=== PATIENT | female | born 1960 | race Caucasian/White ===

== ENCOUNTER 2017-01-01 12:31 | Emergency (ER) | payer BC, MEDICARE | END 2017-01-01 15:13 | disposition left against medical advice (07) | LOC: UCEAST 12:31 | DX: J02.9 Acute pharyngitis, unspecified (principal); Z53.21 Procedure and treatment not carried out due to patient leaving prior to being seen by health care provider ==

== ENCOUNTER 2017-02-08 17:29 | Emergency (ER) | payer BC, MEDICARE ==
[2017-02-08 18:11] VITALS: BP 147/74
--- NOTE | 2017-02-08 19:52 | UC ---
Lacy Villanueva Edward, scribed for Avery Modi MD on 02/08/17 at 1859 . Respiratory Complaint HPI - HPI Summary HPI Summary: 56 y/o female presents to [facility] c/o cold-like symptoms. Patient has had these sx for around 3 weeks. Sx include rhinorrhea (green discharge), sore throat ( burning pain rated 5/10 at triage), fatigue, wheezing, FRANCISCO, and a productive cough with green discharge. Denies fever. PMHx no asthma, COPD. Smoker. NKDA. - History of Current Complaint Chief Complaint: UCRespiratory Stated Complaint: COUGH WITH CONGESTION Time Seen by Provider: 02/08/17 18:34 Hx Obtained From: Patient Onset/Duration: Lasting Weeks - Around 3 weeks Pain Intensity: 5 Pain Scale Used: 0-10 Numeric Character: Cough: Productive - Green Associated Signs And Symptoms: Positive: Wheezing, Nasal Congestion - Nasal discharge. Negative: Fever - Allergies/Home Medications Allergies/Adverse Reactions: Allergies Allergy/AdvReac Type Severity Reaction Status Date / Time No Known Allergies Allergy Verified 02/08/17 18:11 PMH/Surg Hx/FS Hx/Imm Hx Previously Healthy: No - Surgical History Surgical History: Yes Surgery Procedure, Year, and Place: colon radiation. full hysterectomy. D&C. Brain surgery - Family History Known Family History: Positive: Hypertension - Mother and sister, Other - Father - lymphoma - Social History Occupation: Student Lives: With Family - Alcohol Use: None Substance Use Type: None Smoking Status (MU): Former Smoker Type: Cigarettes Length of Time of Smoking/Using Tobacco: 8 years Have You Smoked in the Last Year: No When Did the Patient Quit Smoking/Using Tobacco: 1998 Review of Systems Constitutional: Fatigue Skin: Negative Eyes: Negative ENT: Sore Throat, Nasal Discharge - Green Respiratory: Cough - Green discharge, Other - Wheezing Cardiovascular: Negative Gastrointestinal: Negative Genitourinary: Negative Motor: Negative Neurovascular: Negative Musculoskeletal: Negative Neurological: Headache Psychological: Negative All Other Systems Reviewed And Are Negative: Yes Physical Exam Triage Information Reviewed: Yes Appearance: Well-Appearing, No Pain Distress Vital Signs: Initial Vital Signs Temp 98.9 F 02/08/17 18:04 Pulse 94 02/08/17 18:04 Resp 18 02/08/17 18:04 BP 147/74 02/08/17 18:04 Pulse Ox 100 02/08/17 18:04 Vital Signs Reviewed: Yes Eye Exam: Normal ENT: Positive: TMs normal, Other: - Rhinorrhea. Posterior pharynx benign. Neck: Positive: Supple, Nontender Respiratory: Positive: Wheezing - Mild, scattered bilateral wheezing Cardiovascular: Positive: RRR Abdomen Description: Positive: Nontender, Soft Bowel Sounds: Positive: Present Musculoskeletal: Positive: Strength Intact, ROM Intact Neurological: Positive: Alert Psychological Exam: Normal Skin Exam: Normal UC Diagnostic Evaluation - Laboratory O2 Sat by Pulse Oximetry: 100 Respiratory Course/Dx - Course Course Of Treatment: MEDICATIONS REVIEWED. - Differential Dx/Diagnosis Provider Diagnoses: BRONCHITIS Discharge - Discharge Plan Condition: Stable Disposition: HOME Prescriptions: Azithromyxin LASHA (NF) [Z-Lasha (Zithromax) 250 mg tabs #6] 2 tab PO .TODAY, THEN 1 DAILY #6 tab Patient Education Materials: Acute Bronchitis (ED) Referrals: Sangita Pierson NP [Primary Care Provider] - Additional Instructions: FOLLOW UP WITH YOUR DOCTOR. GET SEEN AGAIN OR GO TO THE EMERGENCY DEPARTMENT FOR ANY WORSENING OF YOUR CONDITION OR QUESTIONS OR CONCERNS. The documentation as recorded by the Lacy meng Edward accurately reflects the service I personally performed and the decisions made by me, Avery Modi MD.
== END 2017-02-08 19:16 | disposition home or self-care (01) ==
LOC: UCEAST 17:29
DX: J40 Bronchitis, not specified as acute or chronic (principal); Z87.891 Personal history of nicotine dependence
CPT/HCPCS: 99212; G0463

== ENCOUNTER 2017-02-10 07:05 | Emergency (ER) | payer BC, MEDICARE ==
[2017-02-10 07:14] VITALS: BP 147/78
--- NOTE | 2017-02-10 11:30 | UC ---
Lacy Villanueva Edward, scribed for Carmen Roberson DO on 02/10/17 at 0718 . Complaint Female HPI - HPI Summary HPI Summary: 56 y/o female presents to [facility] c/o burning with urination and hematuria. The patient's symptoms started yesterday. Associated sx: frequency, urgency, and a cough. Denies abd pain, back pain, sore throat, ear ache, CP, SOB, N/V. PMHx seizures, interstitial cystitis, UTI and bronchitis. Patient states that these symptoms are in line with her previous UTIs. She is also currently on Z Pack for bronchitis. - History Of Current Complaint Chief Complaint: UCGU Stated Complaint: URINARY ISSUE Time Seen by Provider: 02/10/17 07:08 Hx Obtained From: Patient Character: Burning - with urination Associated Signs And Symptoms: Negative: Back Pain, Nausea, Vomiting(# Of Episodes =) - Allergies/Home Medications Allergies/Adverse Reactions: Allergies Allergy/AdvReac Type Severity Reaction Status Date / Time No Known Allergies Allergy Verified 02/10/17 07:14 Home Medications: Home Medications Solifenacin(NF) [Vesicare(NF)] 10 mg PO DAILY 02/10/17 [History Confirmed ] PMH/Surg Hx/FS Hx/Imm Hx Previously Healthy: No Endocrine History: Hypothyroidism Other GI/ History: Interstitial cystitis, UTI Neurological History: Seizures Cancer History: Other - Colon CA 2007 Other Cancer History: Colon CA 2007 - Surgical History Surgical History: Yes Surgery Procedure, Year, and Place: colon radiation. full hysterectomy. D&C. Brain surgery - Family History Known Family History: Positive: Hypertension - Mother and sister, Other - Father - lymphoma - Social History Alcohol Use: None Substance Use Type: None Smoking Status (MU): Former Smoker Type: Cigarettes Length of Time of Smoking/Using Tobacco: 8 years Have You Smoked in the Last Year: No When Did the Patient Quit Smoking/Using Tobacco: 1998 Review of Systems Constitutional: Negative Skin: Negative Eyes: Negative ENT: Negative - No sore throat, ear ache, nasal discharge Respiratory: Cough Cardiovascular: Negative - No CP Gastrointestinal: Negative Genitourinary: Dysuria, Hematuria, Frequency, Urgency Motor: Negative Neurovascular: Negative Musculoskeletal: Negative - No body aches Neurological: Negative Psychological: Negative All Other Systems Reviewed And Are Negative: Yes Physical Exam Triage Information Reviewed: Yes Appearance: Well-Appearing, No Pain Distress, Well-Nourished Vital Signs: Initial Vital Signs Temp 96.8 F 02/10/17 07:10 Pulse 93 02/10/17 07:10 Resp 16 02/10/17 07:10 BP 147/78 02/10/17 07:10 Pulse Ox 98 02/10/17 07:10 Vital Signs Reviewed: Yes Eyes: Positive: Conjunctiva Clear. Negative: Discharge ENT: Positive: Hearing grossly normal. Negative: Muffled/hoarse voice Neck exam: Normal Neck: Positive: Supple Respiratory: Positive: Lungs clear, Normal breath sounds, No respiratory distress, No accessory muscle use Cardiovascular: Positive: RRR, No Murmur Abdomen Description: Positive: Nontender, Soft. Negative: CVA Tenderness (R), CVA Tenderness (L), Distended, Guarding Bowel Sounds: Positive: Present Musculoskeletal Exam: Normal Neurological: Positive: Alert, Muscle Tone Normal Psychological Exam: Normal Psychological: Positive: Age Appropriate Behavior Skin Exam: Normal, Other - Warm, dry, normal color Complaint Female Dx - Differential Dx/Diagnosis Provider Diagnoses: UTI, HEMATURIA Discharge - Discharge Plan Condition: Stable Disposition: HOME Prescriptions: Phenazopyridine TAB* [Pyridium TAB*] 200 mdi PO TID PRN #6 tab PRN Reason: Pain Sulfamethox/Trimethoprim DS* [Bactrim DS 800/160 TAB*] 1 tab PO BID #6 tab Patient Education Materials: Urinary Tract Infection in Women (ED), Hematuria ( ED), Interstitial Cystitis (ED) Referrals: Sangita Pierson NP [Primary Care Provider] - (FOLLOW UP IN 2 DAYS IF NOT IMPROVING. OTHERWISE FOLLOW UP IN 2 WEEKS.) Additional Instructions: ANTIBIOTIC THERAPY: You have been given an antibiotic prescription. It's important that you take all the medication, unless instructed otherwise by your physician. Failure to complete the entire course can result in relapse of your condition. Common side effects of antibiotics include nausea, intestinal cramping, or diarrhea. Women may develop vaginal yeast infections, and babies can get yeast (thrush) in the mouth following the use of antibiotics. Contact your physician if you develop significant side effects from this medication. Allergy to this antibiotic can result in hives, wheezing, faintness, or itching. If symptoms of allergy occur, stop the medication and call the doctor. ANYTIME YOU TAKE AN ANTIBIOTIC, IT IS IMPORTANT TO REPLENISH THE BODY'D SUPPLY OF "GOOD BACTERIA." YOU CAN GET GOOD BACTERIA FROM HIGH QUALITY CULTURED FOODS SUCH LOCAL YOGURT, SOUR KRAUT, SHARAN BURAK, NATURALLY FERMENTED PICKLES AND PROBIOTIC DRINKS. YOU CAN ALSO GET GOOD BACTERIA FROM A PROBIOTIC SUPPLEMENT. The documentation as recorded by the scribeLacy Edward accurately reflects the service I personally performed and the decisions made by me, Carmen Roberson DO.
--- NOTE | 2017-02-12 11:06 | UC ---
Progress - Progress Note Progress Note: notify pt UTI resistent to bactrim stop bactrim keflex 500mg bid eRxed
== END 2017-02-10 08:38 | disposition home or self-care (01) ==
LOC: UCEAST 07:05
DX: N39.0 Urinary tract infection, site not specified (principal); R31.9 Hematuria, unspecified; B96.20 Unspecified Escherichia coli [E. coli] as the cause of diseases classified elsewhere; Z16.29 Resistance to other single specified antibiotic; Z16.11 Resistance to penicillins; J40 Bronchitis, not specified as acute or chronic; Z79.2 Long term (current) use of antibiotics; Z87.891 Personal history of nicotine dependence
CPT/HCPCS: 81003; 87077; 87086; 87186; 99212; G0463

== ENCOUNTER → 2017-06-02 07:47 | Emergency (ER) | payer BC, OTHER, MEDICARE ==
[~2017-06-02 07:47] MED LIST: Ketorolac INJ* 60 MG/2 ML VIAL IM ONE
--- NOTE | 2017-06-02 08:51 | RAD ---
HISTORY: Right ankle pain, status post fall COMPARISONS: None VIEWS: 3, Frontal, lateral, and oblique views of the right breast FINDINGS: BONE DENSITY: Normal. BONES: There is no displaced fracture. JOINTS: There is no arthropathy. ALIGNMENT: There is no dislocation. SOFT TISSUES: Unremarkable. OTHER FINDINGS: None. IMPRESSION: NO ACUTE OSSEOUS INJURY. IF SYMPTOMS PERSIST, RECOMMEND REPEAT IMAGING.
--- NOTE | 2017-06-02 08:52 | RAD ---
HISTORY: Right knee pain, status post fall COMPARISONS: None VIEWS: 4, Frontal, lateral, axial, and oblique views of the right knee FINDINGS: BONE DENSITY: Normal. BONES: There is no displaced fracture. JOINTS: There is no arthropathy. ALIGNMENT: There is no dislocation. SOFT TISSUES: There is dystrophic calcification along the lateral distal femur suggestive of a calcific tendinopathy. OTHER FINDINGS: None. IMPRESSION: NO ACUTE OSSEOUS INJURY. IF SYMPTOMS PERSIST, RECOMMEND REPEAT IMAGING.
--- NOTE | 2017-06-02 08:53 | RAD ---
HISTORY: Fall, right-sided chest pain COMPARISONS: None VIEWS: 7, Frontal view of the chest with frontal and oblique views of the right hemithorax. FINDINGS: There is no displaced rib fracture or pneumothorax. The visualized lungs are clear. IMPRESSION: NO DISPLACED RIB FRACTURE OR PNEUMOTHORAX.
[2017-06-02 09:37] VITALS: BP 133/95
--- NOTE | 2017-06-02 18:50 | ED ---
Lacy Villanueva Edward, scribed for Reynaldo Pearl MD on 06/02/17 at 0750 . Adult Trauma - HPI Summary HPI Summary: 56 y/o female presents to the ED c/o immediate onset R ankle pain s/p fall last night. The pt tripped over a curb and fell onto her R side. The ankle pain is rated 9/10 currently, aggravated with walking and weight bearing. Associated sx : R ankle swelling, R knee swelling and pain, R wrist and R breast pain. The pt states her R breast is black and blue s/p fall. PMHx epilepsy. - History of Current Complaint Stated Complaint: FALL, RIGHT FOOT PAIN Hx Obtained From: Patient Mechanism of Injury: Fall Loss of Consciousness: no loss of consciousness Onset/Duration: Still Present Onset of Pain: Immediate Location: Chest - R side brease, Extremities - R ankle, R ankle, R knee Aggravating Factor(s): Weight Bearing, Ambulation Alleviating Factor(s): Nothing Associated Signs & Symptoms: Positive: Ecchymosis - Allergy/Home Medications Allergies/Adverse Reactions: Allergies Allergy/AdvReac Type Severity Reaction Status Date / Time No Known Allergies Allergy Verified 02/10/17 07:14 PMH/Surg Hx/FS Hx/Imm Hx Previously Healthy: No Endocrine/Hematology History: Reports: Hx Thyroid Disease Denies: Hx Diabetes Cardiovascular History: Denies: Hx Hypertension Respiratory History: Denies: Hx Asthma, Hx Chronic Obstructive Pulmonary Disease (COPD) GI History: Denies: Hx Ulcer Musculoskeletal History: Denies: Hx Osteoporosis - Cancer History Cancer Type, Location and Year: Colon CA 2007 Hx Chemotherapy: Yes - ANAL CANCER 2007 Hx Radiation Therapy: Yes - ANAL CANCER 2007 - Surgical History Surgery Procedure, Year, and Place: colon radiation. full hysterectomy. D&C. Brain surgery Infectious Disease History: Denies: Hx Clostridium Difficile, Hx Hepatitis, Hx Human Immunodeficiency Virus (HIV), Hx of Known/Suspected MRSA, Hx Shingles, Hx Tuberculosis, Hx Known/ Suspected VRE, Hx Known/Suspected VRSA, History Other Infectious Disease - Family History Known Family History: Positive: Hypertension - Mother and sister, Other - Father - lymphoma - Social History Alcohol Use: None Substance Use Type: Reports: None Smoking Status (MU): Former Smoker Type: Cigarettes Length of Time of Smoking/Using Tobacco: 8 years Have You Smoked in the Last Year: No Review of Systems Constitutional: Negative Eyes: Negative ENT: Negative Cardiovascular: Negative Respiratory: Negative Gastrointestinal: Negative Genitourinary: Negative Positive: Arthralgia - R knee, R ankle, R wrist, R side breast, Edema - R ankle , R knee Positive: Bruising - R breast Neurological: Negative Psychological: Normal All Other Systems Reviewed And Are Negative: Yes Physical Exam - Summary Physical Exam Summary: VITAL SIGNS: Reviewed. GENERAL: ~Patient is a well-developed and nourished female who is lying comfortable in the stretcher. ~Patient is not in any acute respiratory distress. HEAD AND FACE: No signs of trauma. ~No ecchymosis, hematomas or skull depressions. No sinus tenderness. EYES: PERRLA, EOMI x 2, No injected conjunctiva, no nystagmus. EARS: Hearing grossly intact. Ear canals and tympanic membranes are within normal limits. MOUTH: Oropharynx within normal limits. NECK: Supple, trachea is midline, no adenopathy, no JVD, no carotid bruit, no c- spine tenderness, neck with full ROM. CHEST: Symmetric. Ecchymosis @ R breast. Tenderness to the R ribcage. LUNGS: Clear to auscultation bilaterally. No wheezing or crackles. CVS: Regular rate and rhythm, S1 and S2 present, no murmurs or gallops appreciated. ABDOMEN: Soft, non-tender. No signs of distention. No rebound no guarding, and no masses palpated. Bowel sounds are normal. EXTREMITIES: FROM in all major joints, no cyanosis or clubbing. R ankle pain. Bilateral LE swelling. NEURO: Alert and oriented x 3. No acute neurological deficits. Speech is normal and follows commands. SKIN: Dry and warm Triage Information Reviewed: Yes Vital Signs On Initial Exam: Initial Vitals Temp Pulse Resp BP Pulse Ox 97.9 F 87 20 140/55 99 06/02/17 07:49 06/02/17 07:49 06/02/17 07:49 06/02/17 07:49 06/02/17 07:49 Vital Signs Reviewed: Yes Diagnostics - Vital Signs Vital Signs Temp Pulse Resp BP Pulse Ox 06/02/17 07:49 97.9 F 87 20 140/55 99 - Laboratory Lab Statement: Any lab studies that have been ordered have been reviewed, and results considered in the medical decision making process. - Radiology RIBS W/ CHEST XR Xray Interpretation: No Acute Changes - NO DISPLACED RIB FRACTURE OR PNEUMOTHORAX. Radiology Interpretation Completed By: Radiologist R KNEE XR Xray Interpretation: No Acute Changes - NO ACUTE OSSEOUS INJURY. IF SYMPTOMS PERSIST, RECOMMEND REPEAT IMAGING. Radiology Interpretation Completed By: Radiologist R ANKLE XR Xray Interpretation: No Acute Changes - NO ACUTE OSSEOUS INJURY. IF SYMPTOMS PERSIST, RECOMMEND REPEAT IMAGING. Radiology Interpretation Completed By: Radiologist Adult Trauma Course/Dx - Course Assessment/Plan: 56 y/o female presents to the ED c/o immediate onset R ankle pain s/p fall last night. The pt tripped over a curb and fell onto her R side. The ankle pain is aggravated with walking and weight bearing. Associated sx: R ankle swelling, R knee swelling and pain, R wrist and R breast pain. The pt states her R breast is black and blue s/p fall. PMHx epilepsy. RIBS W/ CHEST XR SHOWS NO DISPLACED RIB FRACTURE OR PNEUMOTHORAX. R KNEE XR and R ANKLE XR SHOW NO ACUTE OSSEOUS INJURY. IF SYMPTOMS PERSIST, RECOMMEND REPEAT IMAGING. Even thought pt doesnt have an ankle fracture maybe the pt has some injury therefore the pt will be placed in karel bandage with gel cast with crutches. The pt was given toradol for pain and her symptoms improved. The pt was recommended to return if her symptoms do not prove or are worsened. Pt is hemodynamically stable, A&Ox3. - Diagnoses Differential Diagnosis/HQI/PQRI: Positive: Contusion(s), Fracture, Dislocation, Sprain, Strain Provider Diagnoses: Knee contusion, Traumatic ecchymosis of right female breast, Ankle sprain Discharge - Discharge Plan Condition: Stable Disposition: HOME Patient Education Materials: Knee Pain (ED), Ankle Sprain (ED), Ecchymosis (ED) Referrals: Sangita Pierson NP [Primary Care Provider] - 4 Days (PLEASE F/U IN 3-5 DAYS) The documentation as recorded by the Lacy meng Edward accurately reflects the service I personally performed and the decisions made by Dae peacock Walter, MD.
== END | disposition home or self-care (01) ==
LOC: ED 07:47
DX: S80.01XA Contusion of right knee, initial encounter (principal); S93.401A Sprain of unspecified ligament of right ankle, initial encounter; S20.01XA Contusion of right breast, initial encounter; W19.XXXA Unspecified fall, initial encounter; Y93.9 Activity, unspecified; Y92.9 Unspecified place or not applicable; Z87.891 Personal history of nicotine dependence
CPT/HCPCS: 96372; 99282

== ENCOUNTER 2018-01-05 13:43 | Emergency (ER) | payer BC, MEDICARE, OTHER ==
--- OUTSIDE RECORDS SUMMARY | 2018-01-05 13:54 | XMS REPORT ---
:1960 External Reference #:[id number] Author Organization [facility] Address [address] [address] Phone [phone] Care Team Providers Name Role Phone Latesha Alex MD Primary Care Physician Unavailable Payers Type Date Identification Numbers Payment Provider Subscriber Commercial Effective: Policy Number: MIN Gloria Johnson 2012 [id number] Group Name: Active Employee [address] PayID: [id number] [place] [address] Medigap Part B Effective: 1996 Policy Number: Medicare Autumn Johnson [id number] Group Name: Sec To Yadiramin Tonny [address] PayID: [id number] [place] [id number] Medigap Part B Effective: 2012 Policy Number: BS Gloria Johnson [id number] PayID: [id number] [address] [address] [place] [id number] Advance Directives Type Date Description Status Comment Other Directive 01/30/2014 Health Care Proxy Current and Verified Problems Date Description Provider Status Onset: 04/05/2011 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 Active digestive and respiratory systems Onset: 05/24/2011 Epilepsy Sangita Pierson, N.P. Active Onset: 05/24/2011 Hyperlipidemia Sangita Pierson, N.P. Active Onset: 11/02/2011 Lymphedema Sangita Pierson, N.P. Active Onset: 06/05/2012 Hypothyroidism Sangita Pierson, N.P. Active Onset: 06/05/2012 Osteochondropathy Sangita Pierson, N.P. Active Family History Date Family Member(s) Problem(s) Comments : (age 69 Father due to Lymphoma Years) Mother Hypertension age 77 Children 2 1 Son - age 25 Healthy 1 Son - age 23 Healthy Siblings 3 Sisters - All Healthy Social History Type Date Description Comments Marital Status Occupation Homemaker Smoking Patient is a former smoker Smoked 3 years, less than a pack a day. Quit at age 20 Exercise Type/Frequency Exercises sporadically Allergies, Adverse Reactions, Alerts Date Description Reaction Status Severity Comments 05/20/2010 No Known Drug Allergy active Medications Medication Date Status Form Strength Qnty SIG Indications Ordering Provider Premarin 10/31 Active Tablets 0.3mg 90tab 1 tablet s po daily Varn, N.P. Compression 04/16 Active Misc 2unit Knee High s 30 - 40 Varn, N.P. mm Synthroid 09/17 Active Tablets 100mcg 90tab take one s tablet by Varn, N.P. mouth every day Caltrate 600+D 04/05 Active Chewtabs 600-400mg 1 po bid -Unit Mickie Rod, [facility] Centrum Silver 04/05 Active Tablets 1 po qd Mickie Rod, [facility] Depakote Active Tablets DR 250mg 360ta 3 tablets Unknown /0000 bs twice a day Lamictal Active Tablets 100mg 1 tablet Unknown /0000 twice a day Dexilant Active Capsules DR 60mg 1 by Unknown /0000 mouth every day Betmiga Active 50mg 1 po qday Fluconazole 08/07 Hx Tablets 150mg 2tabs one by B37.3 mouth december LEODAN Horton - repeat in 09/12 3 days as needed Cephalexin 07/26 Hx Capsules 500mg 28cap take one K11.20 s capsule LEODAN Horton - every 6 12/28 hours 7 days Lotrisone 05/09 Hx Cream 1-0.05% 15uni apply ts externall Varn, N.P. - y bid-tid 09/12 Fluconazole 02/23 Hx Tablets 150mg 2tabs one by Sangita /2017 mouth may Varn, N.P. - repeat in 03/01 3 days needed Lotrisone 02/23 Hx Cream 1-0.05% 15gm apply externall Varn, N.P. - y bid-tid 03/09 Compression 02/20 Hx 1unit use every I89.0 s evening Varn, N.P. - dx: 09/12 lymphed a cpt [id number] Nystatin 07/24 Hx Powder 1unit apply L30.4 s twice a Varn, N.P. - day until 09/12 clears Azithromycin 07/24 Hx Tablets 250mg 6tabs two tabs J20. day one, Varn, N.P. - one daily 08/03 till Benzonatate 07/24 Hx Capsules 100mg 30cap one by J20. s mouth Varn, N.P. - three 08/07 daily as needed for cough Guaifenesin 07/21 Hx Tablets 400mg 60tab One po s bid prn Varn, N.P. - cough 08/04 Cheratussin ac 01/23 Hx Syrup 100-10mg/ 120ml 1 - 2 J20.9 Salbador 5ML teaspoons Sol [facility] - by mouth 02/01 every hours as needed Azithromycin 01/23 Hx Tablets 250mg 6tabs 2 tabs by J20.9 Salbador mouth Sol [facility] - every day 01/28 x1 day, tab by mouth every day x 4 days Levaquin 12/16 Hx Tablets 500mg 10tab 1 by J20.9 s mouth Varn, N.P. - daily for 12/26 10 Prednisone 12/16 Hx Tablets 10mg 40tab 4 tablets J20. s by mouth Varn, N.P. - for 4 01/01 days tablets by mouth for 4 days 2 tablets by mouth for 4 days 1 tablet by mouth for 4 days Cheratussin ac 12/16 Hx Syrup 100-10mg/ 120ml 1 - 2 J20.9 Sangita /2016 5ML teaspoons Varn, N.P. - by mouth 12/23 every hours as needed Flovent HFA 12/16 Hx Aerosol 110mcg/Ac 12gm 2 puffs J20.9 t twice Varn, N.P. - daily 12/30 Azithromycin 12/12 Hx Tablets 250mg 6tabs two tabs H66.92 day one, Varn, N.P. - one daily 12/22 till Benzonatate 12/12 Hx Capsules 200mg 30cap one by J20.9 s mouth Varn, N.P. - three 12/22 daily as needed for cough Ventolin HFA 12/12 Hx Aerosol 108(90Bas 1inha 1 to 2 J20.9 e) ler inhalatio Varn, N.P. - mcg/Act ns every 12/22 4 as needed Fluconazole 10/10 Hx Tablets 150mg 2tabs one by B37.3 mouth may Varn, N.P. - repeat in 12/12 3 days needed Lotrisone 10/10 Hx Cream 1-0.05% 15gm apply B37.3 externall Varn, N.P. - y bid-tid 10/24 Augmentin 09/29 Hx Tablets 875-125mg 20tab one by J01.00 s mouth Varn, N.P. - every 12 10/08 hours ten days Fluticasone 09/29 Hx Suspension 50mcg/Act 16uni 2 sprays J01.00 ts each Varn, N.P. - nostril 10/12 daily needed Benzonatate 09/20 Hx Capsules 200mg 30cap one by J06.9 s mouth Varn, N.P. - three daily as needed for cough Nystatin 08/20 Hx Powder 1unit apply L30.4 s twice a Varn, N.P. - day until 12/12 clears Synthroid 06/25 Hx Tablets 100mcg 30tab 1 by s mouth Varn, N.P. - every day 08/06 Ciprofloxacin HCL 02/12 Hx Tablets 250mg 14tab one by 599.0 s mouth Varn, N.P. - twice a 02/19 day for days Tamiflu 12/24 Hx Capsules 75mg 10cap take one 465.9 Salbador s capsule Sol [facility] - twice 12/31 daily for 5 days. Fluconazole 12/01 Hx Tablets 150mg 2tabs one by 112.1 mouth may Varn, N.P. - repeat in 12/07 3 days as needed Clobetasol 12/01 Hx Cream 0.05% 60gm apply 112.1 thin film Varn, N.P. - twice 02/12 daily not more than 2 weeks then two weeks off and may start again if needed Azithromycin 06/26 Hx Tablets 250mg 6tabs two tabs day one, Varn, N.P. - one daily 07/06 till Benzonatate 06/22 Hx Capsules 100mg 30cap one by 465.9 s mouth Varn, N.P. - three 07/02 daily as needed for cough Triamcinolone 12/08 Hx Cream 0.1% 30gm apply Britton Acetonide twice a Varn, N.P. - day until 01/30 Azithromycin 01/09 Hx Tablets 250mg 6tabs two tabs 466.0 day one, Viola, - one daily M.D., FACP 09/08 till Flovent HFA 01/09 Hx Aerosol 44mcg/Act 1unit 2 puffs 466.0 s twice Viola, - daily for M.D., FACP 01/20 10 Guaifenesin ac 01/09 Hx Syrup 100-10mg/ 100cc 1 tsp by 466.0 5ML mouth Viola, - every day M.D., FACP 09/08 night as needed Levothyroxine 07/01 Hx Tablets 125mcg 30tab 1 po qd 244.9 Sangita Sodium s Varn, N.P. - 08/28 Fluconazole 04/22 Hx Tablets 150mg 2tabs one by 112.1 mouth may Varn, N.P. - repeat in 04/28 3 days as needed Lotrisone 04/22 Hx Cream 1-0.05% 15gm apply 112.1 externall Varn, N.P. - y bid-tid 04/29 Triamcinolone 04/19 Hx Cream 0.1% 30gm apply bid 782.1 Latesha Acetonide until Cotton, - clear M.D. 07/01 Diflucan 04/15 Hx Tablets 150mg 2tabs sig 1 po repeat in Varn, N.P. - 3 days if 05/14 Medrol Dosepak 04/09 Hx Tablets 4mg 1pak as 782.1 directed Varn, N.P. - 04/15 Triamcinolone 04/09 Hx Cream 0.1% 30gm apply bid 782.1 Acetonide until Varn, N.P. - clear 04/16 Cephalexin 04/09 Hx Capsules 500mg 21cap 1 po tid 686.9 s for 7 Varn, N.P. - days 04/16 Nasonex 03/28 Hx Suspension 50mcg/Act 1unit 2 sprays 461.9 s to each Viola, - nostril M.D., FACP 07/01 twice daily Guaiatussin ac 03/28 Hx Syrup 100-10mg/ 4oz 1-2 tsp 461.9 Jayne 5ML by mouth Viola, - qhs prn M.D., FACP 04/09 Amoxicillin 12/18 Hx Capsules 500mg 30cap one po 709.9 Latesha /2012 s tid for Cotton, - 10 days M.D. 12/28 Sulfamethoxazole/ 12/18 Hx Tablets 800-160mg 20tab one po 709.9 Latesha Trimethoprim DS s bid for Cotton, - 10 days M.D. 12/28 Levothyroxine 08/07 Hx Tablets 75mcg 90tab 1 po qd 244.9 Latesha Sodium Obed Cochran M.D. 09/17 Levothyroxine 06/06 Hx Tablets 50mcg 90tab 1 po qd 244.9 Jayne s Obed Rod M.D., [facility] 08/07 Premarin 05/24 Hx Tablets 0.3mg 90tab 1 by Sangita s mouth Varn, N.P. - every day 10/31 Vesicare 04/05 Hx Tablets 10mg 1 po qd Jayne Obed Rod M.D., [facility] 09/08 Hydrochlorothiazi 04/05 Hx Tablets 25mg 90tab 1 po qd 782.3 Latesha de Obed Cochran M.D. 05/[address] 40mg 90tab 1 tablet Latesha /0000 s daily Obed Alex M.D. 04/27 Premarin Hx Tablets 0.625mg 30tab 1 tablet Jayne /0000 s daily Obed Rod M.D., [facility] 05/24 Hydrochlorothiazi Hx Tablets 25mg 90tab 1 tablet Unknown de / s daily - 04/05 Furosemide Hx Tablets 20mg 10tab 1 po Unknown /0000 s qa-va [facility] - um daily 07/01 dose Cephalexin Hx Capsules 500mg 21cap take 1 Unknown /0000 s tablet by - mouth 03/28 times a day Gelnique Hx Gel 3(28)% Unknown /0000 (mg/Act) - 01/30 Vesicare Hx Tablets 10mg 30tab 1 by Unknown /0000 s mouth - every day 04/27 Toviaz Hx Tablets ER 8mg once a Unknown /[address] Obed torres 12/[address] 60mg 30cap 1 by Unknown /0000 s mouth - every day 12/01 Vesicare Hx Tablets 10mg 1 by Unknown /0000 mouth - every day 06/22 Myrbetriq Hx Tablets ER 50mg 1 by Unknown /0000 24HR mouth - every day 09/12 Levofloxacin Hx Solution 25mg/ml 20 Unknown /0000 millilite - rs by 09/11 each day Immunizations CPT Code Status Date Vaccine Lot # [id number] Given 06/10/2015 Flu Vaccine NOS Q2037 Given 06/05/2012 Fluvirin Im 3Yrs And Older [id number] Given 05/24/2011 Afluria Vaccine [id number] Given 05/24/2011 Tdap - Tetanus/Diptheria/Acellular Pertussis [id number] Vital Signs Date Vital Result Comment 12/21/2017 Height 66 inches 5'6" Weight 234.00 lb Heart Rate 60 /min BP Systolic Sitting 140 mmHg BP Diastolic Sitting 76 mmHg Respiratory Rate 16 /min Pain Level 0 BMI (Body Mass Index) 37.8 kg/m2 09/14/2017 Height 66 inches 5'6" Weight 230.00 lb Heart Rate 74 /min BP Systolic Sitting 118 mmHg BP Diastolic Sitting 68 mmHg Respiratory Rate 16 /min Pain Level 0 BMI (Body Mass Index) 37.1 kg/m2 07/26/2017 Height 66 inches 5'6" Weight 238.00 lb Heart Rate 84 /min BP Systolic Sitting 126 mmHg BP Diastolic Sitting 72 mmHg Body Temperature 97.4 F O2 % BldC Oximetry 97 % BMI (Body Mass Index) 38.4 kg/m2 07/19/2017 Weight 238.00 lb Heart Rate 85 /min BP Systolic 132 mmHg BP Diastolic 76 mmHg O2 % BldC Oximetry 96 % 06/08/2017 Weight 238.50 lb Heart Rate 92 /min BP Systolic 120 mmHg BP Diastolic 70 mmHg Body Temperature 97.5 F O2 % BldC Oximetry 98 % 05/25/2017 Weight 241.25 lb Heart Rate 87 /min BP Systolic 120 mmHg BP Diastolic 66 mmHg Body Temperature 96.9 F O2 % BldC Oximetry 98 % 02/20/2017 Height 66 inches 5'6" Weight 232.25 lb Heart Rate 84 /min BP Systolic 110 mmHg BP Diastolic 68 mmHg Body Temperature 97.3 F O2 % BldC Oximetry 97 % BMI (Body Mass Index) 37.5 kg/m2 07/24/2016 Height 66.5 inches 5'6.50" Weight 232.00 lb Heart Rate 86 /min BP Systolic 112 mmHg BP Diastolic 78 mmHg Body Temperature 97.9 F O2 % BldC Oximetry 97 % BMI (Body Mass Index) 36.9 kg/m2 01/24/2016 Weight 229.25 lb Heart Rate 105 /min BP Systolic Sitting 107 mmHg BP Diastolic Sitting 67 mmHg Body Temperature 98.8 F O2 % BldC Oximetry 98 % 12/17/2015 Weight 234.00 lb Heart Rate 96 /min BP Systolic Sitting 118 mmHg BP Diastolic Sitting 70 mmHg Respiratory Rate 15 /min Body Temperature 97.6 F O2 % BldC Oximetry 98 % 12/13/2015 Weight 233.00 lb Heart Rate 99 /min BP Systolic Sitting 126 mmHg BP Diastolic Sitting 74 mmHg Respiratory Rate 16 /min Body Temperature 98.9 F O2 % BldC Oximetry 97 % 10/11/2015 Weight 241.00 lb Heart Rate 98 /min BP Systolic Sitting 119 mmHg BP Diastolic Sitting 69 mmHg Body Temperature 97.3 F O2 % BldC Oximetry 98 % 09/29/2015 Weight 236.00 lb Heart Rate 118 /min BP Systolic Sitting 134 mmHg BP Diastolic Sitting 86 mmHg Body Temperature 97.3 F O2 % BldC Oximetry 98 % 09/20/2015 Weight 235.00 lb Heart Rate 80 /min BP Systolic Sitting 128 mmHg BP Diastolic Sitting 84 mmHg Respiratory Rate 15 /min Body Temperature 98.2 F O2 % BldC Oximetry 99 % 08/20/2015 Weight 229.25 lb Heart Rate 96 /min BP Systolic Sitting 116 mmHg BP Diastolic Sitting 76 mmHg Body Temperature 98.1 F O2 % BldC Oximetry 97 % 2015 Height 66.5 inches 5'6.50" Weight 230.00 lb Heart Rate 64 /min BP Systolic Sitting 124 mmHg BP Diastolic Sitting 80 mmHg Respiratory Rate 14 /min Body Temperature 98.0 F O2 % BldC Oximetry 98 % BMI (Body Mass Index) 36.6 kg/m2 02/17/2015 Height 66.5 inches 5'6.50" Weight 228.25 lb Heart Rate 90 /min BP Systolic 112 mmHg BP Diastolic 63 mmHg Body Temperature 98.5 F BMI (Body Mass Index) 36.3 kg/m2 02/12/2015 Height 66.5 inches 5'6.50" Weight 231.50 lb Heart Rate 84 /min BP Systolic 125 mmHg BP Diastolic 67 mmHg Body Temperature 98.1 F BMI (Body Mass Index) 36.8 kg/m2 12/24/2014 Weight 226.00 lb Heart Rate 112 /min BP Systolic Sitting 104 mmHg BP Diastolic Sitting 70 mmHg Body Temperature 102.8 F O2 % BldC Oximetry 98 % 12/01/2014 Height 66.5 inches 5'6.50" Weight 231.00 lb Heart Rate 85 /min BP Systolic 111 mmHg BP Diastolic 64 mmHg Body Temperature 97.4 F BMI (Body Mass Index) 36.7 kg/m2 2014 Height 67 inches 5'7" Weight 222.00 lb Heart Rate 90 /min BP Systolic Sitting 128 mmHg BP Diastolic Sitting 72 mmHg Body Temperature 98.1 F BMI (Body Mass Index) 34.8 kg/m2 04/28/2014 Height 67 inches 5'7" Weight 222.75 lb Heart Rate 102 /min BP Systolic Sitting 118 mmHg BP Diastolic Sitting 68 mmHg Body Temperature 97.0 F O2 % BldC Oximetry 98 % BMI (Body Mass Index) 34.9 kg/m2 01/30/2014 Height 67 inches 5'7" Weight 231.00 lb Heart Rate 104 /min BP Systolic Sitting 122 mmHg BP Diastolic Sitting 70 mmHg BMI (Body Mass Index) 36.2 kg/m2 09/08/2013 Height 67 inches 5'7" Weight 227.00 lb Heart Rate 70 /min BP Systolic Sitting 120 mmHg BP Diastolic Sitting 78 mmHg BMI (Body Mass Index) 35.5 kg/m2 01/09/2013 Weight 230.00 lb Heart Rate 78 /min BP Systolic Sitting 102 mmHg BP Diastolic Sitting 60 mmHg Body Temperature 98.2 F 08/29/2012 Height 67.5 inches 5'7.50" Weight 231.00 lb Heart Rate 78 /min BP Systolic Sitting 130 mmHg BP Diastolic Sitting 82 mmHg BMI (Body Mass Index) 35.6 kg/m2 07/01/2012 Height 67.5 inches 5'7.50" Weight 231.00 lb Heart Rate 72 /min BP Systolic Sitting 110 mmHg BP Diastolic Sitting 70 mmHg BMI (Body Mass Index) 35.6 kg/m2 06/05/2012 Height 67.5 inches 5'7.50" Weight 227.00 lb Heart Rate 80 /min BP Systolic Sitting 126 mmHg BP Diastolic Sitting 66 mmHg BMI (Body Mass Index) 35.0 kg/m2 05/14/2012 Height 67.5 inches 5'7.50" Weight 224.00 lb Heart Rate 80 /min BP Systolic Sitting 120 mmHg BP Diastolic Sitting 78 mmHg BMI (Body Mass Index) 34.6 kg/m2 04/22/2012 Height 67.5 inches 5'7.50" Weight 222.75 lb Heart Rate 80 /min BP Systolic Sitting 146 mmHg BP Diastolic Sitting 82 mmHg Body Temperature 98.2 F BMI (Body Mass Index) 34.4 kg/m2 04/09/2012 Height 67.5 inches 5'7.50" Weight 225.00 lb Heart Rate 80 /min BP Systolic Sitting 128 mmHg BP Diastolic Sitting 82 mmHg BMI (Body Mass Index) 34.7 kg/m2 03/28/2012 Height 67.5 inches 5'7.50" Weight 221.00 lb Heart Rate 84 /min BP Systolic Sitting 122 mmHg BP Diastolic Sitting 66 mmHg Body Temperature 98.3 F BMI (Body Mass Index) 34.1 kg/m2 12/26/2011 Height 65 inches 5'5" Weight 231.00 lb Heart Rate 86 /min BP Systolic Sitting 122 mmHg BP Diastolic Sitting 74 mmHg BMI (Body Mass Index) 38.4 kg/m2 12/22/2011 Height 65 inches 5'5" Weight 226.00 lb Heart Rate 88 /min BP Systolic Sitting 120 mmHg BP Diastolic Sitting 84 mmHg BMI (Body Mass Index) 37.6 kg/m2 12/19/2011 Height 65 inches 5'5" Weight 231.00 lb Heart Rate 84 /min BP Systolic Sitting 126 mmHg BP Diastolic Sitting 64 mmHg BMI (Body Mass Index) 38.4 kg/m2 07/12/2011 Height 65 inches 5'5" Weight 226.25 lb Heart Rate 72 /min BP Systolic Sitting 122 mmHg l BP Diastolic Sitting 80 mmHg l BMI (Body Mass Index) 37.6 kg/m2 06/06/2011 Height 65 inches 5'5" Weight 218.00 lb BP Systolic Sitting 108 mmHg L BP Diastolic Sitting 62 mmHg L BMI (Body Mass Index) 36.3 kg/m2 05/24/2011 Height 65 inches 5'5" Weight 216.00 lb Heart Rate 80 /min BP Systolic Sitting 110 mmHg l BP Diastolic Sitting 62 mmHg l BMI (Body Mass Index) 35.9 kg/m2 04/27/2011 Height 66 inches 5'6" Weight 220.00 lb Heart Rate 66 /min BP Systolic 132 mmHg BP Diastolic 78 mmHg Body Temperature 97.5 F BMI (Body Mass Index) 35.5 kg/m2 04/05/2011 Height 66 inches 5'6" Weight 220.00 lb Heart Rate 68 /min BP Systolic Sitting 122 mmHg BP Diastolic Sitting 78 mmHg BMI (Body Mass Index) 35.5 kg/m2 06/03/2010 Weight 216.00 lb Heart Rate 78 /min BP Systolic 118 mmHg BP Diastolic 80 mmHg 05/23/2010 Height 66 inches 5'6" Weight 216.50 lb Heart Rate 72 /min BP Systolic 128 mmHg BP Diastolic 84 mmHg BMI (Body Mass Index) 34.9 kg/m2 Results Test Date Test Result H/L Range Note Laboratory test 04/06/2017 Surgical Pathology SEE RESULT BELOW 1, 2 finding Comp Metabolic Panel 03/16/2017 Sodium 135 mmol/L 133-145 Potassium 4.5 mmol/L 3.5-5.0 Chloride 100 mmol/L Low 101-111 Co2 Carbon Dioxide 29 mmol/L 22-32 Anion Gap 6 mmol/L 2-11 Glucose 88 mg/dL 70-100 Blood Urea Nitrogen 12 mg/dL 6-24 Creatinine 0.75 mg/dL 0.51-0.95 BUN/Creatinine Ratio 16.0 8-20 Calcium 9.0 mg/dL 8.6-10.3 Total Protein 6.2 g/dL Low 6.4-8.9 Albumin 3.7 g/dL 3.2-5.2 Globulin 2.5 g/dL 2-4 Albumin/Globulin Ratio 1.5 1-3 Total Bilirubin 0.40 mg/dL 0.2-1.0 Alkaline Phosphatase 45 U/L 34-104 Alt 10 U/L 7-52 Ast 15 U/L 13-39 Egfr Non- 79.9 >60 Egfr 102.8 >60 3 Lipid Profile (Trig/Chol/HDL) 03/16/2017 Triglycerides 151 mg/dL 4 Cholesterol 175 mg/dL 5 HDL Cholesterol 62.3 mg/dL 6 LDL Cholesterol 83 mg/dL 7 Laboratory test finding 03/16/2017 TSH (Thyroid Stim Horm) 4.39 mcIU/mL 0.34-5.60 CBC Auto Diff 03/02/2017 White Blood Count 5.5 10^3/uL 3.5-10.8 Red Blood Count 3.80 10^6/uL Low 4.0-5.4 Hemoglobin 12.8 g/dL 12.0-16.0 Hematocrit 39 % 35-47 Mean Corpuscular Volume 103 fL High 80-97 Mean Corpuscular Hemoglobin 34 pg High 27-31 Mean Corpuscular HGB Conc 33 g/dL 31-36 Red Cell Distribution Width 13 % 10.5-15 Platelet Count 241 10^3/uL 150-450 Mean Platelet Volume 8 um3 7.4-10.4 Abs Neutrophils 3.3 10^3/uL 1.5-7.7 Abs Lymphocytes 1.4 10^3/uL 1.0-4.8 Abs Monocytes 0.7 10^3/uL 0-0.8 Abs Eosinophils 0.1 10^3/uL 0-0.6 Abs Basophils 0 10^3/uL 0-0.2 Abs Nucleated RBC 0 10^3/uL Granulocyte % 60.2 % 38-83 Lymphocyte % 24.8 % Low 25-47 Monocyte % 12.2 % High 1-9 Eosinophil % 1.9 % 0-6 Basophil % 0.9 % 0-2 Nucleated Red Blood Cells % 0 Comp Metabolic Panel 03/02/2017 Sodium 136 mmol/L 133-145 Potassium 4.7 mmol/L 3.5-5.0 Chloride 101 mmol/L 101-111 Co2 Carbon Dioxide 30 mmol/L 22-32 Anion Gap 5 mmol/L 2-11 Glucose 98 mg/dL 70-100 Blood Urea Nitrogen 13 mg/dL 6-24 Creatinine 0.76 mg/dL 0.51-0.95 BUN/Creatinine Ratio 17.1 8-20 Calcium 9.5 mg/dL 8.6-10.3 Total Protein 6.9 g/dL 6.4-8.9 Albumin 4.0 g/dL 3.2-5.2 Globulin 2.9 g/dL 2-4 Albumin/Globulin Ratio 1.4 1-3 Total Bilirubin 0.40 mg/dL 0.2-1.0 Alkaline Phosphatase 47 U/L 34-104 Alt 9 U/L 7-52 Ast 14 U/L 13-39 Egfr Non- 78.7 >60 Egfr 101.2 >60 8 Urine Culture And 02/10/2017 Urine Culture SEE RESULT 9, 10 Sensitivities BELOW Laboratory test 11/10/2016 TSH (Thyroid Stim 4.84 mcIU/mL 0.34-5.6 finding Horm) 0 Laboratory test 2016 Glucose 94 mg/dL 70-100 11 finding Lipid Profile 2016 Triglycerides 133 mg/dL 12 (Trig/Chol/HDL) Cholesterol 198 mg/dL 13 HDL Cholesterol 68.1 mg/dL 14 LDL Cholesterol 103 mg/dL 15 Laboratory test 2016 TSH (Thyroid Stim 4.78 mcIU/mL 0.34-5.60 16 finding Horm) Laboratory test 04/20/2016 Surgical Pathology SEE RESULT BELOW 17, 18 finding CBC Auto Diff 02/18/2016 White Blood Count 5.1 10^3/uL 3.5-10.8 Red Blood Count 3.86 10^6/uL Low 4.0-5.4 Hemoglobin 12.8 g/dL 12.0-16.0 Hematocrit 38 % 35-47 Mean Corpuscular Volume 100 fL High 80-97 Mean Corpuscular Hemoglobin 33 pg High 27-31 Mean Corpuscular HGB Conc 33 g/dL 31-36 Red Cell Distribution Width 14 % 10.5-15 Platelet Count 262 10^3/uL 150-450 Mean Platelet Volume 8 um3 7.4-10.4 Abs Neutrophils 2.9 10^3/uL 1.5-7.7 Abs Lymphocytes 1.4 10^3/uL 1.0-4.8 Abs Monocytes 0.5 10^3/uL 0-0.8 Abs Eosinophils 0.2 10^3/uL 0-0.6 Abs Basophils 0.1 10^3/uL 0-0.2 Abs Nucleated RBC 0 10^3/uL Granulocyte % 56.6 % 38-83 Lymphocyte % 28.2 % 25-47 Monocyte % 10.2 % High 1-9 Eosinophil % 3.6 % 0-6 Basophil % 1.4 % 0-2 Nucleated Red Blood Cells % 0 Comp Metabolic Panel 02/18/2016 Sodium 135 mmol/L 133-145 Potassium 3.7 mmol/L 3.5-5.0 Chloride 100 mmol/L Low 101-111 Co2 Carbon Dioxide 28 mmol/L 22-32 Anion Gap 7 mmol/L 2-11 Glucose 101 mg/dL High 70-100 Blood Urea Nitrogen 10 mg/dL 6-24 Creatinine 0.78 mg/dL 0.51-0.95 BUN/Creatinine Ratio 12.8 8-20 Calcium 9.6 mg/dL 8.6-10.3 Total Protein 6.9 g/dL 6.4-8.9 Albumin 4.1 g/dL 3.2-5.2 Globulin 2.8 g/dL 2-4 Albumin/Globulin Ratio 1.5 1-3 Total Bilirubin 0.30 mg/dL 0.2-1.0 Alkaline Phosphatase 42 U/L 34-104 Alt 15 U/L 7-52 Ast 21 U/L 13-39 Egfr Non- 76.7 >60 Egfr 98.6 >60 19 Laboratory test finding 10/11/2015 Urine Culture And SEE RESULT BELOW 20 Sensitivities Ua Routine 10/11/2015 Ua Specific Higginson 1.015 Ua PH 5 Ua Color yellow Ua Appera clear Ua WBC trace Ua Protein negative Ua Glucose negative Ua Ketones negative Ua Bilirubin negative Ua Urobilinogen negative Ua Nitrite negative Ua Occult Blood positive Laboratory test finding 2015 Urine Culture And SEE RESULT BELOW 21 Sensitivities Ua Routine 2015 Ua Specific Higginson 1.010 Ua PH 5 Ua Color yellow Ua Appera clear Ua WBC neg Ua Protein neg Ua Glucose neg Ua Ketones small Ua Bilirubin neg Ua Urobilinogen neg Ua Nitrite neg Ua Occult Blood small CBC No Diff 04/23/2015 White Blood Count 6.1 10^3/uL 4.8-10.8 Red Blood Count 3.71 10^6/uL Low 4.0-5.4 Hemoglobin 12.8 g/dL 12.0-16.0 Hematocrit 38 % 35-47 Mean Corpuscular Volume 103 fL High 80-97 Mean Corpuscular Hemoglobin 34 pg High 27-31 Mean Corpuscular HGB Conc 33 g/dL 31-36 Red Cell Distribution Width 13 % 10.5-15 Platelet Count 247 10^3/uL 150-450 Mean Platelet Volume 8 um3 7.4-10.4 Comp Metabolic Panel 04/23/2015 Sodium 136 mmol/L 133-145 Potassium 4.1 mmol/L 3.5-5.0 Chloride 100 mmol/L Low 101-111 Co2 Carbon Dioxide 28 mmol/L 22-32 Anion Gap 8 mmol/L 2-11 Glucose 83 mg/dL 70-100 Blood Urea Nitrogen 12 mg/dL 6-24 Creatinine 0.78 mg/dL 0.51-0.95 BUN/Creatinine Ratio 15.4 8-20 Calcium 9.6 mg/dL 8.6-10.3 Total Protein 6.4 g/dL 6.4-8.9 Albumin 4.0 g/dL 3.2-5.2 Globulin 2.4 g/dL 2-4 Albumin/Globulin Ratio 1.7 1-3 Total Bilirubin 0.30 mg/dL 0.2-1.0 Alkaline Phosphatase 46 U/L 34-104 Alt 9 U/L 7-52 Ast 14 U/L 13-39 Egfr Non- 77.0 >60 Egfr 99.0 >60 22 Laboratory test finding 04/23/2015 Valproic Acid (Depakene) 98.0 g/mL 50-100 Hemoglobin A1c (Glyco HGB) 5.6 % Less than 6.0 23 Lamotrigine (Lamictal) 12.4 g/mL 2.5 - 15.0 24 CBC Auto Diff 02/17/2015 White Blood Count 5.4 10^3/uL 4.8-10.8 Red Blood Count 3.79 10^6/uL Low 4.0-5.4 Hemoglobin 13.1 g/dL 12.0-16.0 Hematocrit 39 % 35-47 Mean Corpuscular Volume 104 fL High 80-97 Mean Corpuscular Hemoglobin 35 pg High 27-31 Mean Corpuscular HGB Conc 33 g/dL 31-36 Red Cell Distribution Width 13 % 10.5-15 Platelet Count 266 10^3/uL 150-450 Mean Platelet Volume 8 um3 7.4-10.4 Abs Neutrophils 2.5 10^3/uL 1.5-7.7 Abs Lymphocytes 1.7 10^3/uL 1.0-4.8 Abs Monocytes 0.8 10^3/uL 0-0.8 Abs Eosinophils 0.3 10^3/uL 0-0.6 Abs Basophils 0.1 10^3/uL 0-0.2 Abs Nucleated RBC 0 10^3/uL Granulocyte % 47.3 % 38-83 Lymphocyte % 31.1 % 25-47 Monocyte % 14.4 % High 1-9 Eosinophil % 6.1 % High 0-6 Basophil % 1.1 % 0-2 Nucleated Red Blood Cells % 0.1 Ua Routine 02/17/2015 Ua Specific [place] 1.010 Ua PH 5 Ua Color yellow Ua Appera clear Ua WBC negative Ua Protein negative Ua Glucose negative Ua Ketones small Ua Bilirubin small Ua Urobilinogen normal Ua Nitrite negative Ua Occult Blood NHT Laboratory test finding 02/17/2015 Cytology Non-[employer] SEE RESULT BELOW 25 Ua And Culture 02/12/2015 Urine Culture And SEE RESULT BELOW 26 Sensitivity Sensitivities Urinalysis Profile 02/12/2015 Urine Color Yellow Urine Appearance Clear Urine Specific [place] 1.008 Low 1.010-1.030 Urine pH 5.0 5-9 Urine Urobilinogen Negative Negative Urine Ketones Negative Negative Urine Protein Negative Negative Urine Leukocytes Negative Negative Urine Blood Negative Negative Urine Nitrite Negative Negative Urine Bilirubin Negative Negative Urine Glucose Negative Negative Ua Routine 02/12/2015 Ua Specific Higg[place] 1.005 Ua PH 5 Ua Color yellow Ua Appera clear Ua WBC negative Ua Protein negative Ua Glucose negative Ua Ketones trace Ua Bilirubin small Ua Urobilinogen normal Ua Nitrite negative Ua Occult Blood negative CBC Auto Diff 01/29/2015 White Blood Count 6.5 10^3/uL 4.8-10.8 Red Blood Count 3.69 10^6/uL Low 4.0-5.4 Hemoglobin 12.7 g/dL 12.0-16.0 Hematocrit 38 % 35-47 Mean Corpuscular Volume 104 fL High 80-97 Mean Corpuscular Hemoglobin 35 pg High 27-31 Mean Corpuscular HGB Conc 33 g/dL 31-36 Red Cell Distribution Width 13 % 10.5-15 Platelet Count 306 10^3/uL 150-450 Mean Platelet Volume 7 um3 Low 7.4-10.4 Abs Neutrophils 4.1 10^3/uL 1.5-7.7 Abs Lymphocytes 1.3 10^3/uL 1.0-4.8 Abs Monocytes 0.6 10^3/uL 0-0.8 Abs Eosinophils 0.4 10^3/uL 0-0.6 Abs Basophils 0.1 10^3/uL 0-0.2 Abs Nucleated RBC 0 10^3/uL Granulocyte % 63.4 % 38-83 Lymphocyte % 20.5 % Low 25-47 Monocyte % 9.4 % High 1-9 Eosinophil % 5.5 % 0-6 Basophil % 1.2 % 0-2 Nucleated Red Blood Cells % 0 Comp Metabolic Panel 01/29/2015 Sodium 135 mmol/L 133-145 Potassium 4.0 mmol/L 3.5-5.0 Chloride 100 mmol/L Low 101-111 Co2 Carbon Dioxide 29 mmol/L 22-32 Anion Gap 6 mmol/L 2-11 Glucose 102 mg/dL High 70-100 Blood Urea Nitrogen 9 mg/dL 6-24 Creatinine 0.78 mg/dL 0.51-0.95 BUN/Creatinine Ratio 11.5 8-20 Calcium 9.4 mg/dL 8.6-10.3 Total Protein 6.9 g/dL 6.4-8.9 Albumin 4.1 g/dL 3.2-5.2 Globulin 2.8 g/dL 2-4 Albumin/Globulin Ratio 1.5 1-3 Total Bilirubin 0.30 mg/dL 0.2-1.0 Alkaline Phosphatase 40 U/L 34-104 Alt 9 U/L 7-52 Ast 16 U/L 13-39 Egfr Non- 77.0 >60 Egfr 99.0 >60 27 Laboratory test 01/29/2015 TSH (Thyroid Stim 1.30 ?IU/mL 0.34-5.60 finding Horm) Laboratory test 12/24/2014 Rapid Influenza A B SEE RESULT BELOW 28 finding Antigen Ua Routine 12/01/2014 Ua Specific Higginson 1.020 Ua PH 5 Ua Color yellow Ua Appera cloudy Ua WBC moderate Ua Protein negative Ua Glucose negative\\ Ua Ketones trace Ua Bilirubin trace Ua Urobilinogen normal Ua Nitrite negative Ua Occult Blood trace Urine Culture And Sensitivities 12/01/2014 Urine Culture (SEE NOTE) 29 Lipid Profile (Trig/Chol/HDL) 01/29/2014 Triglycerides 187 mg/dL 30 Cholesterol 206 mg/dL 31 HDL Cholesterol 60.6 mg/dL 32 LDL Cholesterol 108 mg/dL 33 Laboratory test finding 01/29/2014 TSH (Thyroid Stimulating 3.60 IU/mL 0.34-5.60 Horm) CBC With Manual Diff 01/29/2014 White Blood Count 4.9 10^3/uL 4.8-10.8 Red Blood Count 3.68 10^6/uL Low 4.0-5.4 Hemoglobin 12.8 g/dL 12.0-16.0 Hematocrit 36 % 35-47 Mean Corpuscular Volume 99 fL High 80-97 Mean Corpuscular Hemoglobin 35 pg High 27-31 Mean Corpuscular HGB Conc 35 g/dL 31-36 Red Cell Distribution Width 13 % 10.5-15 Platelet Count 267 10^3/uL 150-450 Mean Platelet Volume 7 um3 Low 7.4-10.4 Abs Neutrophils 2.9 10^3/uL 1.5-7.7 Abs Lymphocytes 1.2 10^3/uL 1.0-4.8 Abs Monocytes 0.6 10^3/uL 0-0.8 Abs Eosinophils 0.2 10^3/uL 0-0.6 Abs Basophils 0.1 10^3/uL 0-0.2 Abs Nucleated RBC 0 10^3/uL Neutrophil % 68 % 38-83 Lymphocytes % 22 % Low 25-47 Monocytes % 10 % 0-13 RBC Morphology Normal Normal Comp Metabolic Panel 01/29/2014 Sodium 124 mmol/L Low 133-145 Potassium 3.9 mmol/L 3.7-5.6 Chloride 90 mmol/L Low 101-111 Co2 Carbon Dioxide 26 mmol/L 22-32 Anion Gap 8 mmol/L 2-11 Glucose 82 mg/dL 70-100 Blood Urea Nitrogen 6 mg/dL 6-24 Creatinine 0.78 mg/dL 0.51-0.95 BUN/Creatinine Ratio 7.7 Low 8-20 Calcium 9.2 mg/dL 8.6-10.3 Total Protein 6.4 g/dL 6.4-8.9 Albumin 3.9 g/dL 3.2-5.2 Globulin 2.5 g/dL 2-4 Albumin/Globulin Ratio 1.6 1-3 Total Bilirubin 0.50 mg/dL 0.2-1.0 Alkaline Phosphatase 42 U/L 34-104 Alt 16 U/L 7-52 Ast 27 U/L 13-39 Egfr Non- 77.3 >60 Egfr 99.4 >60 34 CBC Auto Diff 06/12/2013 White Blood Count 5.8 10^3/uL 4.8-10.8 Red Blood Count 3.76 10^6/uL Low 4.0-5.4 Hemoglobin 12.7 g/dL 12.0-16.0 Hematocrit 38 % 35-47 Mean Corpuscular Volume 102 fL High 80-97 Mean Corpuscular Hemoglobin 34 pg High 27-31 Mean Corpuscular HGB Conc 33 g/dL 31-36 Red Cell Distribution Width 13 % 10.5-15 Platelet Count 278 10^3/uL 150-450 Mean Platelet Volume 9 um3 7.4-10.4 Abs Neutrophils 3.2 10^3/uL 1.5-7.7 Abs Lymphocytes 1.7 10^3/uL 1.0-4.8 Abs Monocytes 0.6 10^3/uL 0-0.8 Abs Eosinophils 0.2 10^3/uL 0-0.6 Abs Basophils 0.1 10^3/uL 0-0.2 Abs Nucleated RBC 0.01 10^3/uL Granulocyte % 55.2 % 38-83 Lymphocyte % 29.4 % 25-47 Monocyte % 10.8 % High 1-9 Eosinophil % 3.4 % 0-6 Basophil % 1.2 % 0-2 Nucleated Red Blood Cells % 0.1 Comp Metabolic Panel 06/12/2013 Sodium 133 mmol/L 133-145 Potassium 4.3 mmol/L 3.5-5.0 Chloride 97 mmol/L Low 101-111 Co2 Carbon Dioxide 26.0 mmol/L 22-32 Anion Gap 10.0 mmol/L 2-11 Glucose 89 mg/dL 70-100 Blood Urea Nitrogen 9 mg/dL 6-24 Creatinine 0.80 mg/dL 0.50-1.40 BUN/Creatinine Ratio 11.3 8-20 Calcium 9.3 mg/dL 8.1-9.9 Total Protein 6.4 g/dL 6.2-8.1 Albumin 3.7 g/dL 3.6-5.4 Globulin 2.7 g/dL 2-4 Albumin/Globulin Ratio 1.4 1-3 Total Bilirubin 0.4 mg/dL 0.4-1.5 Alkaline Phosphatase 58 U/L 30-110 Alt 22 U/L 14-54 Ast 23 U/L 12-42 Egfr Non- 75.3 >60 Egfr 96.9 >60 35 Laboratory test finding 08/19/2012 TSH (Thyroid Stimulating 2.14 miu/mL 0.34-5.60 Horm) Free T4 0.96 ng/mL 0.61-1.24 Throat-Beta Strept 07/12/2012 Throat Beta Strep (SEE NOTE) 36 Culture Lipid Profile 06/12/2012 Triglycerides 231 mg/dL High 40-200 (Trig/Chol/HDL) Cholesterol 202 mg/dL High Less than 200 37 HDL Cholesterol 75 mg/dL High 40-60 38 Cholesterol/HDL Ratio 2.7 AVERAGE 1-4.44 LDL Cholesterol 80.8 mg/dL Less Than 100 39 Comp Metabolic Panel 06/12/2012 Sodium 137 mmol/L 133-145 Potassium 4.4 mmol/L 3.5-5.0 Chloride 101 mmol/L 101-111 Co2 Carbon Dioxide 29.0 mmol/L 22-32 Anion Gap 7.0 mmol/L 2-11 Glucose 91 mg/dL 70-100 Blood Urea Nitrogen 10 mg/dL 6-24 Creatinine 0.80 mg/dL 0.50-1.40 BUN/Creatinine Ratio 12.5 8-20 Calcium 9.5 mg/dL 8.1-9.9 Total Protein 6.5 GM/DL 6.2-8.1 Albumin 3.6 GM/DL 3.6-5.4 Globulin 2.9 GM/DL 2-4 Albumin/Globulin Ratio 1.2 1-3 Total Bilirubin 0.4 mg/dL 0.1-1.0 40 Alkaline Phosphatase 54 U/L 30-110 Alt 15 U/L 14-54 Ast 19 U/L 12-42 Egfr Non- 75.6 >60 Egfr 97.3 >60 41 Laboratory test 06/12/2012 TSH (Thyroid 8.28 MIU/ML High 0.34-5.60 finding Stimulating Horm) Free T4 0.68 NG/ML 0.61-1.24 Vitamin D 1,25 And 06/12/2012 Vitamin D 1,25-Dihydroxy 22 pg/mL 18-78 42 Vitamin D,2 Vitamin D, 25 Hydroxy 06/12/2012 25-Hydroxy Vitamin D2 <4.0 ng/mL 25-Hydroxy Vitamin D3 49 ng/mL 25-Hydroxy Vitamin D Total 49 ng/mL 43 Ua Routine 06/05/2012 Ua Specific Higginson 1.010 Ua PH 6 Ua Color yellow Ua Appera clear Ua WBC neg Ua Protein neg Ua Glucose neg Ua Ketones neg Ua Bilirubin neg Ua Urobilinogen neg Ua Nitrite neg Ua Occult Blood non hemo trace Surgical Pathology 03/21/2012 Surgical <SEE 44 Pathology NOTE> Laboratory test 12/22/2011 Surgical <SEE 45 finding Pathology NOTE> Comp Metabolic 12/22/2011 Sodium 130 mmol/L Low 135-145 Panel Potassium 4.6 mmol/L 3.5-5.0 Chloride 94 mmol/L Low 101-111 Co2 (Carbon Dioxide) 27.0 mmol/L 22-32 Anion Gap 9.0 mmol/L 2-11 46 Glucose 107 mg/dL High 70-100 BUN 4 mg/dL Low 6-24 Creatinine 0.9 mg/dL 0.50-1.40 One Over Creatinine 1.11 BUN/Creatinine Ratio 4.4 Low 8-20 Calcium 9.7 mg/dL 8.1-9.9 Total Protein 6.6 GM/DL 6.2-8.1 Albumin 3.9 GM/DL 3.6-5.4 Globulin 2.7 GM/DL 2-4 Albumin/Globulin Ratio 1.4 1-3 Bilirubin Total 0.4 mg/dL 0.4-1.5 47 Alkaline Phosphatase 52 U/L 30-110 Alt (SGPT) 25 U/L 14-54 Ast (Sgot) 28 U/L 12-42 eGFR Non- 66.0 > 60 eGFR 84.9 > 60 48 Laboratory test finding 12/22/2011 C Reactive Protein 0.7 mg/dL High Less Than 0.5 Protime 12/17/2011 Inr 0.81 Low 0.88-1.13 49 Protime 9.6 SEC Low 10.3-13.5 50 Laboratory test finding 12/17/2011 PTT (Aptt) 28.0 SEC 25.1-38.5 BNP Evaluatr 50.0 pg/mL 0-100 Blood Culture 12/17/2011 M <SEE 51 NOTE> CBC Auto Diff 12/17/2011 White Blood Count 5.9 CUMM 4.8-10.8 Red Cell Count 3.58 CUMM Low 4.2-5.4 Hemoglobin 12.6 g/dL 12.0-16.0 Hematocrit 36 % 35-47 Mean Corpuscular Volume 102 um3 High 79-97 Mean Corpuscular Hemoglob 35 pg High 27-31 Mean Corpuscular HGB Cone 35 g/dL 32-36 Redcell Distribution WDTH 13 % 10.5-15 Platelet Count 271 CUMM 150-450 Mean Platelet Volume 7.5 um3 7.4-10.4 Gran % 54.6 % 38-83 Lymph % 23.9 % Low 25-47 Mononuclear % 13.4 % High 1-9 Eosinophil % 6.9 % High 0-6 Basophil % 1.2 % 0-2 Abs Lymphs 1.4 1.0-4.8 Abs Mononuclear 0.8 0-0.8 Absolute Neutrophil Count 3.2 1.5-7.7 Abs Eosinophils 0.4 0-0.6 Abs Basophils 0.1 0-0.2 Comp Metabolic Panel 12/17/2011 Sodium 131 mmol/L Low 135-145 Potassium 3.8 mmol/L 3.5-5.0 Chloride 96 mmol/L Low 101-111 Co2 (Carbon Dioxide) 26.0 mmol/L 22-32 Anion Gap 9.0 mmol/L 2-11 52 Glucose 96 mg/dL 70-100 BUN 7 mg/dL 6-24 Creatinine 0.7 mg/dL 0.50-1.40 One Over Creatinine 1.42 BUN/Creatinine Ratio 10.0 8-20 Calcium 9.5 mg/dL 8.1-9.9 Total Protein 7.0 GM/DL 6.2-8.1 Albumin 3.7 GM/DL 3.6-5.4 Globulin 3.3 GM/DL 2-4 Albumin/Globulin Ratio 1.1 1-3 Bilirubin Total 0.7 mg/dL 0.4-1.5 53 Alkaline Phosphatase 44 U/L 30-110 Alt (SGPT) 16 U/L 14-54 Ast (Sgot) 22 U/L 12-42 eGFR Non- 88.2 > 60 eGFR 113.5 > 60 54 Laboratory test finding 10/30/2011 TSH 3.95 MIU/ML 0.34-5.60 Thyroxine Free 0.80 ng/dL 0.61-1.24 Laboratory test finding 09/15/2011 TSH 6.53 MIU/ML High 0.34-5.60 Thyroxine Free 0.71 ng/dL 0.61-1.24 Laboratory test finding 08/01/2011 Thyroxine Free 0.74 ng/dL 0.61-1.24 TSH 6.88 MIU/ML High 0.34-5.60 Laboratory test finding 06/02/2011 TSH 12.98 MIU/ML High 0.34-5.60 Comp Metabolic Panel 06/02/2011 Sodium 134 mmol/L Low 135-145 Potassium 4.5 mmol/L 3.5-5.0 Chloride 101 mmol/L 101-111 Co2 (Carbon Dioxide) 27.0 mmol/L 22-32 Anion Gap 6.0 mmol/L 2-11 55 Glucose 85 mg/dL 70-100 BUN 9 mg/dL 6-24 Creatinine 0.8 mg/dL 0.50-1.40 One Over Creatinine 1.25 BUN/Creatinine Ratio 11.3 8-20 Calcium 9.6 mg/dL 8.1-9.9 Total Protein 6.2 GM/DL 6.2-8.1 Albumin 3.6 GM/DL 3.6-5.4 Globulin 2.6 GM/DL 2-4 Albumin/Globulin Ratio 1.4 1-3 Bilirubin Total 0.4 mg/dL 0.4-1.5 56 Alkaline Phosphatase 43 U/L 30-110 Alt (SGPT) 13 U/L Low 14-54 Ast (Sgot) 20 U/L 12-42 eGFR Non- 75.9 > 60 eGFR 97.6 > 60 57 Lipid Profile (Trig/Chol/HDL) 06/02/2011 Triglyceride 125 mg/dL 40-200 Cholesterol 186 mg/dL Less Than 200 58 High Density Lipoprotein 87 mg/dL High 40-60 59 Low Density Lipoprotein 74 mg/dL Less Than 100 60 Cholesterol/HDL Ratio 2.14 AVERAGE 1-4.44 Laboratory test finding 05/24/2011 Cytology <SEE 61 NOTE> Comp Metabolic Panel 05/19/2011 Sodium 135 mmol/L 135-145 Potassium 4.9 mmol/L 3.5-5.0 Chloride 101 mmol/L 101-111 Co2 (Carbon Dioxide) 28.0 mmol/L 22-32 Anion Gap 6.0 mmol/L 2-11 62 Glucose 96 mg/dL 70-100 BUN 8 mg/dL 6-24 Creatinine 0.8 mg/dL 0.50-1.40 One Over Creatinine 1.25 BUN/Creatinine Ratio 10.0 8-20 Calcium 9.3 mg/dL 8.1-9.9 Total Protein 6.3 GM/DL 6.2-8.1 Albumin 3.4 GM/DL Low 3.6-5.4 Globulin 2.9 GM/DL 2-4 Albumin/Globulin Ratio 1.2 1-3 Bilirubin Total 0.3 mg/dL Low 0.4-1.5 63 Alkaline Phosphatase 43 U/L 30-110 Alt (SGPT) 11 U/L Low 14-54 Ast (Sgot) 19 U/L 12-42 eGFR Non- 75.9 > 60 eGFR 97.6 > 60 64 Laboratory test finding 05/05/2011 Osmolality 284 MOSMO 281-297 Basic Metabolic Panel 05/05/2011 Sodium 128 mmol/L Low 135-145 Potassium 4.1 mmol/L 3.5-5.0 Chloride 89 mmol/L Low 101-111 Co2 (Carbon Dioxide) 31.0 mmol/L 22-32 Anion Gap 8.0 mmol/L 2-11 65 Glucose 94 mg/dL 70-100 BUN 9 mg/dL 6-24 Creatinine 0.8 mg/dL 0.50-1.40 One Over Creatinine 1.25 BUN/Creatinine Ratio 11.3 8-20 Calcium 10.0 mg/dL High 8.1-9.9 eGFR Non- 75.9 > 60 eGFR 97.6 > 60 66 Basic Metabolic Panel 04/20/2011 Sodium 131 mmol/L Low 135-145 Potassium 3.9 mmol/L 3.5-5.0 Chloride 93 mmol/L Low 101-111 Co2 (Carbon Dioxide) 32.0 mmol/L 22-32 Anion Gap 6.0 mmol/L 2-11 67 Glucose 109 mg/dL High 70-100 BUN 12 mg/dL 6-24 Creatinine 1.0 mg/dL 0.50-1.40 One Over Creatinine 1.00 BUN/Creatinine Ratio 12.0 8-20 Calcium 8.9 mg/dL 8.1-9.9 eGFR Non- 58.7 > 60 eGFR 75.5 > 60 68 Comp Metabolic Panel 04/06/2011 Sodium 131 mmol/L Low 135-145 Potassium 4.7 mmol/L 3.5-5.0 Chloride 95 mmol/L Low 101-111 Co2 (Carbon Dioxide) 29.0 mmol/L 22-32 Anion Gap 7.0 mmol/L 2-11 69 Glucose 111 mg/dL High 70-100 BUN 5 mg/dL Low 6-24 Creatinine 0.9 mg/dL 0.50-1.40 One Over Creatinine 1.11 BUN/Creatinine Ratio 5.6 Low 8-20 Calcium 9.6 mg/dL 8.1-9.9 Total Protein 6.4 GM/DL 6.2-8.1 Albumin 3.7 GM/DL 3.6-5.4 Globulin 2.7 GM/DL 2-4 Albumin/Globulin Ratio 1.4 1-3 Bilirubin Total 0.5 mg/dL 0.4-1.5 70 Alkaline Phosphatase 43 U/L 30-110 Alt (SGPT) 14 U/L 14-54 Ast (Sgot) 24 U/L 12-42 eGFR Non- 66.3 > 60 eGFR 85.2 > 60 71 1 [id number] 2 SEE RESULT BELOW Name: ELIZABETHAUTUMN J : [address]: Marilee Bauer MD Acct: [id number] Unit: [id number] AGE: 56 Location: [facility] Re04/06/17 SEX: F Status: DEP REF SPEC: [id number] CAROL: 04/06/17- SUBM DR: Marilee Bauer MD REQ: [id number] RECD: 04/06/171148 STATUS: ANJEL MOODY DR: Sangita Pierson [facility] _ ORDERED: LEVEL 4 COMMENTS: [id number] FINAL DIAGNOSIS Colon, cecum, biopsy: -- Tubular adenoma. -- No high grade dysplasia or malignancy. CLINICAL HISTORY Screening/surveillance for malignancy in asymptomatic patient with personal or family history of anal cancer. POST-OPERATIVE DIAGNOSIS Colonoscopy; cecal polyps removed with cold snare, otherwise normal. Conclusions/Plan: Await pathology. GROSS DESCRIPTION The specimen is received in formalin labeled, Cecal Polyp, and consists of a 0.7 by up to 0.3 x 0.2 cm mar irregular to polypoid soft tissue fragment which is submitted entirely in one cassette. Signed (signature on file) Prachi Kevin MD 12/20 1236 END OF REPORT * ML=Testing performed at Main Lab DEPARTMENT OF PATHOLOGY, [address] [place] [address] Lenard Woodard M.D. Director [facility] # [id number] 3 Because ethnic data is not always readily available, this report includes an eGFR for both -Americans and non- Americans. The National Kidney Disease Education Program (NKDEP) does not endorse the use of the MDRD equation for patients that are not between the ages of 18 and 70, are , have extremes of body size, muscle mass, or nutritional status, or are non- or non-. According to the National Kidney Foundation, irrespective of diagnosis, the stage of the disease is based on the level of kidney function: Stage Description GFR(mL/min/1.73 m(2)) 1 Kidney damage with normal or decreased GFR 90 2 Kidney damage with mild decrease in GFR 60-89 3 Moderate decrease in GFR 30-59 4 Severe decrease in GFR 15-29 5 Kidney failure <15 (or dialysis) 4 Desirable <150 Borderline high 150-199 High 200-499 Very High >500 5 Desirable <200 Borderline high 200-239 High >239 6 Low <40 Desirable: 40-60 High: >60 7 Desirable: <100 mg/dL Near Optimal: 100-129 mg/dL Borderline High: 130-159 mg/dL High: 160-189 mg/dL Very High: >189 mg/dL 8 Because ethnic data is not always readily available, this report includes an eGFR for both -Americans and non- Americans. The National Kidney Disease Education Program (NKDEP) does not endorse the use of the MDRD equation for patients that are not between the ages of 18 and 70, are , have extremes of body size, muscle mass, or nutritional status, or are non- or non-. According to the National Kidney Foundation, irrespective of diagnosis, the stage of the disease is based on the level of kidney function: Stage Description GFR(mL/min/1.73 m(2)) 1 Kidney damage with normal or decreased GFR 90 2 Kidney damage with mild decrease in GFR 60-89 3 Moderate decrease in GFR 30-59 4 Severe decrease in GFR 15-29 5 Kidney failure <15 (or dialysis) 9 [id number] 10 SEE RESULT BELOW Name: AUTUMN JOHNSON Hayder : [address]: Carmen Carrillo Acct: [id number] Unit: [id number] AGE: 56 Location: [facility] Re02/10/17 SEX: F Status: DEP ER SPEC: [id number] CAROL: 02/10/[address]: Carmen Roberson DO REQ: [id number] RECD: 02/10/17-9102 STATUS: SCHUYLER MOODY DR: Sangita Pierson [facility] _ [facility]: ORDERED: Urine Culture COMMENTS: [id number] Procedure Result Reported Site Urine Culture Final 02/12/17- 0759 ML Organism 1 ESCHERICHIA COLI Sullivan Count 75-100,000 (Many) CFU/ML 1. ESCHERICHIA COLI [facility].I.C. RX --------- ------ Ampicillin >=32 R Cefazolin <=4 S Cefepime <=1 S Ceftriaxone <=1 S Ciprofloxacin <=0.25 S Gentamicin >=16 R Levofloxacin <=0.12 S Meropenem <=0.25 S Nitrofurantoin 32 S Tetracycline <=1 S Pipercillin/Tazobactam <=4 S Trimethoprim/Sulfamethoxazole >=320 R Amoxicillin/Clavulanic Acid 16 I Aztreonam <=1 S Contact the Microbiology Department for any additional antibiotic reporting. * ML - MAIN LAB ([facility]) . END OF REPORT * ML=Testing performed at Main Lab DEPARTMENT OF PATHOLOGY, [address] [place] [address] Lenard Woodard M.D. Director [facility] # [id number] 11 FASTING 10 HOUR 12 Desirable <150 Borderline high 150-199 High 200-499 Very High >500 13 Desirable <200 Borderline high 200-239 High >239 14 Low <40 Desirable: 40-60 High: >60 15 Desirable: <100 mg/dL Near Optimal: 100-129 mg/dL Borderline High: 130-159 mg/dL High: 160-189 mg/dL Very High: >189 mg/dL 16 FASTING 10 HOUR 17 [id number] 18 SEE RESULT BELOW Name: AUTUMN JOHNSON Hayder : [address]: Wes Neff MD Acct: [id number] Unit: [id number] AGE: 55 Location: [facility] Re04/20/16 SEX: F Status: REG REF SPEC: [id number] CAROL: 04/20/16-[address] [facility] DR: Wes Neff MD REQ: [id number] RECD: 04/20/16-1599 STATUS: ANJEL MOODY DR: Sangita Pierson [facility] _ ORDERED: LEVEL IV COMMENTS: [id number] FINAL DIAGNOSIS Stomach, polyps, biopsies: -- Hyperplastic fundic gland polyps. CLINICAL HISTORY Dysphagia, history of Schatzki's ring POST-OPERATIVE DIAGNOSIS Esophagus - Schatzki's ring, dilated with 18 mm balloon. No erosions/May' s; stomach - multiple small polyps removed; duodenum - normal bulb to third portion. Conclusions/Plan: Schatzki's ring dilated, gastric polyps biopsied GROSS DESCRIPTION The specimen is received in formalin labeled, Biopsy Gastric Polyps, and consists of two mar-brown irregular to polypoid soft tissue fragments averaging 0.4 x 0.4 x 0.2 cm, which are entirely submitted in one cassette. Signed (signature on file) Lenard Woodard MD 1219 END OF REPORT * ML=Testing performed at Main Lab DEPARTMENT OF PATHOLOGY, [address] [place] [address] Lenard Woodard M.D. Director [facility] # [id number] 19 Because ethnic data is not always readily available, this report includes an eGFR for both -Americans and non- Americans. The National Kidney Disease Education Program (NKDEP) does not endorse the use of the MDRD equation for patients that are not between the ages of 18 and 70, are , have extremes of body size, muscle mass, or nutritional status, or are non- or non-. According to the National Kidney Foundation, irrespective of diagnosis, the stage of the disease is based on the level of kidney function: Stage Description GFR(mL/min/1.73 m(2)) 1 Kidney damage with normal or decreased GFR 90 2 Kidney damage with mild decrease in GFR 60-89 3 Moderate decrease in GFR 30-59 4 Severe decrease in GFR 15-29 5 Kidney failure <15 (or dialysis) 20 SEE RESULT BELOW Name: AUTUMN JOHNSON Hayder : [address]: Sangita Pierson NP Acct: [id number] Unit: [id number] AGE: 55 Location: [facility] Re10/11/15 SEX: F Status: REG REF SPEC: [id number] CAROL: 10/11/15-[address]: Sangita Pierson NP REQ: [id number] RECD: 10/11/15 STATUS: COMP _ SOURCE: URINE SPDESC: ORDERED: Urine Culture Procedure Result Reported Site Urine Culture Final 10/13/15- 0858 ML Organism 1 NORMAL VENU Sullivan Count 1-10,000 (Few) CFU/ML * ML - MAIN LAB ([facility]) . END OF REPORT * ML=Testing performed at Main Lab DEPARTMENT OF PATHOLOGY, [address] [place] [address] Lenard Woodard M.D. Director [facility] # [id number] 21 SEE RESULT BELOW Name: AUTUMN JOHNSON : [address]: Sangita Pierson NP Acct: [id number] Unit: [id number] AGE: 55 Location: [facility] Re06/22/15 SEX: F Status: REG REF SPEC: [id number] CAROL: 06/22/15-[address]: Sangita Pierson NP REQ: [id number] RECD: 06/22/15 STATUS: COMP _ SOURCE: URINE SPDESC: ORDERED: Urine Culture Procedure Result Verified Site Urine Culture Final 06/24/15- 1031 ML No Growth Day 2 (<1,000 CFU/mL) * ML - MAIN LAB ([facility]) . END OF REPORT * ML=Testing performed at Main Lab DEPARTMENT OF PATHOLOGY, [address] [place] [address] Lenard Woodard M.D. Director [facility] # [id number] 22 Because ethnic data is not always readily available, this report includes an eGFR for both -Americans and non- Americans. The National Kidney Disease Education Program (NKDEP) does not endorse the use of the MDRD equation for patients that are not between the ages of 18 and 70, are , have extremes of body size, muscle mass, or nutritional status, or are non- or non-. According to the National Kidney Foundation, irrespective of diagnosis, the stage of the disease is based on the level of kidney function: Stage Description GFR(mL/min/1.73 m(2)) 1 Kidney damage with normal or decreased GFR 90 2 Kidney damage with mild decrease in GFR 60-89 3 Moderate decrease in GFR 30-59 4 Severe decrease in GFR 15-29 5 Kidney failure <15 (or dialysis) 23 Therapeutic target for the treatment of diabetes Mellitus patients is <7% HBA1C, and in selective patients <6.0%.Please refer to [place] [employer] Diabetic care guidelines for further information. 24 Test Performed by: [address] [address] [employer]rapper: Avery Kasper II, M.D., Ph.D. 25 SEE RESULT BELOW Name: AUTUMN JOHNSON Hayder : [address]: Sangita Pierson NP Acct: [id number] Unit: [id number] AGE: 54 Location: [facility] Re02/17/15 SEX: F Status: REG REF SPEC: [id number] CAROL: 02/17/15-[address] [facility] [address]: Sangita Pierson NP REQ: [id number] RECD: 02/17/15 STATUS: SOUT _ ORDERED: THIN PREP NON G FINAL DIAGNOSIS Urine, voided: Negative for malignant cells. URINE VOID CLINICAL HISTORY Hematuria GROSS DESCRIPTION 7.5 mls of clear yellow voided urine. Signed (signature on file) Prachi Kevin MD 0949 END OF REPORT * ML=Testing performed at Main Lab DEPARTMENT OF PATHOLOGY, [address] [place] [address] Lenard Woodard M.D. Director [facility] # [id number] 26 SEE RESULT BELOW Name: AUTUMN JOHNSON : [address]: Sangita Pierson NP Acct: [id number] Unit: [id number] AGE: 54 Location: [facility] Re02/12/15 SEX: F Status: REG REF SPEC: [id number] CAROL: 02/12/151120 [facility] DR: Sangita Pierson NP REQ: [id number] RECD: 02/12/15 STATUS: COMP _ SOURCE: URINE SPDESC: ORDERED: Urine Culture Procedure Result Verified Site Urine Culture Final 02/14/15- 08 ML No Growth Day 2 (<1,000 CFU/mL) * ML - MAIN LAB ([facility]) . END OF REPORT * ML=Testing performed at Main Lab DEPARTMENT OF PATHOLOGY, [address] [place] [address] Lenard Woodard M.D. Director [facility] # [id number] 27 Because ethnic data is not always readily available, this report includes an eGFR for both -Americans and non- Americans. The National Kidney Disease Education Program (NKDEP) does not endorse the use of the MDRD equation for patients that are not between the ages of 18 and 70, are , have extremes of body size, muscle mass, or nutritional status, or are non- or non-. According to the National Kidney Foundation, irrespective of diagnosis, the stage of the disease is based on the level of kidney function: Stage Description GFR(mL/min/1.73 m(2)) 1 Kidney damage with normal or decreased GFR 90 2 Kidney damage with mild decrease in GFR 60-89 3 Moderate decrease in GFR 30-59 4 Severe decrease in GFR 15-29 5 Kidney failure <15 (or dialysis) 28 SEE RESULT BELOW Name: AUTUMN JOHNSON : [address]: Salbador Horton NP Acct: [id number] Unit: [id number] AGE: 54 Location: [facility] Re12/24/14 SEX: F Status: REG REF SPEC: [id number] CAROL: 12/24/14-[address]: Salbador Horton NP REQ: [id number] RECD: 12/24/14-1800 STATUS: COMP _ SOURCE: [facility]: ORDERED: Rapid Flu A B Procedure Result Verified Site Rapid Influenza A B Antigen Final 12/24/14- 2100 ML Organism 1 Negative Influenza A B Antigen testing by enzyme immunoassay. Cell culture testing can be performed to confirm negative test results and to assist in detecting other viruses that can produce similar clinical symptoms. Please notify Microbiology Lab if further testing is desired. * ML - MAIN LAB ([facility]) . END OF REPORT * ML=Testing performed at Main Lab DEPARTMENT OF PATHOLOGY, [facility] [address] [place], [place] [address] Lenard Woodard M.D. Director [facility] # [id number] 29 RUN DATE: 12/03/14 [facility] LIVE PAGE 1 RUN TIME: 3190 [facility] Fetch MD [place], [place] [address] Specimen Inquiry Name: AUTUMN JOHNSON : [address]: Sangita Pierson NP Acct: [id number] Unit: [id number] AGE: 54 Location: [facility] Re12/01/14 SEX: F Status: REG REF SPEC: [id number] CAROL: 12/01/14-[address]: Sangita Pierson NP REQ: [id number] RECD: 12/01/14 STATUS: COMP _ SOURCE: URINE SPDESC: ORDERED: Urine Culture QUERIES: Provider Requisition # [id number] Procedure Result Verified Site Urine Culture Final 12/03/14- 1156 ML No Growth Day 2 (<1,000 CFU/mL) * ML - MAIN LAB ([facility]) . END OF REPORT * ML=Testing performed at Main Lab DEPARTMENT OF PATHOLOGY, [address] [place] [address] Lenard Woodard M.D. Director [facility] # [id number] 30 Desirable <150 Borderline high 150-199 High 200-499 Very High >500 31 Desirable <200 Borderline high 200-239 High >239 32 Low <40 Desirable: 40-60 High: >60 33 Desirable <100 Near Optimal 100-129 Borderline high 130-159 High 160-189 Very High >189 34 Because ethnic data is not always readily available, this report includes an eGFR for both -Americans and non- Americans. The National Kidney Disease Education Program (NKDEP) does not endorse the use of the MDRD equation for patients that are not between the ages of 18 and 70, are , have extremes of body size, muscle mass, or nutritional status, or are non- or non-. According to the National Kidney Foundation, irrespective of diagnosis, the stage of the disease is based on the level of kidney function: Stage Description GFR(mL/min/1.73 m(2)) 1 Kidney damage with normal or decreased GFR 90 2 Kidney damage with mild decrease in GFR 60-89 3 Moderate decrease in GFR 30-59 4 Severe decrease in GFR 15-29 5 Kidney failure <15 (or dialysis) 35 Because ethnic data is not always readily available, this report includes an eGFR for both -Americans and non- Americans. The National Kidney Disease Education Program (NKDEP) does not endorse the use of the MDRD equation for patients that are not between the ages of 18 and 70, are , have extremes of body size, muscle mass, or nutritional status, or are non- or non-. According to the National Kidney Foundation, irrespective of diagnosis, the stage of the disease is based on the level of kidney function: Stage Description GFR(mL/min/1.73 m(2)) 1 Kidney damage with normal or decreased GFR 90 2 Kidney damage with mild decrease in GFR 60-89 3 Moderate decrease in GFR 30-59 4 Severe decrease in GFR 15-29 5 Kidney failure <15 (or dialysis) 36 RUN DATE: 07/14/12 [facility] LIVE PAGE 1 RUN TIME: 1006 [address] [place], [place] [address] Specimen Inquiry Name: AUTUMN JOHNSON : [address]: Juventino Slade DO Acct: [id number] Unit: [id number] AGE: 52 Location: [facility] Re07/12/12 SEX: F Status: DEP ER SPEC: [id number] CAROL: 07/12/12-7[address] [facility] [address]: Cayla Breen PA REQ: [id number] RECD: 07/12/125623 STATUS: [facility]U[place] [place] DR: Sangita Pierson DO, Martin K. _ SOURCE: THROAT SPDESC: ORDERED: Throat Beta Str Procedure Result Verified Site Throat Beta Strep Culture Final 07/14/12- 1001 ML Negative For Group A Beta Streptococcus END OF REPORT * ML=Testing performed at Main Lab DEPARTMENT OF PATHOLOGY, [address] [place] [address] Lenard Woodard M.D. Director [facility] Permit #[id number] Desirable: Less than 200 MG/DL Borderline-High Risk: 200-239 MG/DL High-Risk: 240 MG/DL and over 38 HDL Interpretation: Undesirable: High Risk: Less than 40 MG/DL Desirable: Low Risk: Greater than 60 MG/DL 39 LDL Interpretation: Low Risk Optimal Level: LDL Less than 100 MG/DL Near or Above Optimal: LDL 100-129 MG/DL Borderline High Risk: LDL 130-159 MG/DL High Risk: LDL 160-189 MG/DL Very High Risk: LDL Greater than 189 MG/DL 40 A metabolite of Naproxen, O-desmethylnaproxen, has been shown to interfere with the [place] method for measuring total bilirubin. Samples from patients who have taken Naproxen have shown spurious elevation in total bilirubin levels. 41 Because ethnic data is not always readily available, this report includes an eGFR for both -Americans and non- Americans. The National Kidney Disease Education Program (NKDEP) does not endorse the use of the MDRD equation for patients that are not between the ages of 18 and 70, are , have extremes of body size, muscle mass, or nutritional status, or are non- or non-. According to the National Kidney Foundation, irrespective of diagnosis, the stage of the disease is based on the level of kidney function: Stage Description GFR(mL/min/1.73 m(2)) 1 Kidney damage with normal or decreased GFR 90 2 Kidney damage with mild decrease in GFR 60-89 3 Moderate decrease in GFR 30-59 4 Severe decrease in GFR 15-29 5 Kidney failure <15 (or dialysis) 42 Test Performed by: [place] [address] Candle Wrapper: Renan Swan III, M.D. R 43 -- REFERENCE VALUE -- 25-HYDROXY D TOTAL (D2+D3) Optimum levels in the normal population are 25-80 Test Performed by: [place] [address] Candle Wrapper: Renan Swan III, M.D. R 44 ---- RUN DATE: 03/22/12 [facility] NMI LIVE PAGE 1 RUN TIME: 1330 Specimen Inquiry RUN USER: INTERFACE -- Name: AUTUMN JOHNSON [facility]#: [id number] Status: REG REF Re03/21/12 Age/Sex: 51/F Unit#: [id number] Location: [address] [place] [address]. : 60 -- Specimen: [id number] SOUT Spec Date:03/21/12 Dr: Wes herbert MD Spec Type: SURGICAL P Received:03/21/12-1242 Copies to: Sangita Pierson [facility] SPECIMEN 1) HEPATIC FLEXURE BIOPSY 2) DESCENDING COLON BIOPSY HISTORY POST-OP DIAGNOSIS: Colonoscopy into cecum. Two small polyps removed. CLINICAL INFORMATION: Rectal bleeding. History of anal carcinoma. GROSS DESCRIPTION 1) The specimen is received in formalin labelled Autumn Johnson, Hepatic Flexure Biopsy, and consists of one fragment of pink tissue measuring 0.2 x 0.2 x 0.2 cm. Submitted entirely, one cassette labelled 1. 2) The specimen is received in formalin labelled Autumn Johnson, Descending Colon Biopsy, and consists of two fragments of yellow two fragments of yellow tissue each measuring 0.3 x 0.2 x 0.2 cm. Submitted entirely, one cassette labelled 2. DIAGNOSIS 1) Hepatic flexure, biopsy: A. Tubular adenoma. B. No high grade dysplasia or malignancy. 2) Descending colon, biopsy: A. Tubular adenoma. B. No high grade dysplasia or malignancy. Signed Electronically by: PJ INIGUEZ 03/22/12 6733 -- -- DEPARTMENT OF PATHOLOGY, [address] [place] [address] [facility] Permit #[id number] Mickie Topete M.D. Assistant Dir mohit -- 45 ---- RUN DATE: 12/26/11 [facility] NMI LIVE PAGE 1 RUN TIME: 1401 Specimen Inquiry RUN USER: INTERFACE -- Name: AUTUMN JOHNSON#: [id number] Status: REG REF Re12/22/11 Age/Sex: 51/F Unit#: [id number] Location: [facility] : 60 -- Specimen: [id number] SOUT Spec Date:12/22/[address]: Sangita Pierson [facility] Spec Type: SURGICAL P Received:12/25/11 Copies to: SPECIMEN RIGHT DE ANDA PUNCH BIOPSY HISTORY PRE-OP DIAGNOSIS: Rash on lower legs GROSS DESCRIPTION The specimen is received in formalin labelled Autumn Johnson, Right [place], Punch Biopsy, and consists of a skin punch biopsy specimen measuring 0.4 x 0.4 x 0.5 cm. The specimen is inked and bisected. Submitted entirely, one cassette. DIAGNOSIS Skin, right chin, punch biopsy: Superficial mixed perivascular dermatitis without vascular damage (see comment). COMMENT The biopsy demonstrates focal hyperparakeratosis with mild spongiosis of epidermis and predominantly superficial perivascular dermatitis with a mixed perivascular infiltrate composed of lymphocytes and rare polymorphonuclear cells. The differential diagnosis includes primarily urticaria/angioedema, photo allergic reaction, drug reaction or less likely early stasis dermatitis. Features of arthropod assault reaction are not seen. No evidence of leukocytoclastic vasculitis noted. Signed Electronically by: LENARD WOODARD MD 12/26/11 1403 -- -- DEPARTMENT OF PATHOLOGY, [address] [place] [address] [facility] Permit #[id number] Lenard Wodoard M.D. Director Pj Iniguez M.D. Transitions Rn Care Coordinator Dir mohit -- 46 Anion gap measurement may be of limited value in the presence of any alkalosis, especially in a combined acid base disorder. . 47 A metabolite of Naproxen, O-desmethylnaproxen, has been shown to interfere with the [place] method for measuring total bilirubin. Samples from patients who have taken Naproxen have shown spurious elevation in total bilirubin levels. 48 Because ethnic data is not always readily available, this report includes an eGFR for both -Americans and non- Americans. The National Kidney Disease Education Program (NKDEP) does not endorse the use of the MDRD equation for patients that are not between the ages of 18 and 70, are , have extremes of body size, muscle mass, or nutritional status, or are non- or non-. According to the National Kidney Foundation, irrespective of diagnosis, the stage of the disease is based on the level of kidney function: Stage Description GFR(mL/min/1.73 m(2)) 1 Kidney damage with normal or decreased GFR 90 2 Kidney damage with mild decrease in GFR 60-89 3 Moderate decrease in GFR 30-59 4 Severe decrease in GFR 15-29 5 Kidney failure <15 (or dialysis) 49 Recommended INR for Patients on Oral Anticoagulants Prophylaxis 2.0 - 3.0 Treatment of thrombosis 2.0 - 3.0 Prevention of embolism 2.0 - 3.0 Prevention of embolism from prosthetic heart valves 2.5 - 3.5 50 DIAGNOSIS,TREATMENT,AND THERAPY MUST BE BASED ON THE INR VALUE ALONE. 51 RUN DATE: 12/22/11 [facility] NMI LIVE PAGE 1 RUN TIME: 820 Specimen Inquiry RUN USER: INTERFACE Name: DIPESHNIDHIAUTUMN Accpj#: [id number] Status: IZA STERLING Re12/17/11 Age/Sex: 51/F Unit#: [id number] Location: : 60 SPEC #: [id number] CAROL: 12/17/11 STATUS: [place] #: [id number] RECD: 12/17/[address]: [facility] SOURCE: BLOOD ENTR: 12/17/11 [facility] DR: Sangita LuaESC: BLOOD,VENO ORDERED: BLOOD CULTURE ACT WKST: 12/18/11 #1 Procedure Result Verified Site > AEROBIC CULTURE BOTTLE Final -820 ML NO GROWTH AFTER 5 DAYS > ANAEROBIC CULTURE BOTTLE Final -820 ML NO GROWTH AFTER 5 DAYS ML - [facility] Permit #[id number] [facility] Fetch MD [facility] [address] DEPARTMENT OF PATHOLOGY, [facility] [address] [place], [place] [address] [facility] Permit #[id number] Lenard Woodard M.D. Director Pj Iniguez M.D. Sock Lining Examiner 52 Anion gap measurement may be of limited value in the presence of any alkalosis, especially in a combined acid base disorder. . 53 A metabolite of Naproxen, O-desmethylnaproxen, has been shown to interfere with the [place]-Whit method for measuring total bilirubin. Samples from patients who have taken Naproxen have shown spurious elevation in total bilirubin levels. 54 Because ethnic data is not always readily available, this report includes an eGFR for both -Americans and non- Americans. The National Kidney Disease Education Program (NKDEP) does not endorse the use of the MDRD equation for patients that are not between the ages of 18 and 70, are , have extremes of body size, muscle mass, or nutritional status, or are non- or non-. According to the National Kidney Foundation, irrespective of diagnosis, the stage of the disease is based on the level of kidney function: Stage Description GFR(mL/min/1.73 m(2)) 1 Kidney damage with normal or decreased GFR 90 2 Kidney damage with mild decrease in GFR 60-89 3 Moderate decrease in GFR 30-59 4 Severe decrease in GFR 15-29 5 Kidney failure <15 (or dialysis) 55 Anion gap measurement may be of limited value in the presence of any alkalosis, especially in a combined acid base disorder. . 56 A metabolite of Naproxen, O-desmethylnaproxen, has been shown to interfere with the [place] method for measuring total bilirubin. Samples from patients who have taken Naproxen have shown spurious elevation in total bilirubin levels. 57 Because ethnic data is not always readily available, this report includes an eGFR for both -Americans and non- Americans. The National Kidney Disease Education Program (NKDEP) does not endorse the use of the MDRD equation for patients that are not between the ages of 18 and 70, are , have extremes of body size, muscle mass, or nutritional status, or are non- or non-. According to the National Kidney Foundation, irrespective of diagnosis, the stage of the disease is based on the level of kidney function: Stage Description GFR(mL/min/1.73 m(2)) 1 Kidney damage with normal or decreased GFR 90 2 Kidney damage with mild decrease in GFR 60-89 3 Moderate decrease in GFR 30-59 4 Severe decrease in GFR 15-29 5 Kidney failure <15 (or dialysis) 58 CHOLESTEROL INTERPRETATION: Desirable: Less than 200 MG/DL Borderline-High Risk: 200-239 MG/DL High-Risk: 240 MG/DL and over 59 HDL INTERPRETATION: Undesirable: High Risk: Less than 40 MG/DL Desirable: Low Risk: Greater than 60 MG/DL 60 LDL INTERPRETATION: Low Risk Optimal Level: LDL Less than 100 MG/DL Near or Above Optimal: LDL 100-129 MG/DL Borderline High Risk: LDL 130-159 MG/DL High Risk: LDL 160-189 MG/DL Very High Risk: LDL Greater than 189 MG/DL 61 ---- RUN DATE: 05/25/11 [facility] NMI LIVE PAGE 1 RUN TIME: 1606 Specimen Inquiry RUN USER: INTERFACE -- Name: AUTUMN JOHNSON [facility]#: [id number] Status: REG REF Re05/24/11 Age/Sex: 50/F Unit#: [id number] Location: [facility]. : 60 -- Specimen: [id number] SOUT Spec Date: 05/24/[address]: Sangita del toro [facility] Spec Type: CYTOLOGY Received: 05/25/11-4860 Copies to: SOURCE ECTOCERVICAL/ENDOCERVICAL Thin Prep with Reflex HPV Test PATIENT INFORMATION ACTUAL COLLECTION DATE: 05/24/11 ? No POST MENOPAUSAL? Yes HYSTERECTOMY? No DATE OF PRIOR SPECIMEN: 03/18/10 ADEQUACY OF SPECIMEN Satisfactory for evaluation * Transformation zone component identified * DIAGNOSIS NEGATIVE FOR INTRAEPITHELIAL LESION OR MALIGNANCY * This Pap test was evaluated with the assistance of the ThinPrep Pap Test Imaging System. The Pap Smear is a screening test designed to aid in the detection of premalign ant and malignant conditions of the uterine cervix. It is not a diagnostic procedure a nd should not be used as the sole means of detecting cervical cancer. Both false- positiv e and false-negative reports do occur. Depending on your risk status, a Pap smear lizz uld be obtained and evaluated every one to three years. Initial evaluation performed by Reymundo DEL VALLE CT(ASCP) 05/25/11 Final Interpretation electronically signed by: Reymundo DEL VALLE CT(ASCP) 05/25/11 1606 -- -- DEPARTMENT OF PATHOLOGY, [address] [place] [address] [facility] Permit #[id number] Lenard Woodard M.D. Director Pj Iniguez M.D. Transitions Rn Care Coordinator Dir mohit -- 62 Anion gap measurement may be of limited value in the presence of any alkalosis, especially in a combined acid base disorder. . 63 A metabolite of Naproxen, O-desmethylnaproxen, has been shown to interfere with the [place] method for measuring total bilirubin. Samples from patients who have taken Naproxen have shown spurious elevation in total bilirubin levels. 64 Because ethnic data is not always readily available, this report includes an eGFR for both -Americans and non- Americans. The National Kidney Disease Education Program (NKDEP) does not endorse the use of the MDRD equation for patients that are not between the ages of 18 and 70, are , have extremes of body size, muscle mass, or nutritional status, or are non- or non-. According to the National Kidney Foundation, irrespective of diagnosis, the stage of the disease is based on the level of kidney function: Stage Description GFR(mL/min/1.73 m(2)) 1 Kidney damage with normal or decreased GFR 90 2 Kidney damage with mild decrease in GFR 60-89 3 Moderate decrease in GFR 30-59 4 Severe decrease in GFR 15-29 5 Kidney failure <15 (or dialysis) 65 Anion gap measurement may be of limited value in the presence of any alkalosis, especially in a combined acid base disorder. . 66 Because ethnic data is not always readily available, this report includes an eGFR for both -Americans and non- Americans. The National Kidney Disease Education Program (NKDEP) does not endorse the use of the MDRD equation for patients that are not between the ages of 18 and 70, are , have extremes of body size, muscle mass, or nutritional status, or are non- or non-. According to the National Kidney Foundation, irrespective of diagnosis, the stage of the disease is based on the level of kidney function: Stage Description GFR(mL/min/1.73 m(2)) 1 Kidney damage with normal or decreased GFR 90 2 Kidney damage with mild decrease in GFR 60-89 3 Moderate decrease in GFR 30-59 4 Severe decrease in GFR 15-29 5 Kidney failure <15 (or dialysis) 67 Anion gap measurement may be of limited value in the presence of any alkalosis, especially in a combined acid base disorder. . 68 Because ethnic data is not always readily available, this report includes an eGFR for both -Americans and non- Americans. The National Kidney Disease Education Program (NKDEP) does not endorse the use of the MDRD equation for patients that are not between the ages of 18 and 70, are , have extremes of body size, muscle mass, or nutritional status, or are non- or non-. According to the National Kidney Foundation, irrespective of diagnosis, the stage of the disease is based on the level of kidney function: Stage Description GFR(mL/min/1.73 m(2)) 1 Kidney damage with normal or decreased GFR 90 2 Kidney damage with mild decrease in GFR 60-89 3 Moderate decrease in GFR 30-59 4 Severe decrease in GFR 15-29 5 Kidney failure <15 (or dialysis) 69 Anion gap measurement may be of limited value in the presence of any alkalosis, especially in a combined acid base disorder. . 70 A metabolite of Naproxen, O-desmethylnaproxen, has been shown to interfere with the [place] method for measuring total bilirubin. Samples from patients who have taken Naproxen have shown spurious elevation in total bilirubin levels. 71 Because ethnic data is not always readily available, this report includes an eGFR for both -Americans and non- Americans. The National Kidney Disease Education Program (NKDEP) does not endorse the use of the MDRD equation for patients that are not between the ages of 18 and 70, are , have extremes of body size, muscle mass, or nutritional status, or are non- or non-. According to the National Kidney Foundation, irrespective of diagnosis, the stage of the disease is based on the level of kidney function: Stage Description GFR(mL/min/1.73 m(2)) 1 Kidney damage with normal or decreased GFR 90 2 Kidney damage with mild decrease in GFR 60-89 3 Moderate decrease in GFR 30-59 4 Severe decrease in GFR 15-29 5 Kidney failure <15 (or dialysis) Procedures Date CPT Code Description Status 08/30/2017 Mammogram Completed 04/13/2017 Mammogram Completed 04/06/2017 Colonoscopy Completed 04/06/2017 02830 Colonoscopy Flexible Remove Tumor/Polyp/Lesion Snare Completed Technique 04/06/2017 19927 Moderate Sedation Services; Same Phys Intl 15 Mins; PT Completed >=5 Years 04/06/2017 38473 Moderate Sedation Services; Same Phys Each Additional Completed 15 Mins 07/29/2015 Bone Mineral Density Test Completed 07/29/2015 Mammogram Completed 02/12/2015 59683 ECHO Transthorasic Realtime 2D W Doppler & Color Completed [facility] 02/13/2014 Mammogram Completed 12/26/2013 00270 ECHO Transthorasic Realtime 2D W Doppler & Color Completed [facility] 06/24/2012 Mammogram Completed 03/22/2012 21469 ECHO Transthoracic, Real-Time 2D With Doppler And Color Completed Flow 03/21/2012 Colonoscopy Completed 12/22/2011 47242 Biopsy Skin Lesion Single Completed 06/30/2011 Bone Mineral Density Test Completed 2011 Mammogram Completed 2010 Mammogram Completed Encounters Type Date Location Provider CPT E/M Dx Office Visit 09/14/2017 [facility] Petty, [address] N63.10 9:00a Of [facility] M.D. Office Visit 07/26/2017 [facility] [place] [address] K11.20 3:20p - [place] Office Visit 07/19/2017 [facility] Latesha Alex, 80461 N63.14 3:30p - [place] M.DDidi Office Visit 06/08/2017 [facility] Sangita Pierson, N.P. 55011 S20.01xD 4:00p - [place] M79.671 Office Visit 05/25/2017 9:40a [facility] Sangita Pierson, N.P. 01178 M72.2 - [place] Office Visit 02/20/2017 1:40p [facility] Sangita Pierson, N.P. 37088 Z00.01 - [place] Z12.31 E03.9 E78.00 G40.909 Z85.038 M85.9 I89.0 Office Visit 07/24/2016 3:00p [facility] Sangita Pierson, N.P. 74323 L30.4 - [place] J20.9 Office Visit 01/24/2016 1:20p [facility] [place] [address] J20.9 - [place] Office Visit 12/17/2015 3:00p [facility] Sangita Pierson, N.P. 70213 J20.9 - [place] Office Visit 12/13/2015 4:00p [facility] Sangita Pierson, N.P. 62478 H66.92 - [place] J20.9 Office Visit 10/11/2015 11:40a [facility] Sangita Pierson, N.P. 36695 B37.3 - [place] Office Visit 09/29/2015 3:00p [facility] Sangita Pierson, N.P. 11089 J01.00 - [place] Office Visit 09/20/2015 2:40p [facility] Sangita Pierson, N.P. 40274 J06.9 - [place] Office Visit 08/20/2015 11:40a [facility] Sangita Pierson, N.P. 04791 L30.4 - [place] Office Visit 2015 3:20p [facility] Sangita Pierson, N.P. 31540 Z00.00 - [place] Z12.39 E03.9 E78.0 I89.0 G40.909 Z85.038 M85.89 R31.9 Office Visit 02/17/2015 8:40a [facility] Sangita Pierson, N.P. 91425 599.70 - [place] 578.1 V10.05 Office Visit 02/12/2015 11:40a [facility] Sangita Pierson, N.P. 47401 599.0 - [place] 599.71 788.41 Office Visit 12/24/2014 3:20p [facility] [place] [address] 465.9 [place] 780.60 Office Visit 12/01/2014 10:20a [facility] Sangita Pierson, N.P. 22977 599.70 - [place] 112.1 Office Visit 2014 2:40p [facility] Sangita Pierson, N.P. 68829 465.9 - [place] Office Visit 04/28/2014 3:20p [facility] Sangita Pierson, N.P. 95467 719.47 - [place] Office Visit 09/08/2013 4:00p [facility] Sangita Pierson, N.P. 19501 627.1 - [place] Office Visit 01/09/2013 3:40p [facility] Jayne Rod M.D., 57034 466.0 - [place] FACP Office Visit 08/29/2012 9:40a [facility] Sangita Pierson, N.P. 14139 611.71 - [place] Office Visit 07/01/2012 11:00a [facility] Sangita Pierson, N.P. 69410 244.9 - [place] 272.4 Office Visit 06/05/2012 10:20a [facility] Sangita Pierson, N.P. 94850 V70.0 - [place] V72.31 V76.10 733.90 244.9 457.1 272.4 345.90 235.5 V04.81 389.9 Office Visit 05/14/2012 11:40a [facility] Sangita Pierson, N.P. 79014 719.47 - [place] 627.1 Office Visit 04/22/2012 11:00a [facility] Sangita Pierson, N.P. 01969 782.1 - [place] 112.1 Office Visit 04/09/2012 2:20p [facility] Sangita Pierson, N.P. 89737 782.1 - [place] 686.9 Office Visit 03/28/2012 2:40p [facility] Jayne Rod M.D., 51241 461.9 - [place] FACP Office Visit 12/26/2011 4:20p [facility] Sangita Pierson, N.P. 16889 782.3 - [place] Office Visit 12/22/2011 11:20a [facility] Sangita Pierson, N.P. 45961 709.9 - [place] 782.3 Office Visit 12/19/2011 10:00a [facility] Sangita Pierson, N.P. 74620 709.9 - [place] 782.3 Office Visit 07/12/2011 1:00p DO Not Use [facility] Sangita Pierson, 05177 782.3 N.P. Office Visit 06/06/2011 2:20p DO Not Use [facility] Sangita Pierson, 34115 244.9 N.P. Office Visit 05/24/2011 3:00p DO Not Use [facility] Sangita Pierson, 96918 V70.0 N.P. V72.31 V76.10 V04.81 272.4 345.90 235.5 V06.1 733.90 Office Visit 04/27/2011 12:40p DO Not Use Latesha Alex 62489 782.1 [facility] Anna.D. Office Visit 04/05/2011 4:00p DO Not Use Sangita Varn, 48501 782.3 [facility] N.P. Office Visit 06/03/2010 2:30p DO Not Use Sangita Varn, 54980 795.01 [facility] N.P. Office Visit 05/23/2010 10:00a DO Not Use Sangita Varn, 13481 V72.31 [facility] N.P. Office Visit 03/11/2010 2:00p DO Not Use Jayne Rod M.D., 37868 780.39 [facility] FACP 235.5 Plan of Care Future Appointment(s):06/21/2018 11:30 am - Seth Petty M.D. at [facility] AT Jkedaqvt96/24/2018 1:00 pm - Sangita Pierson, N.P. at [facility] - [id number]/18/2018 - Seth Petty M.D.N63.10 Unspecified lump in the right breast, unspecified quadrantFollow up:in 6 months.S30.861A Insect bite (nonvenomous) of abdominal wall, init encntr
[2018-01-05 14:11] VITALS: BP 129/62
[2018-01-05] MEDS ORDERED: Ketorolac INJ* 60 MG/2 ML VIAL IM ONE (14:25)
[2018-01-05] MEDS ORDERED: Cyclobenzaprine TAB* 10 MG PO ONE (14:25)
--- NOTE | 2018-01-05 14:35 | UC ---
Main Villanueva Angela, scribed for Reynaldo Pearl MD on 01/05/18 at 1423 . Neck Pain HPI - HPI Summary HPI Summary: This pt is a 57 y/o female presenting to [facility] c/o left sided neck pain since yesterday morning. Pt reports she woke up yesterday with left sided neck pain. She states she never sleeps on the left side but yesterday when she woke up she was laying on the left side. Denies any neck trauma. At onset of neck pain pt rates her pain 10/10 in severity. Denies fever, chills, difficulty swallowing, headache, shoulder pain, sore throat, ear pain. This morning she used a couple of ice packs and took pain medications (unable to recall the name of meds) with some relief. She currently states her symptoms have improved and is able to move her neck now with some pain. She rates her pain 4 to 5 out of 10 in severity. - History of Current Complaint Chief Complaint: UCUpperExtremity Stated Complaint: NECK PAIN Time Seen by Provider: 01/05/18 14:09 Hx Obtained From: Patient Onset/Duration Of Injury/Symptoms: Hours Mechanism Of Injury: No Known Trauma Timing: Constant Onset/Duration: Lasting Days - 1, Still Present Severity: Moderate Pain Intensity: 5 Pain Scale Used: 0-10 Numeric Location: Discrete At: - left side of neck Aggravating Factors: Nothing Alleviating Factors: Ice - ice packs, OTC Meds - pain medication Associated Signs & Symptoms: Positive: Negative. Negative: Swelling, Redness, Bruising, Fever, Nuchal Rigity, Weakness, Headache - Allergies/Home Medications Allergies/Adverse Reactions: Allergies Allergy/AdvReac Type Severity Reaction Status Date / Time No Known Allergies Allergy Verified 01/05/18 14:11 Home Medications: Home Medications Acetaminophen 650 mg PO 01/05/18 [History] PMH/Surg Hx/FS Hx/Imm Hx Endocrine History: Thyroid Disease - Hypothyroid Other Cancer History: Colon CA (2007) - Surgical History Surgical History: Yes Surgery Procedure, Year, and Place: colon radiation. full hysterectomy. D&C. Brain surgery - Family History Known Family History: Positive: Hypertension - Mother and sister, Other - Father - lymphoma - Social History Alcohol Use: None Substance Use Type: None Smoking Status (MU): Former Smoker Type: Cigarettes Length of Time of Smoking/Using Tobacco: 8 years Have You Smoked in the Last Year: No When Did the Patient Quit Smoking/Using Tobacco: 1998 Review Of Systems Constitutional: Positive: Negative Skin: Positive: Negative Eyes: Positive: Negative ENT: Positive: Negative Respiratory: Positive: Negative Cardiovascular: Positive: Negative Gastrointestinal: Positive: Negative Genitourinary: Positive: Negative Musculoskeletal: Positive: Other: - left sided neck pain Neurological: Positive: Negative Psychological: Positive: Negative All Other Systems Reviewed And Are Negative: Yes Physical Exam - Summary Physical Exam Summary: VITAL SIGNS: Reviewed. GENERAL: Patient is a well-developed and nourished female who is lying comfortable in the stretcher. Patient is not in any acute respiratory distress. HEAD AND FACE: Normocephalic EYES: PERRLA, EOMI x 2. EARS: Hearing grossly intact. MOUTH: Oropharynx within normal limits. Airway is patent. NECK: Supple, trachea is midline, no adenopathy, no JVD, no carotid bruit. No c- spine tenderness. No nuchal rigidity. Tenderness on the sternocleidomastoid muscle on the left. CHEST: Symmetric, no tenderness at palpation LUNGS: Clear to auscultation bilaterally. No wheezing or crackles. CVS: Regular rate and rhythm, S1 and S2 present, no murmurs or gallops appreciated. ABDOMEN: Soft, non-tender. Bowel sounds are normal. No abdominal abnormal pulsations. EXTREMITIES: Full ROM in all major joints, no edema, no cyanosis or clubbing. Tenderness on the trapezius muscle on the left. NEURO: Alert and oriented x 3. No acute neurological deficits. Speech is normal and follows commands. SKIN: Dry and warm Triage Information Reviewed: Yes Vital Signs: Initial Vital Signs Temp 97.7 F 01/05/18 14:06 Pulse 78 01/05/18 14:06 Resp 18 01/05/18 14:06 BP 129/62 01/05/18 14:06 Pulse Ox 98 01/05/18 14:06 Vital Signs Reviewed: Yes Neck Pain Course/Dx - Course Course Of Treatment: Julio Cesar the patient has torticollis. The patient was given Toradol and Flexeril. Patient will be discharged home with follow-up with PCP. She was instructed to return to the urgent care or the emergency department if the symptoms worsen, if she develops any C-spine tenderness, she develops any fever or chills, or any other symptom. She understands and agrees. The patient was found to have slight increased blood pressure in UC. The patient will follow up with PCP for better control of BP. - Differential Dx/Diagnosis Provider Diagnoses: Torticollis Discharge - Sign-Out/Discharge Documenting (check all that apply): Discharge/Admit/Transfer - Discharge - Discharge Plan Condition: Stable Disposition: HOME Prescriptions: Cyclobenzaprine TAB* [Flexeril 10 MG TAB*] 10 mg PO TID PRN #12 tab PRN Reason: Pain Naproxen [Naproxen 500 mg tab] 500 mg PO BID #20 tablet Patient Education Materials: Spasmodic Torticollis (ED) Referrals: Latesha Alex MD [Primary Care Provider] - Additional Instructions: FOLLOW UP WITH YOUR PRIMARY CARE PROVIDER WITHIN ONE WEEK FOR HIGH BLOOD PRESSURE NOTED TODAY. RETURN TO URGENT CARE OR THE ED FOR ANY WORSENING OR NEW SYMPTOMS. - Billing Disposition and Condition Condition: STABLE Disposition: HOME The documentation as recorded by the Main meng Angela accurately reflects the service I personally performed and the decisions made by , Reynaldo Pearl MD.
== END 2018-01-05 15:03 | disposition home or self-care (01) ==
LOC: UCEAST 13:43
DX: M43.6 Torticollis (principal); E03.9 Hypothyroidism, unspecified; Z85.038 Personal history of other malignant neoplasm of large intestine; Z82.49 Family history of ischemic heart disease and other diseases of the circulatory system; Z87.891 Personal history of nicotine dependence
CPT/HCPCS: 96372; 99212; A9270-GY; G0463; J1885

== ENCOUNTER 2018-04-07 07:57 | Emergency (ER) | payer BC, MEDICARE ==
[2018-04-07 08:15] VITALS: BP 119/42
--- NOTE | 2018-04-07 08:15 | UC ---
Complaint Female HPI - HPI Summary HPI Summary: This patient is a 57 year old female presenting to [facility] with a chief complaint of hematuria since 3 days ago. Around 2330 in the evening, she was preparing food for a republican when she went to the bathroom and found a tinge of blood in urine with minor burning. Patient states she does not feel any other pain, except for the burning with urination. Patient additionally reports increased frequency and urgency of urination. Patient denies back pain, fever, vaginal discharge, chest pain, SOB, abd pain, vomiting, diarrhea She had cranberry juice yesterday with some improvement but no other treatment done so far. - History Of Current Complaint Stated Complaint: URINARY ISSUE Time Seen by Provider: 04/07/18 08:06 Hx Obtained From: Patient ?: No - post menoause Onset/Duration: Sudden Onset, Lasting Days, Still Present Timing: Constant Severity Currently: Mild Pain Intensity: 0 Pain Scale Used: 0-10 Numeric Aggravating Factor(s): Urination Alleviating Factor(s): Nothing Associated Signs And Symptoms: Positive: Negative - back pain, fever, vaginal discharge, chest pain, SOB, abd pain, vomiting, diarrhea - Allergies/Home Medications Allergies/Adverse Reactions: Allergies Allergy/AdvReac Type Severity Reaction Status Date / Time No Known Allergies Allergy Verified 04/07/18 08:15 Home Medications: Home Medications Leno/D3/Mag11/Zinc/Motor Vehicle Lecturer/Daniel/Bor [Caltrate 600+D Plus] 1 tab PO DAILY 04/07/18 [ History Confirmed 04/07/18] Levothyroxine TAB* [Synthroid TAB*] 100 mcg PO DAILY 04/07/18 [History Confirmed 04/07/18] Multivitamin [Multivitamins] 1 cap PO DAILY 04/07/18 [History Confirmed 04/07/18 ] PMH/Surg Hx/FS Hx/Imm Hx Previously Healthy: Yes Endocrine History: Hypothyroidism - On levothyroxin Other Endocrine History: negative Other Cardiovascular History: negative Other Respiratory History: Negative: COPD Other GI/ History: negative Neurological History: Seizures - Status post surgery in 1995 Other Neurological History: negative Other Psychological History: negative Cancer History: Colorectal Cancer - Anal cancer ,2008 status post radiation and surgery - Surgical History Surgical History: Yes Surgery Procedure, Year, and Place: colon radiation. full hysterectomy. D&C. Brain surgery - Family History Known Family History: Positive: Hypertension - Mother and sister, Other - Father - lymphoma - Social History Alcohol Use: None Substance Use Type: None Smoking Status (MU): Former Smoker Type: Cigarettes Length of Time of Smoking/Using Tobacco: 8 years Have You Smoked in the Last Year: No When Did the Patient Quit Smoking/Using Tobacco: 1998 Review of Systems Constitutional: Negative - fever, chills Skin: Negative Eyes: Negative ENT: Negative Respiratory: Negative - SOB Cardiovascular: Negative - Chest pain Gastrointestinal: Negative - Abd pain, vomiting, diarrhea Genitourinary: Negative - fVaginal discharge, Dysuria, Hematuria, Frequency, Urgency Motor: Negative Neurovascular: Negative Musculoskeletal: Negative Neurological: Negative Psychological: Negative Is Patient Immunocompromised?: No All Other Systems Reviewed And Are Negative: Yes Physical Exam - Summary Physical Exam Summary: Appearance: Well-Appearing, No Pain Distress, Well-Nourished Eyes: conjunctiva clear, no discharge ENT: Hearing grossly normal, no muffled/hoarse voice. Neck: Normal, Supple Respiratory/Lung Sounds: Lungs clear, Normal breath sounds Cardiovascular: RRR, No murmur Abdomen: Nontender, Soft, no guarding, not distended, no CVA tenderness. There is no tenderness of suprapubic area. Bowel Sounds: Present Musculoskeletal: Normal Neurological: Alert, muscle tone normal Psychiatric:Normal, age appropriate behavior Skin: Normal, Warm, Dry, Normal color Triage Information Reviewed: Yes Vital Signs: Initial Vital Signs Temp 97.3 F 04/07/18 08:09 Pulse 81 04/07/18 08:09 Resp 16 04/07/18 08:09 BP 119/42 04/07/18 08:09 Pulse Ox 100 04/07/18 08:09 Complaint Female Dx - Course Course Of Treatment: This patient is a 57 year old female presenting to [facility] with a chief complaint of dysuria and increased frequency along with mild hematuria since 2 days ago. Urinalysis Obtained- positive for trace blood and leukocytes. Urine Culture ordered. Patient will be discharged with prescription for Macrobid and a diagnosis for UTI. Patient is advised to follow up with PCP in 1week. The patient is agreeable with this plan. - Differential Dx/Diagnosis Provider Diagnoses: Urinary tract infection Discharge - Sign-Out/Discharge Documenting (check all that apply): Patient Departure All imaging exams completed and their final reports reviewed: Yes - urinalysis - Discharge Plan Condition: Stable Disposition: HOME Prescriptions: Nitrofurantoin Monohyd/M-Cryst [Macrobid 100 mg Capsule] 100 mg PO BID 5 Days # 10 cap Patient Education Materials: Urinary Tract Infection in Women (ED) Print Language: SWEDISH Referrals: Latesha Alex MD [Medical Doctor] - 1 Week Additional Instructions: Please start taking the medication as prescribed to the pharmacy . Follow up with your primary care doctor in 1 week Return to Urgent care / ER if symptoms get worse. - Billing Disposition and Condition Condition: STABLE Disposition: Home - Attestation Statements Document Initiated by Scribe: Yes Documenting Scribe: Namrata Hardy Provider For Whom Remigioibe is Documenting (Include Credential): Lakisha Pope MD Scribe Attestation: Namrata Villanueva scribed for Lakisha Pope MD on 04/07/18 at 0842. Scribe Documentation Reviewed: Yes Provider Attestation: The documentation as recorded by the Namrata meng accurately reflects the service I personally performed and the decisions made by Lakisha peacock MD
--- NOTE | 2018-04-09 19:32 | UC ---
- Progress Note Progress Note: urine culture + Streptococcus on macrobid await sensitivity no change [email or web address] 04/09/2018 Discharge - Sign-Out/Discharge Documenting (check all that apply): Post-Discharge Follow Up All imaging exams completed and their final reports reviewed: Yes - urinalysis - Discharge Plan Condition: Stable Disposition: HOME Prescriptions: Nitrofurantoin Monohyd/M-Cryst [Macrobid 100 mg Capsule] 100 mg PO BID 5 Days # 10 cap Patient Education Materials: Urinary Tract Infection in Women (ED) Print Language: UPPER SORBIAN Referrals: Latesha Alex MD [Medical Doctor] - 1 Week Additional Instructions: Please start taking the medication as prescribed to the pharmacy . Follow up with your primary care doctor in 1 week Return to Urgent care / ER if symptoms get worse. - Billing Disposition and Condition Condition: STABLE Disposition: Home
--- NOTE | 2018-04-10 15:24 | PN ---
Progress Note - Progress Note Date of Service: 04/10/18 Note: Patient's urine culture is not sensitive to Macrobid. sent script to place on Keflex 500mg bid x7 days. Should stop the Macrobid. Please call patient to inform of change.
== END 2018-04-07 08:43 | disposition home or self-care (01) ==
LOC: UCEAST 07:57
DX: N39.0 Urinary tract infection, site not specified (principal); B95.5 Unspecified streptococcus as the cause of diseases classified elsewhere; R31.9 Hematuria, unspecified; E03.9 Hypothyroidism, unspecified; Z87.891 Personal history of nicotine dependence
CPT/HCPCS: 81003; 87077; 87086; 87186; 99212; G0463

== ENCOUNTER 2018-07-18 14:34 | Emergency (ER) | payer BC, MEDICARE ==
--- OUTSIDE RECORDS SUMMARY | 2018-07-18 14:43 | XMS REPORT | Continuity of Care Document ---
:1960 External Reference #:[id number] Author Name Nora Beaver Care Team Providers Name Role Phone Latesha Alex MD Primary Care Physician Unavailable Payers Type Date Identification Numbers Payment Provider Subscriber Effective: Policy Number: [id number] Facets Mark Johnson 2012 Group Name: Active Employee [address] [address] PayID: [id number] WINIFRED Brown [id number] Effective: 1996 Policy Number: [id number] Medicare Autumn Johnson Group Name: [employer] [address] PayID: [id number] [place] [address] Advance Directives Type Date Description Status Comment Other Directive 01/30/2014 Health Care Proxy Current and Verified Problems Date Description Provider Status Onset: 04/05/2011 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 Active digestive and respiratory systems Onset: 05/24/2011 Epilepsy Sangita Varn, N.P. Active Onset: 05/24/2011 Hyperlipidemia Sangita Varn, N.P. Active Onset: 11/02/2011 Lymphedema Sangita Varn, N.P. Active Onset: 06/05/2012 Hypothyroidism Sangita Varn, N.P. Active Onset: 06/05/2012 Osteochondropathy Sangita Varn, N.P. Active Family History Date Family Member(s) Problem(s) Comments : (age 69 Father due to Lymphoma Years) Mother Hypertension age 77 Children 2 1 Son - age 26 Healthy 1 Son - age 24 Healthy Siblings 3 Sisters - All Healthy Social History Type Date Description Comments Sex Unknown Marital Status Occupation Homemaker ETOH Use Denies alcohol use Tobacco Use Start: Unknown End: Patient is a former Smoked 3 years, less Unknown smoker than a pack a day. Quit at age 20 Smoking Status Reviewed: 07/01/18 Patient is a former Smoked 3 years, less smoker than a pack a day. Quit at age 20 Exercise Exercises sporadically Type/Frequency Allergies, Adverse Reactions, Alerts Date Description Reaction Status Severity Comments 05/20/2010 No Known Drug Allergy Active Medications Medication Date Status Form Strength Qnty SIG Indications Ordering Provider Nystatin 05/24 Active Powder [id number] 90gm apply L30.4 t/GM twice Varn, N.P. daily until rash clears Triamcinolone 05/24 Active Lotion 0.1% 60ml apply to R21 Acetonide dry skin Varn, N.P. once or twice daily Premarin 10/31 Active Tablets 0.3mg 90tab 1 tablet s po daily Varn, N.P. Compression 04/16 Active Misc 2unit knee high Stockings s 30 - 40 Varn, N.P. mm Synthroid 09/17 Active Tablets 100mcg 90tab take one s tablet by Varn, N.P. mouth every day Caltrate 600+D 04/05 Active Chewtabs 600-400mg 1 po bid -Unit Mickie Rod, [facility] Centrum Silver 04/05 Active Tablets 1 po qd [facility], [facility] Depakote Active Tablets DR 250mg 360ta 3 tablets Unknown /0000 bs twice a day Lamictal Active Tablets 100mg 1 tablet Unknown /0000 twice a day Dexilant Active Capsules DR 60mg 1 by Unknown /0000 mouth every day Betmiga Active 50mg 1 po qday Unknown /0000 Clotrimazole/Beta 05/24 Hx Cream 1-0.05% 15gm apply 2 - methasone 3 times Varn, N.P. Dipropionate - daily as 05/24 Bactrim DS 05/24 Hx Tablets 800-160mg 14tab one by N39.0 s mouth Varn, N.P. - twice a 05/31 day for days Fluconazole 12/28 Hx Tablets 150mg 2tabs one by mouth may Varn, N.P. - repeat in 05/24 3 days as needed Doxycycline 12/21 Hx Tablets 100mg 2tabs 2 tablets Hycl by mouth Varn, N.P. - 05/24 Fluconazole 08/07 Hx Tablets 150mg 2tabs one by B37.3 Salbador mouth december LEODAN Horton - repeat in 09/12 3 days as needed Cephalexin 07/26 Hx Capsules 500mg 28cap take one K11.20 s capsule LEODAN Horton - every 6 12/ hours 7 days Lotrisone 05/09 Hx Cream 1-0.05% 15uni apply ts externall Varn, N.P. - y bid-tid 09/12 Fluconazole 02/23 Hx Tablets 150mg 2tabs one by mouth may Varn, N.P. - repeat in 03/01 3 days as needed Lotrisone 02/23 Hx Cream 1-0.05% 15gm apply externall Varn, N.P. - y bid-tid 03/09 Compression 02/20 Hx 1unit use every I89.0 s evening Varn, N.P. - dx: 09/12 lymphedem a cpt [id number] Nystatin 07/24 Hx Powder 1unit apply L30.4 s twice a Varn, N.P. - day until 09/12 clears Azithromycin 07/24 Hx Tablets 250mg 6tabs two tabs J20.9 day one, Varn, N.P. - one daily 08/03 till Benzonatate 07/24 Hx Capsules 100mg 30cap one by J20.9 s mouth Varn, N.P. - three 08/07 daily as needed for cough Guaifenesin 07/21 Hx Tablets 400mg 60tab One po s bid prn Varn, N.P. - cough 08/04 Cheratussin ac 01/23 Hx Syrup 100-10mg/ 120ml 1 - 2 J20.9 5ML teaspoons Sol, ANIMAL TECH - by mouth 02/01 every hours as needed Azithromycin 01/23 Hx Tablets 250mg 6tabs 2 tabs by 0.9 mouth Sol, ANIMAL TECH - every day 01/28 x1 day, tab by mouth every day x 4 days Levaquin 12/16 Hx Tablets 500mg 10tab 1 by J20.9 s mouth Varn, N.P. - daily for 12/26 Prednisone 12/16 Hx Tablets 10mg 40tab 4 tablets 0. s by mouth Varn, N.P. - for 4 01/01 days tablets by mouth for 4 days 2 tablets by mouth for 4 days 1 tablet by mouth for 4 days Cheratussin ac 12/16 Hx Syrup 100-10mg/ 120ml 1 - 2 0. 5ML teaspoons Varn, N.P. - by mouth 12/23 every hours as needed Flovent HFA 12/16 Hx Aerosol 110mcg/Ac 12gm 2 puffs 0. t twice Varn, N.P. - daily 12/30 Azithromycin 12/12 Hx Tablets 250mg 6tabs two tabs H66.92 day one, Varn, N.P. - one daily 12/22 till Benzonatate 12/12 Hx Capsules 200mg 30cap one by J20. s mouth Varn, N.P. - three 12/22 times daily as needed for cough Ventolin HFA [...] s mouth Varn, N.P. - every 12 03/05 hours for ten days Fluticasone 09/29 Hx Suspension 50mcg/Act 16uni 2 sprays J01.00 ts each Varn, N.P. - nostril 10/12 daily as needed Benzonatate 09/20 Hx Capsules 200mg 30cap [...] Hx Capsules 75mg 10cap take one 465.9 s capsule Sol ANIMAL TECH - twice 12/31 daily for 5 days. Fluconazole 12/01 Hx Tablets 150mg 2tabs one by 112.1 mouth may Varn, N.P. - repeat in 12/07 3 days as needed Clobetasol 12/01 Hx Cream 0.05% 60gm apply 112.1 thin film Varn, N.P. - twice 02/12 daily for not more than 2 weeks then two weeks off and may start again if needed Azithromycin 06/26 Hx Tablets 250mg 6tabs two tabs day one, Varn, N.P. - one daily 07/06 till Benzonatate 06/22 Hx Capsules 100mg 30cap one by 465.9 s mouth Varn, N.P. - three 07/02 times daily as needed for cough Triamcinolone 12/08 Hx Cream 0.1% 30gm apply Sangita Acetonide twice a Varn, N.P. - day [...] 125mcg 30tab 1 po qd 244.9 Sangita s Varn, N.P. - 08/28 Fluconazole 04/22 Hx Tablets 150mg 2tabs one by 112.1 mouth may Varn, N.P. - repeat in 04/28 3 days needed Lotrisone 04/22 Hx Cream 1-0.05% 15gm apply 112.1 externall Varn, N.P. - y bid-tid 04/29 Triamcinolone 04/19 Hx Cream 0.1% 30gm apply bid 782.1 Latesha Acetonide until Cotton, - clear M.D. 07/01 Diflucan 04/15 Hx Tablets 150mg 2tabs sig 1 po repeat in Varn, N.P. - 3 days if 05/14 needed Medrol Dosepak 04/09 Hx Tablets 4mg 1pak as 782.1 directed Varn, N.P. - 04/15 Triamcinolone 04/09 Hx Cream 0.1% 30gm apply bid 782.1 Sangita Acetonide until Varn, N.P. - clear 04/16 Cephalexin 04/09 Hx Capsules 500mg 21cap 1 po tid 686.9 Sangita s for 7 Varn, N.P. - days 04/16 Nasonex 03/28 Hx Suspension 50mcg/Act 1unit 2 sprays 461.9 s to each Viola, - nostril Mickie, FACP 07/01 twice daily Guaiatussin ac 03/28 Hx Syrup 100-10mg/ 4oz 1-2 tsp 461.9 5ML by mouth Viola, - qhs prn Mickie, FACP 04/09 Amoxicillin 12/18 Hx Capsules 500mg 30cap one po 709.9 Latesha s tid for Isai, - 10 days M.D. 12/28 Sulfamethoxazole/ 12/18 Hx Tablets 800-160mg 20tab one po 709.9 Latesha Trimethoprim s bid for Isai, - 10 days M.D. 12/28 Levothyroxine 08/07 Hx Tablets 75mcg 90tab 1 po qd 244.9 Latesha Sodium s Obed Alex M.D. 09/17 Levothyroxine 06/06 Hx Tablets 50mcg 90tab 1 po qd 244.9 Jayne Sodium s Obed Rod M.D., [facility] 08/07 Premarin 05/24 Hx Tablets 0.3mg 90tab 1 by s mouth Varn, N.P. - every day 10/31 Vesicare 04/05 Hx Tablets 10mg 1 po qd Obed Rod M.D., [facility] 09/08 Hydrochlorothiazi 04/05 Hx Tablets 25mg 90tab 1 po qd 782.3 Latesha de s Obed Alex M.D. 05/[address] 40mg 90tab 1 tablet Latesha / s daily Obed Alex M.D. 04/27 Premarin Hx Tablets 0.625mg 30tab 1 tablet Jayne / s daily Obed Rod M.D., [facility] 05/24 Hydrochlorothiazi 00/00 Hx Tablets 25mg 90tab 1 tablet Unknown de /0000 s daily - 04/05 Furosemide Hx Tablets 20mg 10tab 1 po Unknown /0000 s qam-maxim - um daily 07/01 dose Cephalexin Hx Capsules 500mg 21cap take 1 Unknown /0000 s tablet by - mouth 03/28 times a day Gelnique Hx Gel 3(28)% Unknown /0000 (mg/Act) - 01/30 Vesicare 00 Hx Tablets 10mg 30tab 1 by Unknown [...] CPT Code Status Date Vaccine Lot # [id number] Given 05/04/2018 Influenza Virus Vaccine, Quadrivalent, Split, Preservative Free Q2039 Given 06/10/2015 Flu Vaccine NOS Q2037 Given 06/05/2012 Fluvirin Im 3Yrs And Older [id number] Q2035 Given 05/24/2011 Afluria Vaccine [id number] Given 05/24/2011 Tdap - Tetanus/Diptheria/Acellular Pertussis [id number] Vital Signs Date Vital Result Comment 07/01/2018 9:09am Height 66 inches 5'6" Weight 237.00 lb BP Systolic Sitting 126 mmHg BP Diastolic Sitting 72 mmHg Respiratory Rate 16 /min Pain Level 0 BMI (Body Mass Index) 38.2 kg/m2 05/24/2018 2:41pm Height 66 inches 5'6" Weight 237.00 lb Heart Rate 94 /min BP Systolic 120 mmHg BP Diastolic 66 mmHg Body Temperature 98.3 F O2 % BldC Oximetry 98 % BMI (Body Mass Index) 38.2 kg/m2 12/21/2017 9:02am Height 66 inches 5'6" Weight 234.00 lb Heart Rate 60 /min BP Systolic Sitting 140 mmHg BP Diastolic Sitting 76 mmHg Respiratory Rate 16 /min Pain Level 0 BMI (Body Mass Index) 37.8 kg/m2 09/14/2017 9:02am Height 66 inches 5'6" Weight 230.00 lb Heart Rate 74 /min BP Systolic Sitting 118 mmHg BP Diastolic Sitting 68 mmHg Respiratory Rate 16 /min Pain Level 0 BMI (Body Mass Index) 37.1 kg/m2 07/26/2017 3:31pm Height 66 inches 5'6" Weight 238.00 lb Heart Rate 84 /min BP Systolic Sitting 126 mmHg BP Diastolic Sitting 72 mmHg Body Temperature 97.4 F O2 % BldC Oximetry 97 % BMI (Body Mass Index) 38.4 kg/m2 07/19/2017 3:48pm Weight 238.00 lb Heart Rate 85 /min BP Systolic 132 mmHg BP Diastolic 76 mmHg O2 % BldC Oximetry 96 % 06/08/2017 4:08pm Weight 238.50 lb Heart Rate 92 /min BP Systolic 120 mmHg BP Diastolic 70 mmHg Body Temperature 97.5 F O2 % BldC Oximetry 98 % 05/25/2017 9:40am Weight 241.25 lb Heart Rate 87 /min BP Systolic 120 mmHg BP Diastolic 66 mmHg Body Temperature 96.9 F O2 % BldC Oximetry 98 % 02/20/2017 2:20pm Height 66 inches 5'6" Weight 232.25 lb Heart Rate 84 /min BP Systolic 110 mmHg BP Diastolic 68 mmHg Body Temperature 97.3 F O2 % BldC Oximetry 97 % BMI (Body Mass Index) 37.5 kg/m2 07/24/2016 3:03pm Height 66.5 inches 5'6.50" Weight 232.00 lb Heart Rate 86 /min BP Systolic 112 mmHg BP Diastolic 78 mmHg Body Temperature 97.9 F O2 % BldC Oximetry 97 % BMI (Body Mass Index) 36.9 kg/m2 01/24/2016 1:13pm Weight 229.25 lb Heart Rate 105 /min BP Systolic Sitting 107 mmHg BP Diastolic Sitting 67 mmHg Body Temperature 98.8 F O2 % BldC Oximetry 98 % 12/17/2015 2:58pm Weight 234.00 lb Heart Rate 96 /min BP Systolic Sitting 118 mmHg BP Diastolic Sitting 70 mmHg Respiratory Rate 15 /min Body Temperature 97.6 F O2 % BldC Oximetry 98 % 12/13/2015 4:13pm Weight 233.00 lb Heart Rate 99 /min BP Systolic Sitting 126 mmHg BP Diastolic Sitting 74 mmHg Respiratory Rate 16 /min Body Temperature 98.9 F O2 % BldC Oximetry 97 % 10/11/2015 11:51am Weight 241.00 lb Heart Rate 98 /min BP Systolic Sitting 119 mmHg BP Diastolic Sitting 69 mmHg Body Temperature 97.3 F O2 % BldC Oximetry 98 % 09/29/2015 2:36pm Weight 236.00 lb Heart Rate 118 /min BP Systolic Sitting 134 mmHg BP Diastolic Sitting 86 mmHg Body Temperature 97.3 F O2 % BldC Oximetry 98 % 09/20/2015 2:40pm Weight 235.00 lb Heart Rate 80 /min BP Systolic Sitting 128 mmHg BP Diastolic Sitting 84 mmHg Respiratory Rate 15 /min Body Temperature 98.2 F O2 % BldC Oximetry 99 % 08/20/2015 11:40am Weight 229.25 lb Heart Rate 96 /min BP Systolic Sitting 116 mmHg BP Diastolic Sitting 76 mmHg Body Temperature 98.1 F O2 % BldC Oximetry 97 % 2015 3:33pm Height 66.5 inches 5'6.50" Weight 230.00 lb Heart Rate 64 /min BP Systolic Sitting 124 mmHg BP Diastolic Sitting 80 mmHg Respiratory Rate 14 /min Body Temperature 98.0 F O2 % BldC Oximetry 98 % BMI (Body Mass Index) 36.6 kg/m2 02/17/2015 8:51am Height 66.5 inches 5'6.50" Weight 228.25 lb Heart Rate 90 /min BP Systolic 112 mmHg BP Diastolic 63 mmHg Body Temperature 98.5 F BMI (Body Mass Index) 36.3 kg/m2 02/12/2015 10:28am Height 66.5 inches 5'6.50" Weight 231.50 lb Heart Rate 84 /min BP Systolic 125 mmHg BP Diastolic 67 mmHg Body Temperature 98.1 F BMI (Body Mass Index) 36.8 kg/m2 12/24/2014 3:27pm Weight 226.00 lb Heart Rate 112 /min BP Systolic Sitting 104 mmHg BP Diastolic Sitting 70 mmHg Body Temperature 102.8 F O2 % BldC Oximetry 98 % 12/01/2014 10:18am Height 66.5 inches 5'6.50" Weight 231.00 lb Heart Rate 85 /min BP Systolic 111 mmHg BP Diastolic 64 mmHg Body Temperature 97.4 F BMI (Body Mass Index) 36.7 kg/m2 2014 2:41pm Height 67 inches 5'7" Weight 222.00 lb Heart Rate 90 /min BP Systolic Sitting 128 mmHg BP Diastolic Sitting 72 mmHg Body Temperature 98.1 F BMI (Body Mass Index) 34.8 kg/m2 04/28/2014 3:25pm Height 67 inches 5'7" Weight 222.75 lb Heart Rate 102 /min BP Systolic Sitting 118 mmHg BP Diastolic Sitting 68 mmHg Body Temperature 97.0 F O2 % BldC Oximetry 98 % BMI (Body Mass Index) 34.9 kg/m2 01/30/2014 1:45pm Height 67 inches 5'7" Weight 231.00 lb Heart Rate 104 /min BP Systolic Sitting 122 mmHg BP Diastolic Sitting 70 mmHg BMI (Body Mass Index) 36.2 kg/m2 09/08/2013 3:54pm Height 67 inches 5'7" Weight 227.00 lb Heart Rate 70 /min BP Systolic Sitting 120 mmHg BP Diastolic Sitting 78 mmHg BMI (Body Mass Index) 35.5 kg/m2 01/09/2013 3:39pm Weight 230.00 lb Heart Rate 78 /min BP Systolic Sitting 102 mmHg BP Diastolic Sitting 60 mmHg Body Temperature 98.2 F 08/29/2012 9:44am Height 67.5 inches 5'7.50" Weight 231.00 lb Heart Rate 78 /min BP Systolic Sitting 130 mmHg BP Diastolic Sitting 82 mmHg BMI (Body Mass Index) 35.6 kg/m2 07/01/2012 10:58am Height 67.5 inches 5'7.50" Weight 231.00 lb Heart Rate 72 /min BP Systolic Sitting 110 mmHg BP Diastolic Sitting 70 mmHg BMI (Body Mass Index) 35.6 kg/m2 06/05/2012 10:33am Height 67.5 inches 5'7.50" Weight 227.00 lb Heart Rate 80 /min BP Systolic Sitting 126 mmHg BP Diastolic Sitting 66 mmHg BMI (Body Mass Index) 35.0 kg/m2 05/14/2012 11:47am Height 67.5 inches 5'7.50" Weight 224.00 lb Heart Rate 80 /min BP Systolic Sitting 120 mmHg BP Diastolic Sitting 78 mmHg BMI (Body Mass Index) 34.6 kg/m2 04/22/2012 11:17am Height 67.5 inches 5'7.50" Weight 222.75 lb Heart Rate 80 /min BP Systolic Sitting 146 mmHg BP Diastolic Sitting 82 mmHg Body Temperature 98.2 F BMI (Body Mass Index) 34.4 kg/m2 04/09/2012 2:25pm Height 67.5 inches 5'7.50" Weight 225.00 lb Heart Rate 80 /min BP Systolic Sitting 128 mmHg BP Diastolic Sitting 82 mmHg BMI (Body Mass Index) 34.7 kg/m2 03/28/2012 2:47pm Height 67.5 inches 5'7.50" Weight 221.00 lb Heart Rate 84 /min BP Systolic Sitting 122 mmHg BP Diastolic Sitting 66 mmHg Body Temperature 98.3 F BMI (Body Mass Index) 34.1 kg/m2 12/26/2011 3:48pm Height 65 inches 5'5" Weight 231.00 lb Heart Rate 86 /min BP Systolic Sitting 122 mmHg BP Diastolic Sitting 74 mmHg BMI (Body Mass Index) 38.4 kg/m2 12/22/2011 11:21am Height 65 inches 5'5" Weight 226.00 lb Heart Rate 88 /min BP Systolic Sitting 120 mmHg BP Diastolic Sitting 84 mmHg BMI (Body Mass Index) 37.6 kg/m2 12/19/2011 10:09am Height 65 inches 5'5" Weight 231.00 lb Heart Rate 84 /min BP Systolic Sitting 126 mmHg BP Diastolic Sitting 64 mmHg BMI (Body Mass Index) 38.4 kg/m2 07/12/2011 1:02pm Height 65 inches 5'5" Weight 226.25 lb Heart Rate 72 /min BP Systolic Sitting 122 mmHg l BP Diastolic Sitting 80 mmHg l BMI (Body Mass Index) 37.6 kg/m2 06/06/2011 2:16pm Height 65 inches 5'5" Weight 218.00 lb BP Systolic Sitting 108 mmHg L BP Diastolic Sitting 62 mmHg L BMI (Body Mass Index) 36.3 kg/m2 05/24/2011 3:01pm Height 65 inches 5'5" Weight 216.00 lb Heart Rate 80 /min BP Systolic Sitting 110 mmHg l BP Diastolic Sitting 62 mmHg l BMI (Body Mass Index) 35.9 kg/m2 04/27/2011 12:50pm Height 66 inches 5'6" Weight 220.00 lb Heart Rate 66 /min BP Systolic 132 mmHg BP Diastolic 78 mmHg Body Temperature 97.5 F BMI (Body Mass Index) 35.5 kg/m2 04/05/2011 3:46pm Height 66 inches 5'6" Weight 220.00 lb Heart Rate 68 /min BP Systolic Sitting 122 mmHg BP Diastolic Sitting 78 mmHg BMI (Body Mass Index) 35.5 kg/m2 06/03/2010 2:50pm Weight 216.00 lb Heart Rate 78 /min BP Systolic 118 mmHg BP Diastolic 80 mmHg 05/23/2010 10:05am Height 66 inches 5'6" Weight 216.50 lb Heart Rate 72 /min BP Systolic 128 mmHg BP Diastolic 84 mmHg BMI (Body Mass Index) 34.9 kg/m2 Results Test Date Facility Test Result H/L Range Note Urine Culture And 05/24/2018 [facility] Urine Culture SEE RESULT 1, [address] [place] [address] [phone] Ua Routine 05/24/2018 [facility] Ua Specific [address] [place] Ua PH 5 Ua Color yellow Ua Appera clear Ua WBC trace Ua Protein negative Ua Glucose negative Ua Ketones negative Ua Bilirubin negative Ua Urobilinogen negative Ua Nitrite negative Ua Occult Blood trace Laboratory test 04/12/2018 [facility] TSH (Thyroid 2.23 mcIU/mL N 0.34-5.[address] Stim Horm) [place] [address] [phone] Valproic Acid (Depakene) 111.0 g/mL High 50-100 Vitamin B12 435 pg/mL N 180-914 3 Lamotrigine (Lamictal) 10.5 g/mL 2.5 - 15.0 4 Poc Urinalysis 04/07/2018 [facility] Poc Glucose, Negative Negative [address] [place] [address] [phone] Poc Bilirubin, Urine Negative Negative Poc Ketone, Urine Negative Negative Poc Specific [place], Urine 1.015 N 1.010-1.030 Poc Blood, Urine Trace-intact Abnormal Negative Poc pH, Urine 6.5 N 5-9 Poc Protein, Urine Negative Negative Poc Urobilinogen, Urine 0.2 Negative Poc Nitrite, Urine Negative Negative Poc Leukocytes, Urine 1+ Abnormal Negative Poc Color, Urine Yellow Poc Clarity, Urine Clear 5 Urine Culture And 04/07/2018 [facility] Urine SEE RESULT 6 , [address] [place] [address] [phone] CBC Auto Diff 02/15/2018 [facility] White Blood 5.5 10^3/uL N 3.5-[address] Count 0.8 [place] [address] [phone] Red Blood Count 3.89 10^6/uL Low 4.00-5.40 Hemoglobin 13.3 g/dL N 12.0-16.0 Hematocrit 39 % N 35-47 Mean Corpuscular Volume 100 fL High 80-97 Mean Corpuscular Hemoglobin 34 pg High 27-31 Mean Corpuscular HGB Conc 34 g/dL N 31-36 Red Cell Distribution Width 13 % N 10.5-15 Platelet Count 273 10^3/uL N 150-450 Mean Platelet Volume 7.4 um3 N 7.4-10.4 Abs Neutrophils 2.8 10^3/uL N 1.5-7.7 Abs Lymphocytes 1.7 10^3/uL N 1.0-4.8 Abs Monocytes 0.7 10^3/uL N 0-0.8 Abs Eosinophils 0.2 10^3/uL N 0-0.6 Abs Basophils 0 10^3/uL N 0-0.2 Abs Nucleated RBC 0 10^3/uL Granulocyte % 51.3 % N 38-83 Lymphocyte % 31.6 % N 25-47 Monocyte % 13.2 % High 0-7 Eosinophil % 3.1 % N 0-6 Basophil % 0.8 % N 0-2 Nucleated Red Blood Cells % 0.1 Comp Metabolic Panel 02/15/2018 [facility] Sodium 139 mmol/L N 135-[address] [place] [address] [phone] Potassium 4.2 mmol/L N 3.5-5.0 Chloride 103 mmol/L N 101-111 Co2 Carbon Dioxide 30 mmol/L N 22-32 Anion Gap 6 mmol/L N 2-11 Glucose 105 mg/dL High 70-100 Blood Urea Nitrogen 12 mg/dL N 6-24 Creatinine 0.80 mg/dL N 0.51-0.95 BUN/Creatinine Ratio 15.0 N 8-20 Calcium 9.7 mg/dL N 8.6-10.3 Total Protein 7.0 g/dL N 6.4-8.9 Albumin 4.1 g/dL N 3.2-5.2 Globulin 2.9 g/dL N 2-4 Albumin/Globulin Ratio 1.4 N 1-3 Total Bilirubin 0.30 mg/dL N 0.2-1.0 Alkaline Phosphatase 53 U/L N 34-104 Alt 11 U/L N 7-52 Ast 17 U/L N 13-39 Egfr Non- 73.9 >60 Egfr 89.5 >60 8 Laboratory test 04/06/2017 [facility] Surgical SEE RESULT 9 , [address] [place] [address] [phone] Comp Metabolic 03/16/2017 [facility] Sodium 135 mmol/L N 133- [address] [place] [address] [phone] Potassium 4.5 mmol/L N 3.5-5.0 Chloride 100 mmol/L Low 101-111 Co2 Carbon Dioxide 29 mmol/L N 22-32 Anion Gap 6 mmol/L N 2-11 Glucose 88 mg/dL N 70-100 Blood Urea Nitrogen 12 mg/dL N 6-24 Creatinine 0.75 mg/dL N 0.51-0.95 BUN/Creatinine Ratio 16.0 N 8-20 Calcium 9.0 mg/dL N 8.6-10.3 Total Protein 6.2 g/dL Low 6.4-8.9 Albumin 3.7 g/dL N 3.2-5.2 Globulin 2.5 g/dL N 2-4 Albumin/Globulin Ratio 1.5 N 1-3 Total Bilirubin 0.40 mg/dL N 0.2-1.0 Alkaline Phosphatase 45 U/L N 34-104 Alt 10 U/L N 7-52 Ast 15 U/L N 13-39 Egfr Non- 79.9 N >60 Egfr 102.8 N >60 11 Lipid Profile 03/16/2017 [facility] Triglycerides 151 mg/dL N 12 (Trig/Chol/HDL) [address] [place] [address] [phone] Cholesterol 175 mg/dL N 13 HDL Cholesterol 62.3 mg/dL N 14 LDL Cholesterol 83 mg/dL N 15 Laboratory test 03/16/2017 [facility] TSH (Thyroid 4.39 mcIU/mL N 0.34-5.[address] Stim Horm) [place] [address] [phone] CBC Auto Diff 03/02/2017 [facility] White Blood 5.5 10^3/uL N 3.5-10.[address] [place] [address] [phone] Red Blood Count 3.80 10^6/uL Low 4.0-5.4 Hemoglobin 12.8 g/dL N 12.0-16.0 Hematocrit 39 % N 35-47 Mean Corpuscular Volume 103 fL High 80-97 Mean Corpuscular Hemoglobin 34 pg High 27-31 Mean Corpuscular HGB Conc 33 g/dL N 31-36 Red Cell Distribution Width 13 % N 10.5-15 Platelet Count 241 10^3/uL N 150-450 Mean Platelet Volume 8 um3 N 7.4-10.4 Abs Neutrophils 3.3 10^3/uL N 1.5-7.7 Abs Lymphocytes 1.4 10^3/uL N 1.0-4.8 Abs Monocytes 0.7 10^3/uL N 0-0.8 Abs Eosinophils 0.1 10^3/uL N 0-0.6 Abs Basophils 0 10^3/uL N 0-0.2 Abs Nucleated RBC 0 10^3/uL N Granulocyte % 60.2 % N 38-83 Lymphocyte % 24.8 % Low 25-47 Monocyte % 12.2 % High 1-9 Eosinophil % 1.9 % N 0-6 Basophil % 0.9 % N 0-2 Nucleated Red Blood Cells % 0 N Comp Metabolic Panel 03/02/2017 [facility] Sodium 136 mmol/L N 133-[address] [place] [address] [phone] Potassium 4.7 mmol/L N 3.5-5.0 Chloride 101 mmol/L N 101-111 Co2 Carbon Dioxide 30 mmol/L N 22-32 Anion Gap 5 mmol/L N 2-11 Glucose 98 mg/dL N 70-100 Blood Urea Nitrogen 13 mg/dL N 6-24 Creatinine 0.76 mg/dL N 0.51-0.95 BUN/Creatinine Ratio 17.1 N 8-20 Calcium 9.5 mg/dL N 8.6-10.3 Total Protein 6.9 g/dL N 6.4-8.9 Albumin 4.0 g/dL N 3.2-5.2 Globulin 2.9 g/dL N 2-4 Albumin/Globulin Ratio 1.4 N 1-3 Total Bilirubin 0.40 mg/dL N 0.2-1.0 Alkaline Phosphatase 47 U/L N 34-104 Alt 9 U/L N 7-52 Ast 14 U/L N 13-39 Egfr Non- 78.7 N >60 Egfr 101.2 N >60 16 Urine Culture And 02/10/2017 [facility] Urine Culture SEE RESULT 17, [address] [place] [address] [phone] Laboratory test 11/10/2016 [facility] TSH (Thyroid Stim 4.84 N [address] Horm) mcIU/mL -5.6 [place] [address] 0 [phone] [facility] Glucose 94 mg/dL N 70-1 [address] [place] [address] [phone] [facility] Triglycerides 133 mg/dL N 20 (Trig/Chol/HDL) [address] [place] [address] [phone] Cholesterol 198 mg/dL N 21 HDL Cholesterol 68.1 mg/dL N 22 LDL Cholesterol 103 mg/dL N [address] [facility] TSH (Thyroid 4.78 N 0.34- 5.60 24 test finding [address] Stim Horm) mcIU/[place] [address] [phone] Laboratory 04/20/2016 [facility] Surgical SEE RESULT 25, 26 test finding [address] Pathology BELOW [place], [place] [id number] [phone] CBC Auto Diff 02/18/2016 [facility] White Blood 5.1 10^3/uL N 3.5-10.[address] Count [place], [place] [id number] [phone] Red Blood Count 3.86 10^6/uL Low 4.0-5.4 Hemoglobin 12.8 g/dL N 12.0-16.0 Hematocrit 38 % N 35-47 Mean Corpuscular Volume 100 fL High 80-97 Mean Corpuscular Hemoglobin 33 pg High 27-31 Mean Corpuscular HGB Conc 33 g/dL N 31-36 Red Cell Distribution Width 14 % N 10.5-15 Platelet Count 262 10^3/uL N 150-450 Mean Platelet Volume 8 um3 N 7.4-10.4 Abs Neutrophils 2.9 10^3/uL N 1.5-7.7 Abs Lymphocytes 1.4 10^3/uL N 1.0-4.8 Abs Monocytes 0.5 10^3/uL N 0-0.8 Abs Eosinophils 0.2 10^3/uL N 0-0.6 Abs Basophils 0.1 10^3/uL N 0-0.2 Abs Nucleated RBC 0 10^3/uL N Granulocyte % 56.6 % N 38-83 Lymphocyte % 28.2 % N 25-47 Monocyte % 10.2 % High 1-9 Eosinophil % 3.6 % N 0-6 Basophil % 1.4 % N 0-2 Nucleated Red Blood Cells % 0 N Comp Metabolic Panel 02/18/2016 [facility] Sodium 135 mmol/L N 133-[address] [place] [address] [phone] Potassium 3.7 mmol/L N 3.5-5.0 Chloride 100 mmol/L Low 101-111 Co2 Carbon Dioxide 28 mmol/L N 22-32 Anion Gap 7 mmol/L N 2-11 Glucose 101 mg/dL High 70-100 Blood Urea Nitrogen 10 mg/dL N 6-24 Creatinine 0.78 mg/dL N 0.51-0.95 BUN/Creatinine Ratio 12.8 N 8-20 Calcium 9.6 mg/dL N 8.6-10.3 Total Protein 6.9 g/dL N 6.4-8.9 Albumin 4.1 g/dL N 3.2-5.2 Globulin 2.8 g/dL N 2-4 Albumin/Globulin Ratio 1.5 N 1-3 Total Bilirubin 0.30 mg/dL N 0.2-1.0 Alkaline Phosphatase 42 U/L N 34-104 Alt 15 U/L N 7-52 Ast 21 U/L N 13-39 Egfr Non- 76.7 N >60 Egfr 98.6 N >60 27 Laboratory test 10/11/2015 [facility] Urine Culture And SEE RESULT [address] [place] [address] [phone] Ua Routine 10/11/2015 [facility] Ua Specific [place] 1.015 Ua PH 5 Ua Color yellow Ua Appera clear Ua WBC trace Ua Protein negative Ua Glucose negative Ua Ketones negative Ua Bilirubin negative Ua Urobilinogen negative Ua Nitrite negative Ua Occult Blood positive Laboratory test 2015 [facility] Urine Culture And SEE RESULT [address] [place] [address] [phone] Ua Routine 2015 [facility] Ua Specific [place] 1.010 Ua PH 5 Ua Color yellow Ua Appera clear Ua WBC neg Ua Protein neg Ua Glucose neg Ua Ketones small Ua Bilirubin neg Ua Urobilinogen neg Ua Nitrite neg Ua Occult Blood small CBC No Diff 04/23/2015 [facility] White Blood 6.1 10^3/uL N 4.8-10.[address] [place] [address] [phone] Red Blood Count 3.71 10^6/uL Low 4.0-5.4 Hemoglobin 12.8 g/dL N 12.0-16.0 Hematocrit 38 % N 35-47 Mean Corpuscular Volume 103 fL High 80-97 Mean Corpuscular Hemoglobin 34 pg High 27-31 Mean Corpuscular HGB Conc 33 g/dL N 31-36 Red Cell Distribution Width 13 % N 10.5-15 Platelet Count 247 10^3/uL N 150-450 Mean Platelet Volume 8 um3 N 7.4-10.4 Comp Metabolic Panel 04/23/2015 [facility] Sodium 136 mmol/L N 133-[address] [place] [address] [phone] Potassium 4.1 mmol/L N 3.5-5.0 Chloride 100 mmol/L Low 101-111 Co2 Carbon Dioxide 28 mmol/L N 22-32 Anion Gap 8 mmol/L N 2-11 Glucose 83 mg/dL N 70-100 Blood Urea Nitrogen 12 mg/dL N 6-24 Creatinine 0.78 mg/dL N 0.51-0.95 BUN/Creatinine Ratio 15.4 N 8-20 Calcium 9.6 mg/dL N 8.6-10.3 Total Protein 6.4 g/dL N 6.4-8.9 Albumin 4.0 g/dL N 3.2-5.2 Globulin 2.4 g/dL N 2-4 Albumin/Globulin Ratio 1.7 N 1-3 Total Bilirubin 0.30 mg/dL N 0.2-1.0 Alkaline Phosphatase 46 U/L N 34-104 Alt 9 U/L N 7-52 Ast 14 U/L N 13-39 Egfr Non- 77.0 N >60 Egfr 99.0 N >60 30 Laboratory test 04/23/2015 [facility] Valproic Acid 98.0 g/mL N 50-[address] (Depakene) [place] [address] [phone] Hemoglobin A1c (Glyco HGB) 5.6 % N Less than 6.0 31 Lamotrigine (Lamictal) 12.4 g/mL N 2.5 - 15.0 32 CBC Auto Diff 02/17/2015 [facility] White Blood 5.4 10^3/uL N 4.8-10.[address] [place] [address] [phone] Red Blood Count 3.79 10^6/uL Low 4.0-5.4 Hemoglobin 13.1 g/dL N 12.0-16.0 Hematocrit 39 % N 35-47 Mean Corpuscular Volume 104 fL High 80-97 Mean Corpuscular Hemoglobin 35 pg High 27-31 Mean Corpuscular HGB Conc 33 g/dL N 31-36 Red Cell Distribution Width 13 % N 10.5-15 Platelet Count 266 10^3/uL N 150-450 Mean Platelet Volume 8 um3 N 7.4-10.4 Abs Neutrophils 2.5 10^3/uL N 1.5-7.7 Abs Lymphocytes 1.7 10^3/uL N 1.0-4.8 Abs Monocytes 0.8 10^3/uL N 0-0.8 Abs Eosinophils 0.3 10^3/uL N 0-0.6 Abs Basophils 0.1 10^3/uL N 0-0.2 Abs Nucleated RBC 0 10^3/uL N Granulocyte % 47.3 % N 38-83 Lymphocyte % 31.1 % N 25-47 Monocyte % 14.4 % High 1-9 Eosinophil % 6.1 % High 0-6 Basophil % 1.1 % N 0-2 Nucleated Red Blood Cells % 0.1 N Ua Routine 02/17/2015 [facility] Ua Specific [place] 1.010 Ua PH 5 Ua Color yellow Ua Appera clear Ua WBC negative Ua Protein negative Ua Glucose negative Ua Ketones small Ua Bilirubin small Ua Urobilinogen normal Ua Nitrite negative Ua Occult Blood NHT Laboratory test 02/17/2015 [facility] Cytology Non-Email Marketing Coordinator SEE RESULT [address] [place] [address] [phone] Ua And Culture 02/12/2015 [facility] Urine Culture And SEE RESULT [address] [place] [address] [phone] Urinalysis 02/12/2015 [facility] Urine Color Yellow N Profile [address] [place] [address] [phone] Urine Appearance Clear N Urine Specific [place] 1.008 Low 1.010-1.030 Urine pH 5.0 N 5-9 Urine Urobilinogen Negative N Negative Urine Ketones Negative N Negative Urine Protein Negative N Negative Urine Leukocytes Negative N Negative Urine Blood Negative N Negative Urine Nitrite Negative N Negative Urine Bilirubin Negative N Negative Urine Glucose Negative N Negative Ua Routine 02/12/2015 [facility] Ua Specific [place] 1.005 Ua PH 5 Ua Color yellow Ua Appera clear Ua WBC negative Ua Protein negative Ua Glucose negative Ua Ketones trace Ua Bilirubin small Ua Urobilinogen normal Ua Nitrite negative Ua Occult Blood negative CBC Auto Diff 01/29/2015 [facility] White Blood 6.5 10^3/uL N 4.8-10.[address] [place] [address] [phone] Red Blood Count 3.69 10^6/uL Low 4.0-5.4 Hemoglobin 12.7 g/dL N 12.0-16.0 Hematocrit 38 % N 35-47 Mean Corpuscular Volume 104 fL High 80-97 Mean Corpuscular Hemoglobin 35 pg High 27-31 Mean Corpuscular HGB Conc 33 g/dL N 31-36 Red Cell Distribution Width 13 % N 10.5-15 Platelet Count 306 10^3/uL N 150-450 Mean Platelet Volume 7 um3 Low 7.4-10.4 Abs Neutrophils 4.1 10^3/uL N 1.5-7.7 Abs Lymphocytes 1.3 10^3/uL N 1.0-4.8 Abs Monocytes 0.6 10^3/uL N 0-0.8 Abs Eosinophils 0.4 10^3/uL N 0-0.6 Abs Basophils 0.1 10^3/uL N 0-0.2 Abs Nucleated RBC 0 10^3/uL N Granulocyte % 63.4 % N 38-83 Lymphocyte % 20.5 % Low 25-47 Monocyte % 9.4 % High 1-9 Eosinophil % 5.5 % N 0-6 Basophil % 1.2 % N 0-2 Nucleated Red Blood Cells % 0 N Comp Metabolic Panel 01/29/2015 [facility] Sodium 135 mmol/L N 133-[address] [place] [address] [phone] Potassium 4.0 mmol/L N 3.5-5.0 Chloride 100 mmol/L Low 101-111 Co2 Carbon Dioxide 29 mmol/L N 22-32 Anion Gap 6 mmol/L N 2-11 Glucose 102 mg/dL High 70-100 Blood Urea Nitrogen 9 mg/dL N 6-24 Creatinine 0.78 mg/dL N 0.51-0.95 BUN/Creatinine Ratio 11.5 N 8-20 Calcium 9.4 mg/dL N 8.6-10.3 Total Protein 6.9 g/dL N 6.4-8.9 Albumin 4.1 g/dL N 3.2-5.2 Globulin 2.8 g/dL N 2-4 Albumin/Globulin Ratio 1.5 N 1-3 Total Bilirubin 0.30 mg/dL N 0.2-1.0 Alkaline Phosphatase 40 U/L N 34-104 Alt 9 U/L N 7-52 Ast 16 U/L N 13-39 Egfr Non- 77.0 N >60 Egfr 99.0 N >60 35 Laboratory test 01/29/2015 [facility] TSH (Thyroid 1.30 N 0.34 -5.[address] Stim Horm) ?IU/mL [place], [place] [id number] [phone] Laboratory test 12/24/2014 [facility] Rapid SEE RESULT [address] [place] [address] Antigen [phone] Urine Culture And 12/01/2014 [facility] Urine Culture (SEE NOTE ) [address] [place] [address] [phone] Ua Routine 12/01/2014 [facility] Ua Specific 1.020 [place] Ua PH 5 Ua Color yellow Ua Appera cloudy Ua WBC moderate Ua Protein negative Ua Glucose negative\\ Ua Ketones trace Ua Bilirubin trace Ua Urobilinogen normal Ua Nitrite negative Ua Occult Blood trace Lipid Profile 01/29/2014 [facility] Triglycerides 187 mg/dL N 38 (Trig/Chol/HDL) [address] [place] [address] [phone] Cholesterol 206 mg/dL N 39 HDL Cholesterol 60.6 mg/dL N 40 LDL Cholesterol 108 mg/dL N 41 Comp Metabolic Panel 01/29/2014 [facility] Sodium 124 mmol/L Low 133-[address] [place] [address] [phone] Potassium 3.9 mmol/L N 3.7-5.6 Chloride 90 mmol/L Low 101-111 Co2 Carbon Dioxide 26 mmol/L N 22-32 Anion Gap 8 mmol/L N 2-11 Glucose 82 mg/dL N 70-100 Blood Urea Nitrogen 6 mg/dL N 6-24 Creatinine 0.78 mg/dL N 0.51-0.95 BUN/Creatinine Ratio 7.7 Low 8-20 Calcium 9.2 mg/dL N 8.6-10.3 Total Protein 6.4 g/dL N 6.4-8.9 Albumin 3.9 g/dL N 3.2-5.2 Globulin 2.5 g/dL N 2-4 Albumin/Globulin Ratio 1.6 N 1-3 Total Bilirubin 0.50 mg/dL N 0.2-1.0 Alkaline Phosphatase 42 U/L N 34-104 Alt 16 U/L N 7-52 Ast 27 U/L N 13-39 Egfr Non- 77.3 N >60 Egfr 99.4 N >60 42 CBC With 01/29/2014 [facility] White Blood 4.9 10^3/uL N 4.8- 10.[address] [place] [address] [phone] Red Blood Count 3.68 10^6/uL Low 4.0-5.4 Hemoglobin 12.8 g/dL N 12.0-16.0 Hematocrit 36 % N 35-47 Mean Corpuscular Volume 99 fL High 80-97 Mean Corpuscular Hemoglobin 35 pg High 27-31 Mean Corpuscular HGB Conc 35 g/dL N 31-36 Red Cell Distribution Width 13 % N 10.5-15 Platelet Count 267 10^3/uL N 150-450 Mean Platelet Volume 7 um3 Low 7.4-10.4 Abs Neutrophils 2.9 10^3/uL N 1.5-7.7 Abs Lymphocytes 1.2 10^3/uL N 1.0-4.8 Abs Monocytes 0.6 10^3/uL N 0-0.8 Abs Eosinophils 0.2 10^3/uL N 0-0.6 Abs Basophils 0.1 10^3/uL N 0-0.2 Abs Nucleated RBC 0 10^3/uL N Neutrophil % 68 % N 38-83 Lymphocytes % 22 % Low 25-47 Monocytes % 10 % N 0-13 RBC Morphology Normal N Normal Laboratory test 01/29/2014 [facility] TSH (Thyroid 3.60 IU/mL N 0.34-5.[address] [place] [address] [facility]) [phone] CBC Auto Diff 06/12/2013 [facility] White Blood 5.8 4.8-10.[address] Count 10^3/[place] [address] [phone] Red Blood Count 3.76 10^6/uL Low 4.0-5.4 [...] Cells % 0.1 Comp Metabolic Panel 06/12/2013 [facility] Sodium 133 mmol/L 133-[address] [place] [address] [phone] Potassium 4.3 mmol/L 3.5-5.0 Chloride 97 mmol/L [...] Egfr Non- 75.3 >60 Egfr 96.9 >60 43 Laboratory test 08/19/2012 [facility] TSH (Thyroid 2.14 0.34- 5.[address] Stimulating miu/[place] [address] Horm) [phone] Free T4 0.96 ng/mL 0.61-1.24 Throat-Beta 07/12/2012 [facility] Throat Beta Strep (SEE [address] Culture NOTE) [place] [address] [phone] Lipid Profile 06/12/2012 [facility] Triglycerides 231 mg/dL High 40-2 (Trig/Chol/HDL) [address] 00 [place] [address] [phone] Cholesterol 202 mg/dL High Less than 200 45 HDL Cholesterol 75 mg/dL High 40-60 46 Cholesterol/HDL Ratio 2.7 AVERAGE 1-4.44 LDL Cholesterol 80.8 mg/dL Less Than 100 47 Comp Metabolic Panel 06/12/2012 [facility] Sodium 137 mmol/L 133-[address] [place] [address] [phone] Potassium 4.4 mmol/L 3.5-5.0 Chloride 101 mmol/L 101-111 Co2 Carbon Dioxide 29.0 mmol/L 22-32 Anion Gap 7.0 mmol/L 2-11 Glucose 91 mg/dL 70-100 Blood Urea Nitrogen 10 mg/dL 6-24 Creatinine 0.80 mg/dL 0.50-1.40 BUN/Creatinine Ratio 12.5 8-20 Calcium 9.5 mg/dL 8.1-9.9 Total Protein 6.5 GM/DL 6.2-8.1 Albumin 3.6 GM/DL 3.6-5.4 Globulin 2.9 GM/DL 2-4 Albumin/Globulin Ratio 1.2 1-3 Total Bilirubin 0.4 mg/dL 0.1-1.0 48 Alkaline Phosphatase 54 U/L 30-110 Alt 15 U/L 14-54 Ast 19 U/L 12-42 Egfr Non- 75.6 >60 Egfr 97.3 >60 49 Laboratory 06/12/2012 [facility] TSH (Thyroid 8.28 High 0.34- 5.60 test finding [address] Stimulating MIU/[place] [address] Horm) [phone] Free T4 0.68 NG/ML 0.61-1.24 Vitamin D 06/12/2012 [facility] Vitamin D 22 pg/mL 18-78 50 1,[address] 1,25-Dihydroxy Vitamin D,2 [place] [address] [phone] Vitamin D, 25 06/12/2012 [facility] 25-Hydroxy Vitamin <4.0 ng/ mL Hydroxy [address] D2 [place] [address] [phone] 25-Hydroxy Vitamin D3 49 ng/mL 25-Hydroxy Vitamin D Total 49 ng/mL 51 Ua Routine 06/05/2012 [facility] Ua Specific [place] 1.010 Ua PH 6 Ua Color yellow Ua Appera clear Ua WBC neg Ua Protein neg Ua Glucose neg Ua Ketones neg Ua Bilirubin neg Ua Urobilinogen neg Ua Nitrite neg Ua Occult Blood non hemo trace Surgical 03/21/2012 [facility] Surgical [address] Pathology <SEE NOTE> [place] [address] [phone] Laboratory 12/22/2011 [facility] Surgical [address] Pathology <SEE NOTE> [place] [id number] [phone] Comp Metabolic 12/22/2011 [facility] Sodium 130 mmol/L Low [address]14 [place] [address] 0 [phone] Potassium 4.6 mmol/L 3.5-5.0 Chloride 94 mmol/L Low 101-111 Co2 (Carbon Dioxide) 27.0 mmol/L 22-32 Anion Gap 9.0 mmol/L 2-11 54 Glucose 107 mg/dL High 70-100 BUN 4 mg/dL Low 6-24 Creatinine 0.9 mg/dL 0.50-1.40 One Over Creatinine 1.11 BUN/Creatinine Ratio 4.4 Low 8-20 Calcium 9.7 mg/dL 8.1-9.9 Total Protein 6.6 GM/DL 6.2-8.1 Albumin 3.9 GM/DL 3.6-5.4 Globulin 2.7 GM/DL 2-4 Albumin/Globulin Ratio 1.4 1-3 Bilirubin Total 0.4 mg/dL 0.4-1.5 55 Alkaline Phosphatase 52 U/L 30-110 Alt (SGPT) 25 U/L 14-54 Ast (Sgot) 28 U/L 12-42 eGFR Non- 66.0 > 60 eGFR 84.9 > 60 56 Laboratory test 12/22/2011 [facility] C Reactive 0.7 mg/dL High Less Than finding DRIVE Protein 0.5 [place], [place] [id number] [phone] Laboratory test 12/17/2011 [facility] PTT (Aptt) 28.0 SEC 25.1-38.[address] [place] [address] [phone] BNP Evaluatr 50.0 pg/mL 0-100 Comp Metabolic Panel 12/17/2011 [facility] Sodium 131 mmol/L Low 135-[address] [place] [address] [phone] Potassium 3.8 mmol/L 3.5-5.0 Chloride 96 mmol/L Low 101-111 Co2 (Carbon Dioxide) 26.0 mmol/L 22-32 Anion Gap 9.0 mmol/L 2-11 57 Glucose 96 mg/dL 70-100 BUN 7 mg/dL 6-24 Creatinine 0.7 mg/dL 0.50-1.40 One Over Creatinine 1.42 BUN/Creatinine Ratio 10.0 8-20 Calcium 9.5 mg/dL 8.1-9.9 Total Protein 7.0 GM/DL 6.2-8.1 Albumin 3.7 GM/DL 3.6-5.4 Globulin 3.3 GM/DL 2-4 Albumin/Globulin Ratio 1.1 1-3 Bilirubin Total 0.7 mg/dL 0.4-1.5 58 Alkaline Phosphatase 44 U/L 30-110 Alt (SGPT) 16 U/L 14-54 Ast (Sgot) 22 U/L 12-42 eGFR Non- 88.2 > 60 eGFR 113.5 > 60 59 CBC Auto Diff 12/17/2011 [facility] White Blood 5.9 CUMM 4.8- 10.[address] [place] [address] [phone] Red Cell Count 3.58 CUMM Low 4.2-5.4 [...] Eosinophils 0.4 0-0.6 Abs Basophils 0.1 0-0.2 Blood Culture 12/17/2011 [facility] M <SEE [address] NOTE> [place] [address] [phone] Protime 12/17/2011 [facility] Inr 0.81 Low 0.88-[address]13 [place] [address] [phone] Protime 9.6 SEC Low 10.3-13.5 62 Laboratory test 10/30/2011 [facility] TSH 3.95 MIU/ML 0.34- 5.60 finding [address] [place] [address] [phone] Thyroxine Free 0.80 ng/dL 0.61-1.24 Laboratory test 09/15/2011 [facility] TSH 6.53 MIU/ML High 0.34-5.60 finding [address] [place] [address] [phone] Thyroxine Free 0.71 ng/dL 0.61-1.24 Laboratory test 08/01/2011 [facility] Thyroxine Free 0.74 ng/dL 0.61-1.24 finding [address] [place] [address] [phone] TSH 6.88 MIU/ML High 0.34-5.60 Laboratory test 06/02/2011 [facility] TSH 12.98 MIU/ML High 0.34-5.60 finding [address] [place] [address] [phone] Comp Metabolic 06/02/2011 [facility] Sodium 134 mmol/L Low 135 -145 Panel [address] [place] [address] [phone] Potassium 4.5 mmol/L 3.5-5.0 Chloride 101 mmol/L 101-111 Co2 (Carbon Dioxide) 27.0 mmol/L 22-32 Anion Gap 6.0 mmol/L 2-11 63 Glucose 85 mg/dL 70-100 BUN 9 mg/dL 6-24 Creatinine 0.8 mg/dL 0.50-1.40 One Over Creatinine 1.25 BUN/Creatinine Ratio 11.3 8-20 Calcium 9.6 mg/dL 8.1-9.9 Total Protein 6.2 GM/DL 6.2-8.1 Albumin 3.6 GM/DL 3.6-5.4 Globulin 2.6 GM/DL 2-4 Albumin/Globulin Ratio 1.4 1-3 Bilirubin Total 0.4 mg/dL 0.4-1.5 64 Alkaline Phosphatase 43 U/L 30-110 Alt (SGPT) 13 U/L Low 14-54 Ast (Sgot) 20 U/L 12-42 eGFR Non- 75.9 > 60 eGFR 97.6 > 60 65 Lipid Profile 06/02/2011 [facility] Triglyceride 125 mg/dL 40 -200 (Trig/Chol/HDL) [address] [place] [address] [phone] Cholesterol 186 mg/dL Less Than 200 66 High Density Lipoprotein 87 mg/dL High 40-60 67 Low Density Lipoprotein 74 mg/dL Less Than 100 68 Cholesterol/HDL Ratio 2.14 AVERAGE 1-4.44 Laboratory test 05/24/2011 [facility] Cytology <SEE [address] NOTE> [place] [address] [phone] Comp Metabolic 05/19/2011 [facility] Sodium 135 mmol/L 135-[address] [place] [address] [phone] Potassium 4.9 mmol/L 3.5-5.0 Chloride 101 mmol/L 101-111 Co2 (Carbon Dioxide) 28.0 mmol/L 22-32 Anion Gap 6.0 mmol/L 2-11 70 Glucose 96 mg/dL 70-100 BUN 8 mg/dL 6-24 Creatinine 0.8 mg/dL 0.50-1.40 One Over Creatinine 1.25 BUN/Creatinine Ratio 10.0 8-20 Calcium 9.3 mg/dL 8.1-9.9 Total Protein 6.3 GM/DL 6.2-8.1 Albumin 3.4 GM/DL Low 3.6-5.4 Globulin 2.9 GM/DL 2-4 Albumin/Globulin Ratio 1.2 1-3 Bilirubin Total 0.3 mg/dL Low 0.4-1.5 71 Alkaline Phosphatase 43 U/L 30-110 Alt (SGPT) 11 U/L Low 14-54 Ast (Sgot) 19 U/L 12-42 eGFR Non- 75.9 > 60 eGFR 97.6 > 60 72 Laboratory test 05/05/2011 [facility] Osmolality 284 [phone] [phone] [place] [address] [phone] Basic Metabolic 05/05/2011 [facility] Sodium 128 mmol/L Low 135-145 Panel [address] [place] [address] [phone] Potassium 4.1 mmol/L 3.5-5.0 Chloride 89 mmol/L Low 101-111 Co2 (Carbon Dioxide) 31.0 mmol/L 22-32 Anion Gap 8.0 mmol/L 2-11 73 Glucose 94 mg/dL 70-100 BUN 9 mg/dL 6-24 Creatinine 0.8 mg/dL 0.50-1.40 One Over Creatinine 1.25 BUN/Creatinine Ratio 11.3 8-20 Calcium 10.0 mg/dL High 8.1-9.9 eGFR Non- 75.9 > 60 eGFR 97.6 > 60 74 Basic Metabolic 04/20/2011 [facility] Sodium 131 mmol/L Low 135-145 Panel [address] [place] [address] [phone] Potassium 3.9 mmol/L 3.5-5.0 Chloride 93 mmol/L Low 101-111 Co2 (Carbon Dioxide) 32.0 mmol/L 22-32 Anion Gap 6.0 mmol/L 2-11 75 Glucose 109 mg/dL High 70-100 BUN 12 mg/dL 6-24 Creatinine 1.0 mg/dL 0.50-1.40 One Over Creatinine 1.00 BUN/Creatinine Ratio 12.0 8-20 Calcium 8.9 mg/dL 8.1-9.9 eGFR Non- 58.7 > 60 eGFR 75.5 > 60 76 Comp Metabolic Panel 04/06/2011 [facility] Sodium 131 mmol/L Low 135-145 [address] [place] [address] [phone] Potassium 4.7 mmol/L 3.5-5.0 Chloride 95 mmol/L Low 101-111 Co2 (Carbon Dioxide) 29.0 mmol/L 22-32 Anion Gap 7.0 mmol/L 2-11 77 Glucose 111 mg/dL High 70-100 BUN 5 mg/dL Low 6-24 Creatinine 0.9 mg/dL 0.50-1.40 One Over Creatinine 1.11 BUN/Creatinine Ratio 5.6 Low 8-20 Calcium 9.6 mg/dL 8.1-9.9 Total Protein 6.4 GM/DL 6.2-8.1 Albumin 3.7 GM/DL 3.6-5.4 Globulin 2.7 GM/DL 2-4 Albumin/Globulin Ratio 1.4 1-3 Bilirubin Total 0.5 mg/dL 0.4-1.5 78 Alkaline Phosphatase 43 U/L 30-110 Alt (SGPT) 14 U/L 14-54 Ast (Sgot) 24 U/L 12-42 eGFR Non- 66.3 > 60 eGFR 85.2 > 60 79 1 [id number] 2 SEE RESULT BELOW Name: AUTUMN JOHNSON : [address]: Sangita Pierson NP Acct: [id number] Unit: [id number] AGE: 57 Location: [facility] Re05/24/18 SEX: F Status: REG REF SPEC: [id number] CAROL: 05/24/18-[address]: Sangita Pierson NP REQ: [id number] RECD: 05/24/18 STATUS: COMP _ SOURCE: URINE SPDESC: ORDERED: Urine Culture COMMENTS: [id number] Urine Source: Random Procedure Result Reported Site Urine Culture Final 05/26/18- 816 ML No Growth (<1,000 CFU/mL) * ML - Main Lab . END OF REPORT DEPARTMENT OF PATHOLOGY, [address] [place] [address] Lenard Woodard M.D. Director [facility] # [id number] Normal Range 180 to 914 Indeterminate Range 145 to 180 Deficient Range <145 4 ADDITIONAL INFORMATION This test was developed and its performance characteristics determined by [facility] in a manner consistent with CLIA requirements. This test has not been cleared or approved by the [place]. Food and Drug Administration. Test Performed by: [facility] [address] [place] [id number] 5 Parole Director: [id number] 7 SEE RESULT BELOW Name: AUTUMN JOHNSON : [address]: Lakisha Pope MD Acct: [id number] Unit: [id number] AGE: 57 Location: [facility] Re04/07/18 SEX: F Status: DEP ER SPEC: [id number] CAROL: 04/07/[address] [facility] [address]: Lakisha Pope MD REQ: [id number] RECD: 04/07/18 STATUS: SCHUYLER MOODY DR: Sangita Pierson ANIMAL TECH _ SOURCE: URINE SPDESC: ORDERED: Urine Culture COMMENTS: [id number] Procedure Result Reported Site Urine Culture Final 04/10/18- 0740 ML Organism 1 STREPTOCOCCUS ANGINOSUS [place] Count 75-100,000 (Many) CFU/ML 1. STREPTOCOCCUS ANGINOSUS M.I.C. RX --------- ------ Ampicillin <=0.06 S Penicillin <=0.03 S Meropenem <=0.06 S Cefepime <=0.25 S * Cefotaxime <=0.25 S Ceftriaxone <=0.25 S Levofloxacin 0.5 S Tetracycline >4 R Vancomycin 0.5 S * - [facility] . END OF REPORT DEPARTMENT OF PATHOLOGY, [address] [place] [address] Lenard Woodard M.D. Director [facility] # [id number] 8 Because ethnic data is not always [...] 5 Kidney failure <15 (or dialysis) 9 [id number] 10 SEE RESULT BELOW Name: AUTUMN JOHNSON : [address]: Marilee Bauer MD Acct: [id number] Unit: [id number] AGE: 56 Location: [facility] Re04/06/17 SEX: F Status: DEP REF SPEC: [id number] CAROL: 04/06/17- SUBM DR: Marilee Bauer MD REQ: [id number] RECD: 04/06/17-1148 STATUS: ANJEL MOODY DR: Sangita Pierson ANIMAL TECH _ ORDERED: LEVEL 4 COMMENTS: [id number] FINAL DIAGNOSIS Colon, cecum, biopsy: -- Tubular [...] performed at Main Lab DEPARTMENT OF PATHOLOGY, [address] [place] [address] Lenard Woodard M.D. Director [facility] # [id number] 11 Because ethnic data is not always readily [...] 15-29 5 Kidney failure <15 (or dialysis) 12 Desirable <150 Borderline high 150-199 High 200-499 Very High >500 13 Desirable <200 Borderline high 200-239 High >239 14 Low <40 Desirable: 40-60 High: >60 15 Desirable: <100 mg/dL Near Optimal: 100-129 mg/dL Borderline High: 130-159 mg/dL High: 160-189 mg/dL Very High: >189 mg/dL 16 Because ethnic data is not always readily [...] 15-29 5 Kidney failure <15 (or dialysis) 17 [id number] SEE RESULT BELOW Name: AUTUMN JOHNSON [place] : [address]: Carmen Carrillo Acct: [id number] Unit: [id number] AGE: 56 Location: [facility] Re02/10/17 SEX: F Status: DEP ER SPEC: [id number] CAROL: 02/10/[address]: Carmen Roberson DO REQ: [id number] RECD: 02/10/17 STATUS: SCHUYLER MOODY DR: Sangita Pierson ANIMAL TECH _ SOURCE: URINE SPDESC: ORDERED: Urine Culture COMMENTS: [id number] Procedure Result Reported Site Urine Culture Final 02/12/17- 0759 ML Organism 1 ESCHERICHIA COLI [place] Count 75-100,000 (Many) CFU/ML 1. ESCHERICHIA COLI [...] antibiotic reporting. * ML - MAIN LAB ([facility]) . END OF REPORT * ML=Testing performed at Main Lab DEPARTMENT OF PATHOLOGY, [address] [place] [address] Lenard Woodard M.D. Director [facility] # [id number] FASTING 10 HOUR 20 Desirable <150 Borderline high 150-199 High 200-499 Very High >500 21 Desirable <200 Borderline high 200-239 High >239 22 Low <40 Desirable: 40-60 High: >60 23 Desirable: <100 mg/dL Near Optimal: 100-129 mg/dL Borderline High: 130-159 mg/dL High: 160-189 mg/dL Very High: >189 mg/dL 24 FASTING 10 HOUR 25 [id number] 26 SEE RESULT BELOW Name: AUTUMN JOHNSON : [address]: Wes Neff MD Acct: [id number] Unit: [id number] AGE: 55 Location: [facility] Re04/20/16 SEX: F Status: REG REF SPEC: [id number] CAROL: 04/20/16-[address] [facility] [address]: Wes Neff MD REQ: [id number] RECD: 04/20/16 STATUS: ANJEL MOODY DR: Sangita Pierson ANIMAL TECH _ ORDERED: LEVEL IV COMMENTS: [id number] FINAL DIAGNOSIS Stomach, polyps, biopsies: -- Hyperplastic [...] Signed (signature on file) Lenard Woodard MD 1211 END OF REPORT * ML=Testing performed at Main Lab DEPARTMENT OF PATHOLOGY, [address] [place] [address] Lenard Woodard M.D. Director [facility] # [id number] 27 Because ethnic data is not always [...] [address]: Sangita Pierson NP Acct: [id number] Unit: [id number] AGE: 55 Location: [facility] [facility] SEX: F Status: REG REF SPEC: [id number] CAROL: 10/11/151225 DEZ DR: Sangita Pierson NP REQ: [id number] RECD: 10/11/15 STATUS: COMP _ SOURCE: URINE SPDESC: ORDERED: Urine Culture Procedure Result Reported Site Urine Culture Final 10/13/15857 ML Organism 1 NORMAL VENU [place] Count 1-10,000 (Few) CFU/ML * ML - MAIN LAB ([facility]) . END OF REPORT * ML=Testing performed at Main Lab DEPARTMENT OF PATHOLOGY, [address] [place] [address] Lenard Woodard M.D. Director [facility] # [id number] 29 SEE RESULT BELOW Name: AUTUMN JOHNSON Hayder : [address]: Sangita Pierson NP Acct: [id number] Unit: [id number] AGE: 55 Location: [facility] Re06/22/15 SEX: F Status: REG REF SPEC: [id number] CAROL: 06/22/15-[address]: Sangita Pierson NP REQ: [id number] RECD: 06/22/15 STATUS: COMP _ SOURCE: URINE SPDESC: ORDERED: Urine Culture Procedure Result Verified Site Urine Culture Final 06/24/15- 1031 ML No Growth Day 2 (<1,000 CFU/mL) * ML - MAIN LAB ([facility]) . END OF REPORT * ML=Testing performed at Main Lab DEPARTMENT OF PATHOLOGY, [address] [place] [address] Lenard Woodard M.D. Director [facility] # [id number] 30 Because ethnic data is not always readily [...] 15-29 5 Kidney failure <15 (or dialysis) 31 Therapeutic target for the treatment of diabetes Mellitus patients is <7% HBA1C, and in selective patients <6.0%.Please refer to [place] [employer] Diabetic care guidelines for further information. 32 Test Performed by: [address] [address] Professional Organizer: Avery Kasper II, M.D., Ph.D. 33 SEE RESULT BELOW Name: AUTUMN JOHNSON : [address]: Sangita Pierson NP Acct: [id number] Unit: [id number] AGE: 54 Location: [facility] Re02/17/15 SEX: F Status: REG REF SPEC: [id number] CAROL: 02/17/[address]: Sangita Pierson NP REQ: [id number] RECD: 02/17/15 STATUS: SOUT _ ORDERED: THIN PREP NON G FINAL DIAGNOSIS Urine, voided: Negative for malignant cells. URINE VOID CLINICAL HISTORY Hematuria GROSS DESCRIPTION 7.5 mls of clear yellow voided urine. Signed (signature on file) Prachi Kevin MD 0949 END OF REPORT * ML=Testing performed at Main Lab DEPARTMENT OF PATHOLOGY, [address] [place] [address] Lenard Woodard M.D. Director [facility] # [id number] 34 SEE RESULT BELOW Name: DRAKEAUTUMN : [address]: Sangita Pierson NP Acct: [id number] Unit: [id number] AGE: 54 Location: [facility] Re02/12/15 SEX: F Status: REG REF SPEC: [id number] CAROL: 02/12/15-[address]: Sangita Pierson NP REQ: [id number] RECD: 02/12/15 STATUS: COMP _ SOURCE: URINE SPDESC: ORDERED: Urine Culture Procedure Result Verified Site Urine Culture Final 02/14/15- 0834 ML No Growth Day 2 (<1,000 CFU/mL) * ML - MAIN LAB ([facility]) . END OF REPORT * ML=Testing performed at Main Lab DEPARTMENT OF PATHOLOGY, [address] [place] [address] Lenard Woodard M.D. Director [facility] # [id number] 35 Because ethnic data is not always [...] 5 Kidney failure <15 (or dialysis) 36 SEE RESULT BELOW Name: AUTUMN JOHNSON : [address]: Salbador Horton NP Acct: [id number] Unit: [id number] AGE: 54 Location: [facility] Re12/24/14 SEX: F Status: REG REF SPEC: [id number] CAROL: 12/24/14-[address]: Salbador Horton NP REQ: [id number] RECD: 12/24/14 STATUS: COMP _ SOURCE: [facility]: ORDERED: Rapid Flu A B Procedure [...] is desired. * ML - MAIN LAB ([facility]) . END OF REPORT * ML=Testing performed at Main Lab DEPARTMENT OF PATHOLOGY, [facility] [employer] [place], [place] [address] Lenard Woodard M.D. Director [facility] # [id number] 37 RUN DATE: 12/03/14 [facility] LAB LIVE PAGE 1 RUN TIME: [address] [facility] [employer] [place], [place] [address] Specimen Inquiry Name: AUTUMN JOHNSON : [address]: Sangita Pierson NP Acct: [id number] Unit: [id number] AGE: 54 Location: [facility] Re12/01/14 SEX: F Status: REG REF SPEC: [id number] CAROL: 12/01/14-[address]: Sangita Pierson NP REQ: [id number] RECD: 12/01/14-894 STATUS: COMP _ SOURCE: URINE SPDESC: ORDERED: Urine Culture QUERIES: Provider Requisition # [id number] Procedure Result Verified Site Urine Culture Final 12/03/14- 1156 ML No Growth Day 2 (<1,000 CFU/mL) * ML - MAIN LAB ([facility]) . END OF REPORT * ML=Testing performed at Main Lab DEPARTMENT OF PATHOLOGY, [address] [place] [address] Lenard Woodard M.D. Director [facility] # [id number] 38 Desirable <150 Borderline high 150-199 High 200-499 Very High >500 39 Desirable <200 Borderline high 200-239 High >239 40 Low <40 Desirable: 40-60 High: >60 41 Desirable <100 Near Optimal 100-129 Borderline high 130-159 High 160-189 Very High >189 42 Because ethnic data is not always readily [...] 15-29 5 Kidney failure <15 (or dialysis) 43 Because ethnic data is not always readily [...] 15-29 5 Kidney failure <15 (or dialysis) 44 RUN DATE: 07/14/12 [facility] LAB LIVE PAGE 1 RUN TIME: [address] [place], [place] [address] Specimen Inquiry Name: AUTUMN JOHNSON : [address]: Juventino Slade DO Acct: [id number] Unit: [id number] AGE: 52 Location: [facility] Re07/12/12 SEX: F Status: DEP ER SPEC: [id number] CAROL: 07/12/12-[address]: Cayla Breen PA REQ: [id number] RECD: 07/12/121694 STATUS: COMP ROLAHR DR: Sangita Pierson DO, Martin K. _ SOURCE: THROAT SPDESC: ORDERED: Throat Beta Str Procedure Result Verified Site Throat Beta Strep Culture Final 07/14/12- 1001 ML Negative For Group A Beta Streptococcus END OF REPORT * ML=Testing performed at Main Lab DEPARTMENT OF PATHOLOGY, [address] [place] [address] Lenard Woodard M.D. Director [facility] Permit #[id number] 45 Desirable: Less than 200 MG/DL Borderline-High Risk: 200-239 MG/DL High-Risk: 240 MG/DL and over 46 HDL Interpretation: Undesirable: High Risk: Less than 40 MG/DL Desirable: Low Risk: Greater than 60 MG/DL 47 LDL Interpretation: Low Risk Optimal Level: LDL Less than 100 MG/DL Near or Above Optimal: LDL 100-129 MG/DL Borderline High Risk: LDL 130-159 MG/DL High Risk: LDL 160-189 MG/DL Very High Risk: LDL Greater than 189 MG/DL 48 A metabolite of Naproxen, O-desmethylnaproxen, has been shown to interfere with the Jendrassik-Whit method for measuring total bilirubin. Samples from patients who have taken Naproxen have shown spurious elevation in total bilirubin levels. 49 Because ethnic data is not always readily [...] 15-29 5 Kidney failure <15 (or dialysis) 50 Test Performed by: [facility] [address] [place] [address] Professional Organizer: Renan Swan III, M.D. R 51 -- REFERENCE VALUE -- 25-HYDROXY D TOTAL (D2+D3) Optimum levels in the normal population are 25-80 Test Performed by: [facility] [address] [place] [address] Professional Organizer: Renan Swan III, M.D. R 52 ---- RUN DATE: 03/22/12 [facility] NMI LIVE PAGE 1 RUN TIME: 1330 Specimen Inquiry RUN USER: INTERFACE -- Name: AUTUMN JOHNSON Accpj#: [id number] Status: REG REF Re03/21/12 Age/Sex: 51/F Unit#: [id number] Location: [address] [place] [address]. : 60 -- Specimen: [id number] SOUT Spec Date:03/21/12- [facility] Dr: Wes herbert MD Spec Type: SURGICAL P Received:03/21/12-1242 Copies to: Sangita Pierson [facility] SPECIMEN 1) HEPATIC FLEXURE BIOPSY 2) DESCENDING [...] malignancy. Signed Electronically by: PJ INIGUEZ 03/22/12 1330 -- -- DEPARTMENT OF PATHOLOGY, [address] [place] [address] [facility] Permit #[id number] Lenard Woodard M.D. Director Pj Iniguez M.D. [employer] Operator Dir mohit -- 53 ---- RUN DATE: 12/26/11 [facility] NMI LIVE PAGE 1 RUN TIME: 1405 Specimen Inquiry RUN USER: INTERFACE -- Name: AUTUMN JOHNSON Status: REG REF Re12/22/11 Age/Sex: 51/F Unit#: [id number] Location: [facility]. : 60 -- Specimen: [id number] [facility] Spec Date:12/22/11 [facility] Dr: Sangita Pierson [facility] Spec Type: SURGICAL P Received:12/25/11 Copies to: [...] 12/26/11 1403 -- -- DEPARTMENT OF PATHOLOGY, [address] [place] [address] [facility] Permit #[id number] Lenard Woodard M.D. Director Pj Iniguez M.D. [employer] Operator Dir mohit -- 54 Anion gap measurement may be of limited value in the presence of any alkalosis, especially in a combined acid base disorder. . 55 A metabolite of Naproxen, O-desmethylnaproxen, has been shown to interfere with the Jendrassik-Wilbur method for measuring total bilirubin. Samples from patients who have taken Naproxen have shown spurious elevation in total bilirubin levels. 56 Because ethnic data is not always readily [...] 15-29 5 Kidney failure <15 (or dialysis) 57 Anion gap measurement may be of limited value in the presence of any alkalosis, especially in a combined acid base disorder. . 58 A metabolite of Naproxen, O-desmethylnaproxen, has been shown to interfere with the Jendrassik-Wilbur method for measuring total bilirubin. Samples from patients who have taken Naproxen have shown spurious elevation in total bilirubin levels. 59 Because ethnic data is not always readily [...] 15-29 5 Kidney failure <15 (or dialysis) 60 RUN DATE: 12/22/11 [facility] NMI LIVE PAGE 1 RUN TIME: 820 Specimen Inquiry RUN USER: INTERFACE Name: AUTUMN JOHNSON Status: IZA ER Re12/17/11 Age/Sex: 51/F Unit#: [id number] Location: ED : 60 SPEC #: [id number] CAROL: 12/17/11 STATUS: [place] REQ #: [id number] RECD: 12/17/[address]: [facility] SOURCE: BLOOD ENTR: 12/17/11-[address]: Sangita Lua [facility]: BLOOD,VENO ORDERED: BLOOD CULTURE ACT WKST: 12/18/11 #1 Procedure Result Verified Site > AEROBIC CULTURE BOTTLE Final 12/22/11820 ML NO GROWTH AFTER 5 DAYS > ANAEROBIC CULTURE BOTTLE Final 12/22/11820 ML NO GROWTH AFTER 5 DAYS - [facility] Permit #[id number] [address] [place] [address] DEPARTMENT OF PATHOLOGY, [address] [place] [address] [facility] Permit #[id number] Mickie Topete M.D. Distribution Sales Manager 61 Recommended INR for Patients on Oral Anticoagulants Prophylaxis 2.0 - 3.0 Treatment of thrombosis 2.0 - 3.0 Prevention of embolism 2.0 - 3.0 Prevention of embolism from prosthetic heart valves 2.5 - 3.5 62 DIAGNOSIS,TREATMENT,AND THERAPY MUST BE BASED ON THE INR VALUE ALONE. 63 Anion gap measurement may be of limited value in the presence of any alkalosis, especially in a combined acid base disorder. . 64 A metabolite of Naproxen, O-desmethylnaproxen, has been shown to interfere with the Jendrassik-Whit method for measuring total bilirubin. Samples from patients who have taken Naproxen have shown spurious elevation in total bilirubin levels. 65 Because ethnic data is not always readily [...] 15-29 5 Kidney failure <15 (or dialysis) 66 CHOLESTEROL INTERPRETATION: Desirable: Less than 200 MG/DL Borderline-High Risk: 200-239 MG/DL High-Risk: 240 MG/DL and over 67 HDL INTERPRETATION: Undesirable: High Risk: Less than 40 MG/DL Desirable: Low Risk: Greater than 60 MG/DL 68 LDL INTERPRETATION: Low Risk Optimal Level: LDL Less than 100 MG/DL Near or Above Optimal: LDL 100-129 MG/DL Borderline High Risk: LDL 130-159 MG/DL High Risk: LDL 160-189 MG/DL Very High Risk: LDL Greater than 189 MG/DL 69 ---- RUN DATE: 05/25/11 [facility] NMI LIVE PAGE 1 RUN TIME: 1606 Specimen Inquiry RUN USER: INTERFACE -- Name: AUTUMN JOHNSON Accpj#: [id number] Status: REG REF Re05/24/11 Age/Sex: 50/F Unit#: [id number] Location: [facility] : 60 -- Specimen: [id number] SOUT Spec Date: 05/24/[address]: Sangita del toro [facility] Spec Type: CYTOLOGY Received: 05/25/11 Copies to: SOURCE ECTOCERVICAL/ENDOCERVICAL Thin Prep with Reflex HPV Test PATIENT INFORMATION ACTUAL COLLECTION DATE: 05/24/11 ? No POST MENOPAUSAL? Yes HYSTERECTOMY? No DATE OF PRIOR SPECIMEN: 03/18/10 ADEQUACY OF SPECIMEN Satisfactory for evaluation * Transformation zone component identified * DIAGNOSIS NEGATIVE FOR INTRAEPITHELIAL LESION OR MALIGNANCY * This Pap test was evaluated with the assistance of the Channel IQPrep Pap Test Imaging System. The Pap Smear [...] years. Initial evaluation performed by Reymundo DEL VALLE([facility]) 05/25/11 Final Interpretation electronically signed by: Reymundo DEL VALLE([facility]) 05/25/11 1606 -- -- DEPARTMENT OF PATHOLOGY, [address] [place] [address] [facility] Permit #[id number] Lenard Woodard M.D. Director Pj Iniguez M.D. [employer] Operator Dir mohit -- 70 Anion gap measurement may be of limited value in the presence of any alkalosis, especially in a combined acid base disorder. . 71 A metabolite of Naproxen, O-desmethylnaproxen, has been shown to interfere with the Jendrassik-Whit method for measuring total bilirubin. Samples from patients who have taken Naproxen have shown spurious elevation in total bilirubin levels. 72 Because ethnic data is not always readily [...] 15-29 5 Kidney failure <15 (or dialysis) 73 Anion gap measurement may be of limited value in the presence of any alkalosis, especially in a combined acid base disorder. . 74 Because ethnic data is not always readily [...] 15-29 5 Kidney failure <15 (or dialysis) 75 Anion gap measurement may be of limited value in the presence of any alkalosis, especially in a combined acid base disorder. . 76 Because ethnic data is not always readily [...] 15-29 5 Kidney failure <15 (or dialysis) 77 Anion gap measurement may be of limited value in the presence of any alkalosis, especially in a combined acid base disorder. . 78 A metabolite of Naproxen, O-desmethylnaproxen, has been shown to interfere with the Jendrassik-Whit method for measuring total bilirubin. Samples from patients who have taken Naproxen have shown spurious elevation in total bilirubin levels. 79 Because ethnic data is not always readily [...] Kidney failure <15 (or dialysis) Procedures Date Code Description Status 08/30/2017 79780894 Mammogram Completed 04/13/2017 [id number] Mammogram Completed 04/06/2017 52992881 Colonoscopy Completed 04/06/2017 61299 Colonoscopy Flexible Remove Tumor/Polyp/Lesion Snare Completed Technique 04/06/2017 47427 Moderate Sedation Services; Same Phys Intl 15 Mins; PT Completed >=5 Years 04/06/2017 93604 Moderate Sedation Services; Same Phys Each Additional Completed 15 Mins 07/29/2015 [id number] Bone Mineral Density Test Completed 07/29/2015 72031317 Mammogram Completed 02/12/2015 39578 ECHO Transthorasic Realtime 2D W Doppler & Color Flow Completed Hosp 02/13/2014 [id number] Mammogram Completed 12/26/2013 38508 ECHO Transthorasic Realtime 2D W Doppler & Color Flow Completed Hosp 06/24/2012 [id number] Mammogram Completed 03/22/2012 06482 ECHO Transthoracic, Real-Time 2D With Doppler And Completed Color Flow 03/21/2012 62293086 Colonoscopy Completed 12/22/2011 77560 Biopsy Skin Lesion Single Completed 06/30/2011 083276606 Bone Mineral Density Test Completed 2011 16015347 Mammogram Completed 2010 87954781 Mammogram Completed Encounters Type Date Location Provider Dx Diagnosis Office Visit 05/24/2018 [facility] Sangita Pierson, Z00.01 Encounter for 2:20p Medicine - N.P. general adult [facility] medical exam w abnormal findings Z12.31 Encntr screen mammogram for malignant neoplasm of breast Z85.048 Prsnl hx of malig neoplm of rectum, rectosig junct, and anus G40.909 Epilepsy, unsp, not intractable, without status epilepticus N39.0 Urinary tract infection, site not specified I89.0 Lymphedema, not elsewhere classified L30.4 Erythema intertrigo L30.8 Other specified dermatitis Office Visit 12/21/2017 9:00a Surgical Seth Powell N63.10 Unspecified lump [facility] M.D. in the right AT [place] breast, unspecified quadrant S30.861A Insect bite (nonvenomous) of abdominal wall, init encntr Office Visit 09/14/2017 Etta Powell N63.10 Unspecified lump 9:00a Associates Santy Petty M.D. in the right [facility] AT [place] breast, unspecified quadrant Office Visit 07/26/2017 [facility] Salbador Horton NP K11.20 Sialoadenitis, 3:20p Medicine - unspecified [place] Office Visit 07/19/2017 [facility] Latesha N63.14 Unspecified lump 3:30p Joseph Alex M.D. in the right [place] breast, lower inner quadrant Office Visit 06/08/2017 [facility] Sangita Pierson, S20.01xD Contusion of 4:00p Medicine - N.P. 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 intertrigo [place] J20.9 Acute bronchitis, unspecified Office Visit 01/24/2016 1:20p [facility] Salbador Horton NP J20.9 Acute bronchitis, Medicine - unspecified [place] Office Visit 12/17/2015 3:00p [facility] Sangita Pierson, J20.9 Acute bronchitis, Medicine - N.P. unspecified [place] Office Visit 12/13/2015 4:00p [facility] Sangita Pierson, H66.92 Otitis media, Medicine - N.P. unspecified, left [place] ear J20.9 Acute bronchitis, unspecified Office Visit 10/11/2015 11:40a [facility] Sangita Pierson, B37.3 Candidiasis of Medicine - N.P. vulva and vagina [place] Office Visit 09/29/2015 3:00p [facility] Sangita Pierson, J01.00 Acute maxillary Medicine - N.P. sinusitis, [place] unspecified Office Visit 09/20/2015 2:40p [facility] Sangita Pierson, J06.9 Acute upper Medicine - N.P. respiratory [place] infection, unspecified Office Visit 08/20/2015 11:40a [facility] Sangita Pierson, L30.4 Erythema Medicine - N.P. intertrigo [place] Office Visit 2015 3:20p [facility] Sangita Pierson, Z00.00 Encntr for Medicine - N.P. 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 Unspecified [place] 578.1 Blood In Stool Melena V10.05 Personal History Malignant Neoplasm Large Intestine Office Visit 02/12/2015 11:40a [facility] Sangita Pierson, 599.0 UTI Urinary Medicine - N.P. Tract Infection [place] Site Not Spec 599.71 Gross Hematuria 788.41 Urinary Frequency Office Visit 12/24/2014 3:20p [facility] Salbador Sol, 465.9 URI Upper Medicine - ANIMAL TECH Respiratory [place] Infections Acute Unspec Sites 780.60 Fever, Unspecified Office Visit 12/01/2014 10:20a [facility] Sangita Pierson, 599.70 Hematuria, Medicine - N.P. Unspecified [place] 112.1 Candidiasis The Vulva & Vagina Office Visit 2014 [facility] Sangita Pierson, 465.9 URI Upper 2:40p Medicine - N.P. Respiratory [place] Infections Acute Unspec Sites Office Visit 04/28/2014 [facility] Sangita Pierson, 719.47 Pain Joint Ankle & 3:20p Medicine - N.P. Foot [place] Office Visit 09/08/2013 [facility] Sangita Pierson, 627.1 Postmenopausal 4:00p Medicine - N.P. Bleeding [place] Office Visit 01/09/2013 [facility] [place] Rod, 466.0 Bronchitis Acute 3:40p Medicine - M.D., FACP [place] Office Visit 08/29/2012 [facility] Sangita Pierson, 611.71 Mastodynia 9:40a Medicine - N.P. [place] Office Visit 07/01/2012 [facility] Sangita Pierson, 244.9 Hypothyroidism Other 11:00a Medicine - N.P. Unspec [place] 272.4 Hyperlipidemia Other Unspec Office Visit 06/05/2012 10:20a [facility] Sangita Pierson, V70.0 Examination Medicine - N.P. General Medical [place] Routine AT Health Care Facility V72.31 Routine Email Marketing Coordinator Examination V76.10 Screening For Malignant Neoplasm Breast 733.90 Bone & Cartilage Disorder Unspec 244.9 Hypothyroidism Other Unspec 457.1 Lymphedema Other 272.4 Hyperlipidemia Other Unspec 345.90 Epilepsy Unspec W/O Intractable 235.5 Neoplasm Uncertain Digestive Other & Unspec V04.81 Need For Prophylactic Vaccination & Inoculation/Influenza 389.9 Hearing Loss Unspec Office Visit 05/14/2012 11:40a [facility] Sangita Pierson, 719.47 Pain Joint Medicine - N.P. Ankle & Foot [place] 627.1 Postmenopausal Bleeding Office Visit 04/22/2012 11:00a [facility] Sangita Pierson, 782.1 Rash & Other Medicine - N.P. Nonspec Skin [place] Eruption 112.1 Candidiasis The Vulva & Vagina Office Visit 04/09/2012 2:20p [facility] Sangita Pierson, 782.1 Rash & Other Medicine - N.P. Nonspec Skin [place] Eruption 686.9 Local Infection Of Skin And Subcutaneous Tissue Unspec Office Visit 03/28/2012 2:40p [facility] Jayne Rod, 461.9 Sinusitis Acute Medicine - M.Afia, FACP Unspec [place] Office Visit 12/26/2011 4:20p [facility] Sangita Pierson, 782.3 Edema Medicine - N.P. [place] Office Visit 12/22/2011 11:20a [facility] Sangita Varn, 709.9 Skin & Medicine - N.P. Subcutaneous [place] Tissue Disorders Unspec 782.3 Edema Office Visit 12/19/2011 10:00a [facility] Sangita Varn, 709.9 Skin & Medicine - N.P. Subcutaneous [place] Tissue Disorders Unspec 782.3 Edema Office Visit 07/12/2011 DO Not Use Sangita 782.3 Edema 1:00p [facility] Varn, N.P. Office Visit 06/06/2011 DO Not Use Sangita 244.9 Hypothyroidism 2:20p [facility] Varn, N.P. Other Unspec Office Visit 05/24/2011 DO Not Use Sangita V70.0 Examination General 3:00p [facility] Varn, N.P. 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 Nonspec Skin Eruption Office Visit 04/05/2011 DO Not Use Sangita Varn, 782.3 Edema 4:00p [facility] N.P. Office Visit 06/03/2010 DO Not Use Sangita Dangelo, 795.01 Pap Smear 2:30p [facility] N.P. Atypical Squamous Cell Undetermined Sig (Asc-US) Office Visit 05/23/2010 DO Not Use Sangita Varn, V72.31 Routine Email Marketing Coordinator 10:00a [facility] N.P. Examination Office Visit 03/11/2010 DO Not Use Jayne Rod, 780.39 Convulsions Other 2:00p Ai Corado, FACP 235.5 Neoplasm Uncertain Digestive Other & Unspec Plan of Treatment 07/01/2018 - Seth Petty M.D.N63.10 Unspecified lump in the right breast, unspecified quadrantFollow up:As needed
[2018-07-18 14:56] VITALS: BP 110/67
--- NOTE | 2018-07-18 14:57 | UC ---
Throat Pain/Nasal Khadar HPI - HPI Summary HPI Summary: 58-year-old woman comes in today with chief complaint of cough chest congestion and green sputum. It has been going on for couple of days. No fevers. Not a smoker. No wheezing no COPD. [id number] medicines are not helping. - History of Current Complaint Stated Complaint: SORE THROAT, AND CHEST CONGESTION Time Seen by Provider: 07/18/18 14:48 - Allergies/Home Medications Allergies/Adverse Reactions: Allergies Allergy/AdvReac Type Severity Reaction Status Date / Time No Known Allergies Allergy Verified 07/18/18 14:51 PMH/Surg Hx/FS Hx/Imm Hx Endocrine History: Hypothyroidism Neurological History: Seizures - Surgical History Surgical History: Yes Surgery Procedure, Year, and Place: colon radiation. full hysterectomy. D&C. Brain surgery - Family History Known Family History: Positive: Hypertension - Mother and sister, Other - Father - lymphoma - Social History Alcohol Use: None Substance Use Type: None Smoking Status (MU): Former Smoker Type: Cigarettes Length of Time of Smoking/Using Tobacco: 8 years Have You Smoked in the Last Year: No When Did the Patient Quit Smoking/Using Tobacco: 1998 Review of Systems All Other Systems Reviewed And Are Negative: Yes Constitutional: Positive: Negative Skin: Positive: Negative Eyes: Positive: Negative ENT: Positive: Nasal Discharge, Sinus Congestion Respiratory: Positive: Cough Cardiovascular: Positive: Negative Gastrointestinal: Positive: Negative Motor: Positive: Negative Neurovascular: Positive: Negative Musculoskeletal: Positive: Edema - chronic Neurological: Positive: Negative Psychological: Positive: Negative Is Patient Immunocompromised?: No Physical Exam Triage Information Reviewed: Yes Appearance: Well-Appearing, No Pain Distress, Well-Nourished Vital Signs Reviewed: Yes Eye Exam: Normal Eyes: Positive: Conjunctiva Clear ENT: Positive: Pharyngeal erythema, Nasal congestion, Nasal drainage, TMs normal Neck exam: Normal Neck: Positive: Supple Respiratory: Positive: Lungs clear, Normal breath sounds, No respiratory distress Cardiovascular: Positive: RRR Musculoskeletal Exam: Normal Musculoskeletal: Positive: Strength Intact, ROM Intact, Edema @ - b/l mild Neurological Exam: Normal Neurological: Positive: Alert, Muscle Tone Normal Psychological Exam: Normal Psychological: Positive: Age Appropriate Behavior Skin Exam: Normal Throat Pain/Nasal Course/Dx - Course Course Of Treatment: DISCUSSED VIRAL VERSES BACTERIAL INFECTION AND THE ROLE OF ANTIBIOTICS. THE PATIENT WISHES TO BE ON ANTIBIOTIC AT THIS TIME. - Differential Dx/Diagnosis Provider Diagnosis: Bronchitis Discharge - Sign-Out/Discharge Documenting (check all that apply): Patient Departure All imaging exams completed and their final reports reviewed: No Studies - Discharge Plan Condition: Stable Disposition: HOME Prescriptions: Azithromyxin KIKI (NF) [Z-Kiki (Zithromax) 250 mg tabs #6] 2 tab PO .TODAY, THEN 1 DAILY #6 tab Patient Education Materials: Acute Bronchitis (ED) Referrals: Sangita Pierson NP [Primary Care Provider] - Additional Instructions: FOLLOW UP WITH YOUR DOCTOR IF NOT COMPLETELY IMPROVED. GET RECHECKED FOR ANY WORSENING OF YOUR CONDITION OR QUESTIONS OR CONCERNS. - Billing Disposition and Condition Condition: STABLE Disposition: Home
== END 2018-07-18 15:00 | disposition home or self-care (01) ==
LOC: UCEAST 14:34
DX: J40 Bronchitis, not specified as acute or chronic (principal); Z87.891 Personal history of nicotine dependence
CPT/HCPCS: 99212; G0463

== ENCOUNTER 2018-12-02 16:09 | Emergency (ER) | payer BC, MEDICARE ==
[2018-12-02 16:36] VITALS: BP 124/66
--- NOTE | 2018-12-02 16:40 | UC ---
Respiratory Complaint HPI - HPI Summary HPI Summary: 58 y/o female presents to the urgent care c/o sinus congestion, yellowish nasal discharge and PND for the past week. Pt reports a productive cough developed about 5 days ago and now his chest is getting mildly congested since yesterday. Pt w/ Hx of bronchitis in the past and doesn't want symptoms to worsen. Pt states sinus pain and FRANCISCO today is 4/10 associated w/ B/L ear pressure RT>LF. Pt has been taking OTC medications w/o any improvement. Pt also c/o of an Rash under her left breast. Her PCP Rx a antifungal powder about 2 weeks ago and rash is not improving. Pt denies fever, SOB, wheezing, dizziness, chest pain, abdominal pain, N/V/d. - History of Current Complaint Chief Complaint: UCRespiratory Stated Complaint: URI Time Seen by Provider: 12/02/18 16:38 Hx Obtained From: Patient ?: No Onset/Duration: Gradual Onset, Lasting Weeks - 1 week, Still Present, Worse Since - yesterday Timing: Constant Severity Initially: Mild Severity Currently: Moderate Pain Intensity: 4 Pain Scale Used: 0-10 Numeric Character: Cough: Productive, Sputum Description: - yellowish Aggravating Factors: Recumbent Position Alleviating Factors: OTC Meds Associated Signs And Symptoms: Positive: URI, Nasal Congestion, Sinus Discomfort. Negative: Fever, Chills Related History: Seasonal Allergies - Risk Factors Pulmonary Embolism Risk Factors: Negative Cardiac Risk Factors: Negative Pseudomonas Risk Factors: Negative Tuberculosis Risk Factors: Negative - Allergies/Home Medications Allergies/Adverse Reactions: Allergies Allergy/AdvReac Type Severity Reaction Status Date / Time No Known Allergies Allergy Verified 12/02/18 16:36 PMH/Surg Hx/FS Hx/Imm Hx Previously Healthy: Yes Endocrine History: Hypothyroidism Neurological History: Seizures Other Cancer History: Anal cancer - Surgical History Surgical History: Yes Surgery Procedure, Year, and Place: colon radiation. full hysterectomy. D&C. Brain surgery - Family History Known Family History: Positive: Hypertension - Mother and sister, Other - Father - lymphoma - Social History Occupation: Unemployed Lives: With Family Alcohol Use: None Substance Use Type: None Smoking Status (MU): Former Smoker Type: Cigarettes Length of Time of Smoking/Using Tobacco: 8 years Have You Smoked in the Last Year: No When Did the Patient Quit Smoking/Using Tobacco: 1998 Review of Systems All Other Systems Reviewed And Are Negative: Yes Constitutional: Positive: Negative Skin: Positive: Rash - under left breast w/ itchiness and redness Eyes: Positive: Negative ENT: Positive: Ear Ache - B/L ear pressure, Nasal Discharge - yellowish, Sinus Congestion, Sinus Pain/Tenderness, Other - moderate yellowish PND Respiratory: Positive: Cough Cardiovascular: Positive: Negative Gastrointestinal: Positive: Negative Genitourinary: Positive: Negative Motor: Positive: Negative Neurovascular: Positive: Negative Musculoskeletal: Positive: Negative Neurological: Positive: Headache Psychological: Positive: Negative Is Patient Immunocompromised?: No Physical Exam - Summary Physical Exam Summary: Vitals: reviewed General: Well developed, well-nourished obese female patient with NAD. Head and face: Normocephalic and atraumatic, Positive tenderness over the frontal and maxillary sinuses.. Eyes: PERRLA, EOMI x 2. Normal conjunctiva. No eye discharge. ENT: Ears and TM with normal limits. Nose: edematous and erythematous nasal mucosa with with yellowish discharge and erythematous mucosa. Pharynx with mild erythema, no exudate. Moderate yellowish PND Neck: Supple, no JVD, no carotid bruits and no lymphadenopathy. Lungs: clear, no rales, no rhonchi, no wheezes. CVS: RRR, S1 and S2 present no murmurs or gallops appreciated. Abdomen: soft nontender with positive bowel sounds. Extremities: no edema noted. Neuro: WNL. Skin: warm and dry, Positive: under left breast w/ an erythematous scaling lesion with a central clearance and raised borders about 4cm x 5cm in size. w/ some yellowish crusting over the rash, mild tender to palpation, and warm to touch Triage Information Reviewed: Yes Vital Signs: Initial Vital Signs Temp 97.4 F 12/02/18 16:32 Pulse 70 12/02/18 16:32 Resp 16 12/02/18 16:32 BP 124/66 12/02/18 16:32 Pulse Ox 98 12/02/18 16:32 Respiratory Course/Dx - Course Course Of Treatment: 58 y/o female presents to the urgent care c/o sinus congestion, yellowish nasal discharge and PND for the past week. Pt reports a productive cough developed about 5 days ago and now his chest is getting mildly congested since yesterday. Pt w/ Hx of bronchitis in the past and doesn't want symptoms to worsen. Pt states sinus pain and FRANCISCO today is 4/1O associated w/ B/L ear pressure RT>LF. Pt has been taking OTC medications w/o any improvement. Pt also c/o of an Rash under her left breast. Her PCP Rx a antifungal powder about 2 weeks ago and rash is not improving. Pt denies fever, SOB, wheezing, dizziness, chest pain, abdominal pain, N/V/d. Hx obtained. Pt w/ acute bacterial sinusitis and possible tinea corporis now co-infected s/p excoriation on examination. Pt with 1 week of symptoms getting worse. Pt Rx Augmentin PO and flonase nasal spray. Pt advised to continue w/ anifungal powder and apply Bactroban topical creasm as directed below. Discharge instructions explained to Pt. Advised to Return to the clinic or PCP if symptoms do not improve.Pt understood and agreed with plan of care. - Differential Dx/Diagnosis Differential Diagnosis/HQI/PQRI: Bronchitis, Influenza, Lower Resp Infection, Sinusitis, Other - pneumonia Provider Diagnosis: Acute bacterial sinusitis, Rash and nonspecific skin eruption Discharge - Sign-Out/Discharge Documenting (check all that apply): Patient Departure - D/C home All imaging exams completed and their final reports reviewed: No Studies - Discharge Plan Condition: Stable Disposition: HOME Prescriptions: Amoxicillin/Clavulanate TAB* [Augmentin TAB 875*] 875 mg PO BID #14 tab Fluticasone NASAL SPRAY 50MCG* [Flonase NASAL SPRAY 50MCG*] 2 spray BOTH NARES DAILY #1 btl Mupirocin 2% OINT* [Bactroban 2 % Oint*] 1 applic TOPICAL BID #1 tube Patient Education Materials: Sinusitis (ED), Acute Rash (ED) Referrals: Sangita Pierson [facility] [Primary Care Provider] - 1 Week Additional Instructions: 1- Please increase fluid intake and rest. take full course of antibiotic to avoid resistance. Take yogurts w/ probiotics or Culturelle to protect your GI system 2-Use Flonase as directed to help drain fluid. Also buy saline drops to clear sinuses 3- Apply BActroban topical cream as directed to alleviate rash. Keep area dry and clean. 4-Please f/u w/ your PCP if symptoms do not improve for further management and treatment - Billing Disposition and Condition Condition: STABLE Disposition: Home
== END 2018-12-02 17:30 | disposition home or self-care (01) ==
LOC: UCEAST 16:09
DX: J01.90 Acute sinusitis, unspecified (principal); R21 Rash and other nonspecific skin eruption; E03.9 Hypothyroidism, unspecified; R56.9 Unspecified convulsions; Z87.891 Personal history of nicotine dependence
CPT/HCPCS: 99212; G0463

== ENCOUNTER 2018-12-28 08:21 | Emergency (ER) | payer BC, MEDICARE ==
--- OUTSIDE RECORDS SUMMARY | 2018-12-28 08:33 | XMS REPORT | Continuity of Care Document ---
:1960 External Reference #:[id number] Author Name Palmira Geiger Care Team Providers Name Role Phone Latesha Alex MD Primary Care Physician Unavailable Payers Date Identification Numbers Payment Provider Subscriber Effective: 2012 Policy Number: [id number] [employer] Mark Johnson Group Name: Active Employee [address] PayID: [id number] [place] [id number] Effective: 1996 Policy Number: [id number] Medicare Autumn Johnson Group Name: Sec To [employer] [place] [address] PayID: [id number] [place] [address] Policy Number: [id number] [facility] Ppo Autumn Johnson PayID: [id number] [address] [address] Advance Directives Type Date Description Status Comment Other Directive 01/30/2014 Health Care Proxy Current and Verified Problems Active Problems Provider Date 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 Onset: respiratory systems Epilepsy Sangita Varn, N.P. Onset: 05/24/2011 Hyperlipidemia Sangita Varn, N.P. Onset: 05/24/2011 Lymphedema Sangita Varn, N.P. Onset: 11/02/2011 Hypothyroidism Sangita Varn, N.P. Onset: 06/05/2012 Osteochondropathy Sangita Varn, N.P. Onset: 06/05/2012 Family History Date Family Member(s) Observation Comments : (age 69 Father due to [...] Quit at age 20 Smoking Status Reviewed: 12/25/18 Patient is a former Smoked 3 years, less smoker than a pack a day. Quit at age 20 Exercise Exercises sporadically Type/Frequency Allergies, Adverse Reactions, Alerts Active Allergies Reaction Severity Comments Date No Known Drug Allergy 05/20/2010 Medications Active Medications SIG Qnty Indications Ordering Date Provider Ibuprofen 1 by mouth every 60tabs L30.4 Sangita Rebollarkatey, 12/25/2018 600mg Tablets 6 hours as N.P. needed for pain Flonase Allergy Relief Every Day 1units Unknown 12/02/2018 50mcg/Act Suspension Bactroban Twice Daily 1units Unknown 12/02/2018 2% Ointment Dexilant one po qd 90caps Sangita Dangelo, 10/21/[address] Sheppard Clotrimazole/Betametha Apply To 15units Sangita Rebollarkatey, 08/29/2018 sone Dipropionate Affected Area(S) N.P. 1-0.05% Two Times A Day Cream To Three Times A Day Nystatin apply twice 90gm L30.4 Sangita Dangelo, 05/24/2018 [id number] daily until rash N.P. Powder clears Triamcinolone apply to dry 60ml R21 Sangita Dangelo, 05/24/2018 Acetonide skin once or N.P. 0.1% Lotion twice daily Premarin 1 tablet by 90tabs Sangita Dangelo, 10/31/2017 0.3mg Tablets mouth daily N.P. Compression Stockings knee high 30 - 2units Sangita Varkatey, 04/16/2015 40 mm N.P. Misc Synthroid take one tablet 90tabs Sangita Dangelo, 09/17/2011 100mcg Tablets by mouth every N.P. day Centrum Silver 1 po qd [place] Rod, 04/05/2011 Tablets M.Afia, FACP Caltrate 600+D 1 po bid Jayne Rod, 04/05/2011 Mickie, FACP [id number] Chewtabs Depakote 3 tablets twice 360tabs Unknown 250mg Tablets DR a day Lamictal 1 tablet twice a Unknown 100mg Tablets day Betmiga 1 po qday Unknown 50mg History Medications Augmentin T1 tab PO twice 20tabs Salbador Horton NP 12/13/2018 - 875-125mg Tablets Daily 12/20/2018 Zithromax Azithromyxin Lasha 6tabs Unknown 07/18/2018 - 250mg Tablets (Nf) 12/25/2018 Clotrimazole/Betamethason apply 2 - 3 times 15gm Sangita Pierson, 2017 - e Dipropionate daily as needed N.P. 05/24/2018 1-0.05% Cream Bactrim DS one by mouth 14tabs N39.0 Sangita Pierson, 05/24/2018 - 800-160mg Tablets twice a day for 7 N.P. 05/31/2018 days Fluconazole one by mouth december 2tabs Sangita Pierson, 12/28/2017 - 150mg Tablets repeat in 3 days N.P. 05/24/2018 as needed Doxycycline Hyclate 2 tablets by 2tabs Sangita Pierson, 12/21/2017 - 100mg mouth N.P. 05/24/2018 Tablets Fluconazole one by mouth december 2tabs B37.3 Salbador Horton NP 08/07/2017 - 150mg Tablets repeat in 3 days 09/12/2017 as needed Cephalexin take one capsule 28caps K11.2 Salbador Horton NP 07/26/2017 - 500mg Capsules every 6 hours for 0 08/02/2017 7 days Lotrisone apply externally 15units Sangita Pierson, 05/09/2017 - 1-0.05% Cream bid-tid N.P. 09/12/2017 Fluconazole one by mouth december 2tabs Sangita Pierson, 02/23/2017 - 150mg Tablets repeat in 3 days N.P. 03/01/2017 as needed Lotrisone apply externally 15gm Sangita Pierson, 02/23/2017 - 1-0.05% Cream bid-tid N.P. 03/09/2017 Compression Machine use every evening 1units I89.0 Sangita Pierson 2016 - dx: lymphedema N.P. 09/12/2017 cpt [id number] Nystatin apply twice a day 1units L30.4 Sangita Rebollarkatey, 07/24/2016 - Powder until rash clears N.P. 09/12/2017 Azithromycin two tabs day one, 6tabs J20.9 Sangita Pierson, 07/24/2016 - 250mg Tablets one daily till N.P. 08/03/2016 gone Benzonatate one by mouth 30caps J20.9 Sangita Dangelo, 07/24/2016 - 100mg Capsules three times daily N.P. 08/07/2016 as needed for cough Guaifenesin One po bid prn 60tabs Sangita Pierson, 07/21/2016 - 400mg Tablets cough N.P. 08/04/2016 Azithromycin 2 tabs by mouth 6tabs J20.9 Salbador Horton NP 01/24/2016 - 250mg Tablets every day x1 day, 01/29/2016 1 tab by mouth every day x 4 days Cheratussin ac 1 - 2 teaspoons 120ml J20.9 Salbador Horton NP 01/24/2016 - 100-10mg/5ML by mouth every 4 02/02/2016 Syrup hours as needed Levaquin 1 by mouth daily 10tabs J20.9 Sangita Pierson, 12/17/2015 - 500mg Tablets for 10 days N.P. 12/27/2015 Prednisone 4 tablets by 40tabs J20.9 Sangita Pierson, 12/17/2015 - 10mg Tablets mouth for 4 days N.P. 01/02/2016 3 tablets by mouth for 4 days 2 tablets by mouth for 4 days 1 tablet by mouth for 4 days Cheratussin ac 1 - 2 teaspoons 120ml J20.9 Sangita Pierson, 12/17/2015 - 100-10mg/5ML by mouth every 4 N.P. 12/24/2015 Syrup hours as needed Flovent HFA 2 puffs twice 12gm J20.9 Sangita Pierson, 12/17/2015 - 110mcg/Act Aerosol daily N.P. 12/31/2015 Azithromycin two tabs day one, 6tabs H66.9 Sangita Pierson, 12/13/2015 - 250mg Tablets one daily till 2 N.P. 12/23/2015 gone Benzonatate one by mouth 30caps J20.9 Sangita Smoothn, 12/13/2015 - 200mg Capsules three times daily N.P. 12/23/2015 as needed for cough Ventolin HFA 1 to 2 1inhaler J20.9 Sangita Rebollarn, 12/13/2015 - 108(90Base) inhalations every N.P. 12/23/2015 mcg/Act Aerosol 4 hours as needed Fluconazole one by mouth december 2tabs B37.3 Sangita Rebollarn, 10/11/2015 - 150mg Tablets repeat in 3 days N.P. 12/13/2015 as needed Lotrisone apply externally 15gm B37.3 Sangita Rebollarkatey, 10/11/2015 - 1-0.05% Cream bid-tid N.P. 10/25/2015 Fluticasone Propionate 2 sprays each 16units J01.0 Sangita Rebollarkatey, 2015 - nostril daily as 0 N.P. 10/13/2015 50mcg/Act Suspension needed Augmentin one by mouth 20tabs J01.0 Sangita Rebollarn, 09/29/2015 - 875-125mg Tablets every 12 hours 0 N.P. 10/09/2015 for ten days Benzonatate one by mouth 30caps J06.9 Sangita Smoothn, 09/20/2015 - 200mg Capsules three times daily N.P. 10/04/2015 as needed for cough Nystatin apply twice a day 1units L30.4 Sangita Rebollarkatey, 08/20/2015 - Powder until rash clears N.P. 12/13/2015 Synthroid 1 by mouth every 30tabs Sangita Smoothkatey, 06/25/2015 - 100mcg Tablets day N.P. 08/06/2015 Ciprofloxacin HCL one by mouth 14tabs 599.0 Sangita Smoothn, 02/12/2015 - 250mg Tablets twice a day for 7 N.P. 02/19/2015 days Tamiflu take one capsule 10caps 465.9 Salbador Horton, EDGER FEEDER 12/24/2014 - 75mg Capsules twice daily for 5 12/31/2014 days. Fluconazole one by mouth december 2tabs 112.1 Sanigta Rebollarkatey, 12/01/2014 - 150mg Tablets repeat in 3 days N.P. 12/07/2014 as needed Clobetasol Propionate apply thin film 60gm 112.1 Sangita Pierson, 2014 - 0.05% twice daily for N.P. 02/12/2015 Cream not more than 2 weeks then two weeks off and may start again if needed Azithromycin two tabs day one, 6tabs Sangita Dangelo, 06/26/2014 - 250mg Tablets one daily till N.P. 07/06/2014 gone Benzonatate one by mouth 30caps 465.9 Sangita Rebollarkatey, 2014 - 100mg Capsules three times daily N.P. 07/02/2014 as needed for cough Triamcinolone Acetonide apply twice a day 30gm Sangita Dangelo, 12/08/2013 - 0.1% until clear N.P. 01/30/2014 Cream Guaifenesin ac 1 tsp by mouth 100cc 466.0 Jayne Morrisonon, 01/09/2013 - 100-10mg/5ML every day every M.D., FACP 09/08/2013 Syrup night as needed Flovent HFA 2 puffs twice 1units 466.0 Jayne Viola, 01/09/2013 - 44mcg/Act Aerosol daily for 10 days M.D., FACP 01/20/2013 Azithromycin two tabs day one, 6tabs 466.0 Jayne Morrisonon, 01/09/2013 - 250mg Tablets one daily till M.D., FACP 09/08/2013 gone Levothyroxine Sodium 1 po qd 30tabs 244.9 Sangita Rebollarkatey, 07/01/2012 - 125mcg N.P. 08/28/2012 Tablets Fluconazole one by mouth december 2tabs 112.1 Sangita Dangelo, 04/22/2012 - 150mg Tablets repeat in 3 days N.P. 04/28/2012 as needed Lotrisone apply externally 15gm 112.1 Sangita Dangelo, 04/22/2012 - 1-0.05% Cream bid-tid N.P. 04/29/2012 Triamcinolone Acetonide apply bid until 30gm 782.1 Latesha 04/19/2012 - 0.1% clear Micike Alex 07/01/2012 Cream Diflucan sig 1 po repeat 2tabs Sangita Dangelo, 04/15/2012 - 150mg Tablets in 3 days if N.P. 05/14/2012 needed Medrol Dosepak as directed 1pak 782.1 Sangita Dangelo, 04/09/2012 - 4mg Tablets N.P. 04/15/2012 Triamcinolone Acetonide apply bid until 30gm 782.1 Sangita Dangelo, 2011 - 0.1% clear N.P. 04/16/2012 Cream Cephalexin 1 po tid for 7 21caps 686.9 Sangita Dangelo, 04/09/2012 - 500mg Capsules days N.P. 04/16/2012 Guaiatussin ac 1-2 tsp by mouth 4oz 461.9 Jayne Viola, 03/28/2012 - 100-10mg/5ML qhs prn Mickie, FACP 04/09/2012 Syrup Nasonex 2 sprays to each 1units 461.9 Jayne Rod, 03/28/2012 - 50mcg/Act Suspension nostril twice M.D., FACP 07/01/2012 daily Amoxicillin one po tid for 10 30caps 709.9 [facility] 12/19/2011 - 500mg Capsules days Mickie Alex 12/29/2011 Sulfamethoxazole/Trimetho one po bid for 10 20tabs 709.9 [facility] 2011 - prim DS days Mickie Alex 12/29/2011 800-160mg Tablets Levothyroxine Sodium 1 po qd 90tabs 244.9 [facility] 08/07/2011 - 75mcg Mickie Alex 09/17/2011 Tablets Levothyroxine Sodium 1 po qd 90tabs 244.9 Jayne Rod, 06/06/2011 - 50mcg [facility], [facility] Tablets Premarin 1 by mouth every 90tabs Sangita Pierson, 05/24/2011 - 0.3mg Tablets day N.P. 10/31/2017 Vesicare 1 po qd Jayne Rod, 04/05/2011 - 10mg Tablets M.D., [facility] 09/08/2013 Hydrochlorothiazide 1 po qd 90tabs 782.3 Latesha 04/05/2011 - 25mg Mickie Alex 05/24/2011 Tablets Levofloxacin 20 milliliters by Unknown - 25mg/ml Solution mouth each day 09/11/2017 Myrbetriq 1 by mouth every Unknown - 50mg Tablets ER 24HR day 09/12/2017 Dexilant 1 by mouth every 90caps Sangita Varn, - 60mg Capsules DR day N.P. 10/21/2018 Vesicare 1 by mouth every Unknown - 10mg Tablets day 2015 Dexilant 1 by mouth every 30caps Unknown - 60mg Capsules DR day 12/01/2014 Toviaz once a day Unknown - 8mg Tablets ER 24HR [facility] 12/01/2014 Vesicare 1 by mouth every 30tabs Unknown - 10mg Tablets day 04/27/2014 Gelnique Unknown - 3(28)% (mg/Act) Gel 01/30/2014 Cephalexin take 1 tablet by 21caps Unknown - 500mg Capsules mouth four times 03/28/2012 a day Furosemide 1 po qam-maximum 10tabs Unknown - 20mg Tablets daily dose 1 07/01/2012 Hydrochlorothiazide 1 tablet daily 90tabs Unknown - 25mg 04/05/2011 Tablets Premarin 1 tablet daily 30tabs Jayne Viola, - 0.625mg Tablets Mickie, FACP 05/24/2011 Protonix 1 tablet daily 90tabs Latesha - 40mg Tablets DR Isai M.D. 04/27/2014 Immunizations CPT Code Status Date Vaccine Lot # [id number] Given 05/04/2018 Influenza Virus Vaccine, Quadrivalent, Split, Preservative Free [id number] Given 06/10/2015 Flu Vaccine NOS Q2037 Given 06/05/2012 Fluvirin Im 3Yrs And Older [id number] Given 05/24/2011 Afluria Vaccine [id number] Given 05/24/2011 Tdap - Tetanus/Diptheria/Acellular Pertussis [id number] Vital Signs Date Vital Result Comment 12/25/2018 4:06pm Height 66 inches 5'6" Weight 226.50 lb Heart Rate 73 /min BP Systolic 136 mmHg BP Diastolic 74 mmHg Body Temperature 97.4 F O2 % BldC Oximetry 98 % BMI (Body Mass Index) 36.6 kg/m2 07/01/2018 9:09am Height 66 inches 5'6" Weight [...] H/L Range Note Urine Culture And 05/24/2018 [facility] Urine Culture SEE RESULT 1, [address] [place] [address] [phone] Ua Routine 05/24/2018 [facility] Ua Specific 1015 [place] Ua PH 5 Ua Color yellow Ua Appera clear Ua WBC trace Ua Protein negative Ua Glucose negative Ua Ketones negative Ua Bilirubin negative Ua Urobilinogen negative Ua Nitrite negative Ua Occult Blood trace Laboratory test 04/12/2018 [facility] TSH (Thyroid 2.23 mcIU/mL N 0.34-5.[address] Stim Horm) [place] [address] [phone] Valproic Acid (Depakene) 111.0 g/mL High 50-100 Vitamin B12 435 pg/mL N 180-914 3 Lamotrigine (Lamictal) 10.5 g/mL 2.5 - 15.0 4 Poc Urinalysis 04/07/2018 [facility] Poc Glucose, Negative Negative [address] [place] [address] [phone] Poc Bilirubin, Urine Negative Negative Poc Ketone, Urine Negative Negative Poc Specific [place], Urine 1.015 N 1.010-1.030 Poc Blood, Urine Trace-intact Abnormal Negative Poc pH, Urine 6.5 N 5-9 Poc Protein, Urine Negative Negative Poc Urobilinogen, Urine 0.2 Negative Poc Nitrite, Urine Negative Negative Poc Leukocytes, Urine 1+ Abnormal Negative Poc Color, Urine Yellow Poc Clarity, Urine Clear 5 Urine Culture And 04/07/2018 [facility] Urine SEE RESULT 6 , [address] [place] [address] [phone] CBC Auto Diff 02/15/2018 [facility] White Blood 5.5 10^3/uL N 3.5-[address] Count 0.8 [place] [address] [phone] Red Blood Count 3.89 10^6/uL Low 4.00-5.40 [...] Cells % 0.1 Comp Metabolic Panel 02/15/2018 [facility] Sodium 139 mmol/L N 135-[address] [place] [address] [phone] Potassium 4.2 mmol/L N 3.5-5.0 Chloride 103 [...] Egfr 89.5 >60 8 Laboratory test 04/06/2017 [facility] Surgical SEE RESULT 9 , [address] [place] [address] [phone] Comp Metabolic 03/16/2017 [facility] Sodium 135 mmol/L N 133- [address] [place] [address] [phone] Potassium 4.5 mmol/L N 3.5-5.0 Chloride 100 [...] 102.8 N >60 11 Lipid Profile 03/16/2017 [facility] Triglycerides 151 mg/dL N 12 (Trig/Chol/HDL) [address] [place] [address] [phone] Cholesterol 175 mg/dL N 13 HDL Cholesterol 62.3 mg/dL N 14 LDL Cholesterol 83 mg/dL N 15 Laboratory test 03/16/2017 [facility] TSH (Thyroid 4.39 mcIU/mL N 0.34-5.[address] Stim Horm) [place] [address] [phone] Comp Metabolic 03/02/2017 [facility] Sodium 136 mmol/L N 133- [address] [place] [address] [phone] Potassium 4.7 mmol/L N 3.5-5.0 Chloride 101 [...] N >60 Egfr 101.2 N >60 16 CBC Auto Diff 03/02/2017 [facility] White Blood 5.5 10^3/uL N 3.5-10.[address] [place] [address] [phone] Red Blood Count 3.80 10^6/uL Low 4.0-5.4 [...] Nucleated Red Blood Cells % 0 N Urine Culture And 02/10/2017 [facility] Urine Culture SEE RESULT 17, [address] [place] [place], [place] [id number] [phone] Laboratory test 11/10/2016 [facility] TSH (Thyroid Stim 4.84 N 0.[address] Horm) mcIU/mL -5.6 [place] [address] [phone] Laboratory test 2016 [facility] Glucose 94 mg/dL N 70-1 [address] [place] [address] [phone] Lipid Profile 2016 [facility] Triglycerides 133 mg/dL N 20 (Trig/Chol/HDL) [address] [place], [place] [id number] [phone] Cholesterol 198 mg/dL N 21 HDL Cholesterol 68.1 mg/dL N 22 LDL Cholesterol 103 mg/dL N 23 Laboratory 2016 [facility] TSH (Thyroid 4.78 N 0.34- 5.60 [address] Stim Horm) mcIU/[place] [address] [phone] Laboratory 04/20/2016 [facility] Surgical SEE RESULT 25, [address] [place] [address] [phone] CBC Auto Diff 02/18/2016 [facility] White Blood 5.1 10^3/uL N 3.5-10.8 [place] [address] [phone] Red Blood Count 3.86 10^6/uL Low 4.0-5.4 [...] % 0 N Comp Metabolic Panel 02/18/2016 [facility] Sodium 135 mmol/L N 133-[address] [place] [address] [phone] Potassium 3.7 mmol/L N 3.5-5.0 Chloride 100 [...] 98.6 N >60 27 Laboratory test 10/11/2015 [facility] Urine Culture And SEE RESULT [address] [place] [address] [phone] Ua Routine 10/11/2015 [facility] Ua Specific [place] 1.015 Ua PH 5 Ua Color yellow Ua Appera clear Ua WBC trace Ua Protein negative Ua Glucose negative Ua Ketones negative Ua Bilirubin negative Ua Urobilinogen negative Ua Nitrite negative Ua Occult Blood positive Laboratory test 2015 [facility] Urine Culture And SEE RESULT [address] [place] [address] [phone] Ua Routine 2015 [facility] Ua Specific [place] 1.010 Ua PH 5 Ua Color yellow Ua Appera clear Ua WBC neg Ua Protein neg Ua Glucose neg Ua Ketones small Ua Bilirubin neg Ua Urobilinogen neg Ua Nitrite neg Ua Occult Blood small CBC No Diff 04/23/2015 [facility] White Blood 6.1 10^3/uL N 4.8-10.[address] [place] [address] [phone] Red Blood Count 3.71 10^6/uL Low 4.0-5.4 [...] um3 N 7.4-10.4 Comp Metabolic Panel 04/23/2015 [facility] Sodium 136 mmol/L N 133-[address] [place] [address] [phone] Potassium 4.1 mmol/L N 3.5-5.0 Chloride 100 [...] 99.0 N >60 30 Laboratory test 04/23/2015 [facility] Valproic Acid 98.0 g/mL N 50-[address] (Depakene) [place] [address] [phone] Hemoglobin A1c (Glyco HGB) 5.6 % N Less than 6.0 31 Lamotrigine (Lamictal) 12.4 g/mL N 2.5 - 15.0 32 CBC Auto Diff 02/17/2015 [facility] White Blood 5.4 10^3/uL N 4.8-10.[address] [place] [address] [phone] Red Blood Count 3.79 10^6/uL Low 4.0-5.4 [...] Cells % 0.1 N Ua Routine 02/17/2015 [facility] Ua Specific [place] 1.010 Ua PH 5 Ua Color yellow Ua Appera clear Ua WBC negative Ua Protein negative Ua Glucose negative Ua Ketones small Ua Bilirubin small Ua Urobilinogen normal Ua Nitrite negative Ua Occult Blood NHT Laboratory test 02/17/2015 [facility] Cytology Non-Paper Plate Machine Tender SEE RESULT [address] [place] [address] [phone] Ua And Culture 02/12/2015 [facility] Urine Culture And SEE RESULT [address] [place] [address] [phone] Urinalysis 02/12/2015 [facility] Urine Color Yellow N Profile [address] [place] [address] [phone] Urine Appearance Clear N Urine Specific [place] 1.008 Low 1.010-1.030 Urine pH 5.0 N 5-9 Urine Urobilinogen Negative N Negative Urine Ketones Negative N Negative Urine Protein Negative N Negative Urine Leukocytes Negative N Negative Urine Blood Negative N Negative Urine Nitrite Negative N Negative Urine Bilirubin Negative N Negative Urine Glucose Negative N Negative Ua Routine 02/12/2015 [facility] Ua Specific [place] 1.005 Ua PH 5 Ua Color yellow Ua Appera clear Ua WBC negative Ua Protein negative Ua Glucose negative Ua Ketones trace Ua Bilirubin small Ua Urobilinogen normal Ua Nitrite negative Ua Occult Blood negative CBC Auto Diff 01/29/2015 [facility] White Blood 6.5 10^3/uL N 4.8-10.[address] Count [place], [place] [address] [phone] Red Blood Count 3.69 10^6/uL Low 4.0-5.4 [...] % 0 N Comp Metabolic Panel 01/29/2015 [facility] Sodium 135 mmol/L N 133-[address] [place] [address] [phone] Potassium 4.0 mmol/L N 3.5-5.0 Chloride 100 [...] 99.0 N >60 35 Laboratory test 01/29/2015 [facility] TSH (Thyroid 1.30 N 0.34 -5.[address] Stim Horm) ?IU/mL [place], [place] [address] [phone] Laboratory test 12/24/2014 [facility] Rapid SEE RESULT [address] Influ[place] [address] Antigen [phone] Urine Culture And 12/01/2014 [facility] Urine Culture (SEE NOTE ) [address] [place] [address] [phone] Ua Routine 12/01/2014 [facility] Ua Specific 1.020 [place] Ua PH 5 Ua Color yellow Ua Appera cloudy Ua WBC moderate Ua Protein negative Ua Glucose negative\\ Ua Ketones trace Ua Bilirubin trace Ua Urobilinogen normal Ua Nitrite negative Ua Occult Blood trace Comp Metabolic Panel 01/29/2014 [facility] Sodium 124 mmol/L Low 133-[address] [place] [address] [phone] Potassium 3.9 mmol/L N 3.7-5.6 Chloride 90 [...] 77.3 N >60 Egfr 99.4 N >60 38 Lipid Profile 01/29/2014 [facility] Triglycerides 187 mg/dL N 39 (Trig/Chol/HDL) [address] [place] [address] [phone] Cholesterol 206 mg/dL N 40 HDL Cholesterol 60.6 mg/dL N 41 LDL Cholesterol 108 mg/dL N 42 CBC With 01/29/2014 [facility] White Blood 4.9 10^3/uL N 4.8- 10.[address] [place] [address] [phone] Red Blood Count 3.68 10^6/uL Low 4.0-5.4 [...] Morphology Normal N Normal Laboratory test 01/29/2014 [facility] TSH (Thyroid 3.60 IU/mL N 0.34-5.[address] [place] [address] Horm) [phone] Comp Metabolic 06/12/2013 [facility] Sodium 133 mmol/L 133- [address] [place], [place] [address] [phone] Potassium 4.3 mmol/L 3.5-5.0 Chloride 97 mmol/L [...] Non- 75.3 >60 Egfr 96.9 >60 43 CBC Auto Diff 06/12/2013 [facility] White Blood 5.8 10^3/uL 4.8-10.[address] [place] [address] [phone] Red Blood Count 3.76 10^6/uL Low 4.0-5.4 [...] 0-2 Nucleated Red Blood Cells % 0.1 Laboratory test 08/19/2012 [facility] TSH (Thyroid 2.14 0.34- 5.[address] Stimulating miu/[place] [address] Horm) [phone] Free T4 0.96 ng/mL 0.61-1.24 Throat-Beta 07/12/2012 [facility] Throat Beta Strep (SEE [address] Culture NOTE) [place] [address] [phone] Lipid Profile 06/12/2012 [facility] Triglycerides 231 mg/dL High 40-2 (Trig/Chol/HDL) [address] [place], [place] [id number] [phone] Cholesterol 202 mg/dL High Less than 200 45 HDL Cholesterol 75 mg/dL High 40-60 46 Cholesterol/HDL Ratio 2.7 AVERAGE 1-4.44 LDL Cholesterol 80.8 mg/dL Less Than 100 47 Comp Metabolic Panel 06/12/2012 [facility] Sodium 137 mmol/L 133-[address] [place] [address] [phone] Potassium 4.4 mmol/L 3.5-5.0 Chloride 101 mmol/L [...] >60 Egfr 97.3 >60 49 Laboratory 06/12/2012 [facility] TSH (Thyroid 8.28 High 0.34- 5.[address] Stimulating MIU/[place] [address] Horm) [phone] Free T4 0.68 NG/ML 0.61-1.24 Vitamin D 06/12/2012 [facility] Vitamin D 22 pg/mL 18-78 50 1,[address] 1,25-Dihydroxy Vitamin D,2 [place] [address] [phone] Vitamin D, 25 06/12/2012 [facility] 25-Hydroxy Vitamin <4.0 ng/ mL Hydroxy [address] D2 [place] [address] [phone] 25-Hydroxy Vitamin D3 49 ng/mL 25-Hydroxy Vitamin D Total 49 ng/mL 51 Ua Routine 06/05/2012 [facility] Ua Specific [place] 1.010 Ua PH 6 Ua Color yellow Ua Appera clear Ua WBC neg Ua Protein neg Ua Glucose neg Ua Ketones neg Ua Bilirubin neg Ua Urobilinogen neg Ua Nitrite neg Ua Occult Blood non hemo trace Surgical 03/21/2012 [facility] Surgical [address] Pathology <SEE NOTE> [place], [place] [id number] [phone] Laboratory 12/22/2011 [facility] Surgical 53 test finding Pathology <SEE NOTE> [place] [address] [phone] Comp Metabolic 12/22/2011 [facility] Sodium 130 mmol/L Low 135 Panel -14 [place] [address] [phone] Potassium 4.6 mmol/L 3.5-5.0 Chloride 94 mmol/L [...] 84.9 > 60 56 Laboratory test 12/22/2011 [facility] C Reactive 0.7 mg/dL High Less Than finding [address] Protein 0.5 [place] [address] [phone] Comp Metabolic 12/17/2011 [facility] Sodium 131 mmol/L Low 135 -[address] [place] [address] [phone] Potassium 3.8 mmol/L 3.5-5.0 Chloride 96 mmol/L [...] > 60 59 CBC Auto Diff 12/17/2011 [facility] White Blood 5.9 CUMM 4.8- 10.[address] [place] [address] [phone] Red Cell Count 3.58 CUMM Low 4.2-5.4 [...] Abs Basophils 0.1 0-0.2 Blood Culture 12/17/2011 [facility] M <SEE [address] NOTE> [place] [address] [phone] Protime 12/17/2011 [facility] Inr 0.81 Low 0.88-[address] [place] [address] [phone] Protime 9.6 SEC Low 10.3-13.5 62 Laboratory test 12/17/2011 [facility] PTT (Aptt) 28.0 SEC 25.1-38.[address] [place] [address] [phone] BNP Evaluatr 50.0 pg/mL 0-100 Laboratory test 10/30/2011 [facility] TSH 3.95 MIU/ML 0.34- 5.[address] [place] [address] [phone] Thyroxine Free 0.80 ng/dL 0.61-1.24 Laboratory test 09/15/2011 [facility] TSH 6.53 MIU/ML High 0.34-5.[address] [place] [address] [phone] Thyroxine Free 0.71 ng/dL 0.61-1.24 Laboratory test 08/01/2011 [facility] Thyroxine Free 0.74 ng/dL 0.61-1.[address] [place] [address] [phone] TSH 6.88 MIU/ML High 0.34-5.60 Laboratory test 06/02/2011 [facility] TSH 12.98 MIU/ML High 0.34-5.[address] [place] [address] [phone] Comp Metabolic 06/02/2011 [facility] Sodium 134 mmol/L Low 135 -[address] [place] [address] [phone] Potassium 4.5 mmol/L 3.5-5.0 Chloride 101 mmol/L [...] 97.6 > 60 65 Lipid Profile 06/02/2011 [facility] Triglyceride 125 mg/dL 40 -200 (Trig/Chol/HDL) [address] [place] [address] [phone] Cholesterol 186 mg/dL Less Than 200 66 High Density Lipoprotein 87 mg/dL High 40-60 67 Low Density Lipoprotein 74 mg/dL Less Than 100 68 Cholesterol/HDL Ratio 2.14 AVERAGE 1-4.44 Laboratory test 05/24/2011 [facility] Cytology <SEE [address] NOTE> [place] [address] [phone] Comp Metabolic 05/19/2011 [facility] Sodium 135 mmol/L 135-[address] [place] [address] [phone] Potassium 4.9 mmol/L 3.5-5.0 Chloride 101 mmol/L [...] > 60 eGFR 97.6 > 60 72 Basic Metabolic 05/05/2011 [facility] Sodium 128 mmol/L Low 135-145 Panel 101 [place] [address] [phone] Potassium 4.1 mmol/L 3.5-5.0 Chloride 89 mmol/L Low 101-111 Co2 (Carbon Dioxide) 31.0 mmol/L 22-32 Anion Gap 8.0 mmol/L 2-11 73 Glucose 94 mg/dL 70-100 BUN 9 mg/dL 6-24 Creatinine 0.8 mg/dL 0.50-1.40 One Over Creatinine 1.25 BUN/Creatinine Ratio 11.3 8-20 Calcium 10.0 mg/dL High 8.1-9.9 eGFR Non- 75.9 > 60 eGFR 97.6 > 60 74 Laboratory test 05/05/2011 [facility] Osmolality 284 MOSMO [phone] finding [address] [place] [address] [phone] Basic Metabolic 04/20/2011 [facility] Sodium 131 mmol/L Low 135-145 Panel [address] [place] [address] [phone] Potassium 3.9 mmol/L 3.5-5.0 Chloride 93 mmol/L Low 101-111 Co2 (Carbon Dioxide) 32.0 mmol/L 22-32 Anion Gap 6.0 mmol/L 2-11 75 Glucose 109 mg/dL High 70-100 BUN 12 mg/dL 6-24 Creatinine 1.0 mg/dL 0.50-1.40 One Over Creatinine 1.00 BUN/Creatinine Ratio 12.0 8-20 Calcium 8.9 mg/dL 8.1-9.9 eGFR Non- 58.7 > 60 eGFR 75.5 > 60 76 Comp Metabolic Panel 04/06/2011 [facility] Sodium 131 mmol/L Low 135-[address] [place] [address] [phone] Potassium 4.7 mmol/L 3.5-5.0 Chloride 95 mmol/L [...] 60 eGFR 85.2 > 60 79 1 [id number] 2 SEE RESULT BELOW Name: AUTUMN JOHNSON : [address]: Sangita Pierson NP Acct: [id number] Unit: [id number] AGE: 57 Location: [facility] Re05/24/18 SEX: F Status: REG REF SPEC: [id number] CAROL: 05/24/18 [facility] DR: Sangita Pierson NP REQ: [id number] RECD: 05/24/18 STATUS: COMP _ SOURCE: URINE SPDESC: ORDERED: Urine Culture COMMENTS: [id number] Urine Source: Random Procedure Result Reported Site Urine Culture Final 05/26/18 0817 ML No Growth (<1,000 CFU/mL) * ML - Main Lab . END OF REPORT DEPARTMENT OF PATHOLOGY, [address] [place] [address] Lenard Woodard M.D. Director [facility] # [id number] Normal Range 180 to 914 Indeterminate Range 145 to 180 Deficient Range <145 4 ADDITIONAL INFORMATION This test was developed and its performance characteristics determined by [facility] in a manner consistent with CLIA requirements. This test has not been cleared or approved by the U.S. Food and Drug Administration. Test Performed by: [facility] [address] [place] [address] 5 Story Editor: [id number] 7 SEE RESULT BELOW Name: AUTUMN JOHNSON : [address]: Lakisha Pope MD Acct: [id number] Unit: [id number] AGE: 57 Location: [facility] Re04/07/18 SEX: F Status: DEP ER SPEC: [id number] CAROL: 04/07/18 [facility] DR: Lakisha Pope MD REQ: [id number] RECD: 04/07/18 STATUS: SCHUYLER MOODY DR: Sangita Pierson EDGER FEEDER _ SOURCE: URINE SPDESC: ORDERED: Urine Culture COMMENTS: [id number] Procedure Result Reported Site Urine Culture Final 04/10/18- 0740 ML Organism 1 STREPTOCOCCUS ANGINOSUS [place] Count 75-100,000 (Many) CFU/ML 1. STREPTOCOCCUS ANGINOSUS [facility].I.[facility]. RX --------- ------ Ampicillin <=0.06 S Penicillin <=0.03 S Meropenem <=0.06 S Cefepime <=0.25 S * Cefotaxime <=0.25 S Ceftriaxone <=0.25 S Levofloxacin 0.5 S Tetracycline >4 R Vancomycin 0.5 S * ML - Main Lab . END OF REPORT DEPARTMENT OF PATHOLOGY, [address] [place] [address] Lenard Woodard M.D. Director [facility] # [id number] 8 Because ethnic data is not always [...] 5 Kidney failure <15 (or dialysis) 9 [id number] 10 SEE RESULT BELOW Name: AUTUMN JOHNSON : [address]: Marilee Bauer MD Acct: [id number] Unit: [id number] AGE: 56 Location: [facility] Re04/06/17 SEX: F Status: DEP REF SPEC: [id number] CAROL: 04/06/17- SUBM DR: Marilee Bauer MD REQ: [id number] RECD: 04/06/171148 STATUS: ANJEL MOODY DR: Sangita Pierson EDGER FEEDER _ ORDERED: LEVEL 4 COMMENTS: [id number] FINAL DIAGNOSIS Colon, cecum, biopsy: -- Tubular [...] at Main Lab DEPARTMENT OF PATHOLOGY, [address] [place] [address] Lenard Woodard M.D. Director [facility] # [id number] 11 Because ethnic data is not always [...] 5 Kidney failure <15 (or dialysis) 17 [id number] 18 SEE RESULT BELOW Name: DIPESHNIDHIAUTUMN Hayder : [address]: Carmen Carrillo Acct: [id number] Unit: [id number] AGE: 56 Location: [facility] Re02/10/17 SEX: F Status: DEP ER SPEC: [id number] CAROL: 02/10/17 [facility] DR: Carmen Roberson DO REQ: [id number] RECD: 02/10/172914 STATUS: SCHUYLER MOODY DR: Sangita Pierson EDGER FEEDER _ SOURCE: URINE [facility]: ORDERED: Urine Culture COMMENTS: [id number] Procedure Result Reported Site Urine Culture Final 02/12/17- 0759 ML Organism 1 ESCHERICHIA COLI [place] Count 75-100,000 (Many) CFU/ML 1. ESCHERICHIA COLI [...] at Main Lab DEPARTMENT OF PATHOLOGY, [address] [place] [address] Lenard Woodard M.D. Director [facility] # [id number] 19 FASTING 10 HOUR 20 Desirable <150 Borderline high 150-199 High 200-499 Very High >500 21 Desirable <200 Borderline high 200-239 High >239 22 Low <40 Desirable: 40-60 High: >60 23 Desirable: <100 mg/dL Near Optimal: 100-129 mg/dL Borderline High: 130-159 mg/dL High: 160-189 mg/dL Very High: >189 mg/dL 24 FASTING 10 HOUR 25 [id number] 26 SEE RESULT BELOW Name: AUTUMN JOHNSON : [address]: Wes Neff MD Acct: [id number] Unit: [id number] AGE: 55 Location: [facility] Re04/20/16 SEX: F Status: REG REF SPEC: [id number] CAROL: 04/20/16-1149 [facility] DR: Wes Neff MD REQ: [id number] RECD: 04/20/16 STATUS: ANJEL MOODY DR: Sangita Pierson EDGER FEEDER _ ORDERED: LEVEL IV COMMENTS: [id number] FINAL DIAGNOSIS Stomach, polyps, biopsies: -- Hyperplastic [...] Signed (signature on file) Lenard Woodard MD 0773 END OF REPORT * ML=Testing performed at Main Lab DEPARTMENT OF PATHOLOGY, [address] [place] [address] Lenard Woodard M.D. Director [facility] # [id number] 27 Because ethnic data is not always [...] 28 SEE RESULT BELOW Name: AUTUMN JOHNSON Hayder : [address]: Sangita Pierson NP Acct: [id number] Unit: [id number] AGE: 55 Location: [facility] Re10/11/15 SEX: F Status: REG REF SPEC: [id number] CAROL: 10/11/15-[address]: Sangita Pierson NP REQ: [id number] RECD: 10/11/15 STATUS: COMP _ SOURCE: URINE SPDESC: ORDERED: Urine Culture Procedure Result Reported Site Urine Culture Final 10/13/15- 0858 ML Organism 1 NORMAL VENU [place] Count 1-10,000 (Few) CFU/ML * ML - MAIN LAB ([facility]) . END OF REPORT * ML=Testing performed at Main Lab DEPARTMENT OF PATHOLOGY, [address] [place] [address] Lenard Woodard M.D. Director [facility] # [id number] 29 SEE RESULT BELOW Name: AUTUMN JOHNSON Hayder : [address]: Sangita Pierson NP Acct: [id number] Unit: [id number] AGE: 55 Location: [facility] Re06/22/15 SEX: F Status: REG REF SPEC: [id number] CAROL: 06/22/15-[address]: Sangita Pierson NP REQ: [id number] RECD: 06/22/15 STATUS: COMP _ SOURCE: URINE SPDC: ORDERED: Urine Culture Procedure Result Verified Site Urine Culture Final 06/24/15- 1031 ML No Growth Day 2 (<1,000 CFU/mL) * ML - MAIN LAB ([facility]) . END OF REPORT * ML=Testing performed at Main Lab DEPARTMENT OF PATHOLOGY, [address] [place] [address] Lenard Woodard M.D. Director [facility] # [id number] 30 Because ethnic data is not always [...] and in selective patients <6.0%.Please refer to [place] [employer] Diabetic care guidelines for further information. 32 Test Performed by: [place] [address] Serology Technician: Avery Kasper II, M.D., Ph.D. 33 SEE RESULT BELOW Name: AUTUMN JOHNSON : [address]: Sangita Pierson NP Acct: [id number] Unit: [id number] AGE: 54 Location: [facility] Re02/17/15 SEX: F Status: REG REF SPEC: [id number] CAROL: 02/17/[address]: Sangita Pierson NP REQ: [id number] RECD: 02/17/15 STATUS: SOUT _ ORDERED: THIN PREP NON G FINAL DIAGNOSIS Urine, voided: Negative for malignant cells. URINE VOID CLINICAL HISTORY Hematuria GROSS DESCRIPTION 7.5 mls of clear yellow voided urine. Signed (signature on file) Prachi Kevin MD 0949 END OF REPORT * ML=Testing performed at Main Lab DEPARTMENT OF PATHOLOGY, [address] [place] [address] Lenard Woodard M.D. Director [facility] # [id number] 34 SEE RESULT BELOW Name: AUTUMN JOHNSON Hayder : [address]: Sangita Pierson NP Acct: [id number] Unit: [id number] AGE: 54 Location: [facility] Re02/12/15 SEX: F Status: REG REF SPEC: [id number] CAROL: 02/12/15-[address]: Sangita Pierson NP REQ: [id number] RECD: 02/12/15 STATUS: COMP _ SOURCE: URINE [facility]: ORDERED: Urine Culture Procedure Result Verified Site Urine Culture Final 02/14/15- 833 ML No Growth Day 2 (<1,000 CFU/mL) * ML - MAIN LAB ([facility]) . END OF REPORT * ML=Testing performed at Main Lab DEPARTMENT OF PATHOLOGY, [address] [place] [address] Lenard Woodard M.D. Director [facility] # [id number] 35 Because ethnic data is not always [...] [address]: Salbador Horton NP Acct: [id number] Unit: [id number] AGE: 54 Location: [facility] Re12/24/14 SEX: F Status: REG REF SPEC: [id number] CAROL: 12/24/14-1604 [facility] DR: Salbador Horton NP REQ: [id number] RECD: 12/24/14-1800 STATUS: COMP _ SOURCE: HUBER [facility]: ORDERED: Fabiola Cordero A B Procedure Result Verified Site Rapid [...] is desired. * ML - MAIN LAB ([facility]) . END OF REPORT * ML=Testing performed at Main Lab DEPARTMENT OF PATHOLOGY, [facility] [employer] [place], [place] [address] Lenard Woodard M.D. Director [facility] # [id number] 37 RUN DATE: 12/03/14 [facility] LAB LIVE PAGE 1 RUN TIME: [address] [facility] [employer] [place], [place] [address] Specimen Inquiry Name: AUTUMN JOHNSON : [address]: Sangita Pierson NP Acct: [id number] Unit: [id number] AGE: 54 Location: [facility] Re12/01/14 SEX: F Status: REG REF SPEC: [id number] CAROL: 12/01/14-[address]: Sangita Pierson NP REQ: [id number] RECD: 12/01/14 STATUS: COMP _ SOURCE: URINE SPDESC: ORDERED: Urine Culture QUERIES: Provider Requisition # [id number] Procedure Result Verified Site Urine Culture Final 12/03/14- 1156 ML No Growth Day 2 (<1,000 CFU/mL) * ML - MAIN LAB ([facility]) . END OF REPORT * ML=Testing performed at Main Lab DEPARTMENT OF PATHOLOGY, [address] [place] [address] Lenard Woodard M.D. Director [facility] # [id number] 38 Because ethnic data is not always readily [...] 15-29 5 Kidney failure <15 (or dialysis) 39 Desirable <150 Borderline high 150-199 High 200-499 Very High >500 40 Desirable <200 Borderline high 200-239 High >239 41 Low <40 Desirable: 40-60 High: >60 42 Desirable <100 Near Optimal 100-129 Borderline high 130-159 High 160-189 Very High >189 43 Because ethnic data is not always [...] <15 (or dialysis) 44 RUN DATE: 07/14/12 [facility] LAB LIVE PAGE 1 RUN TIME: 1001 [address] [place], [place] [address] Specimen Inquiry Name: AUTUMN JOHNSON Hayder : [address]: Juventino Slade DO Acct: [id number] Unit: [id number] AGE: 52 Location: [facility] Re07/12/12 SEX: F Status: DEP ER SPEC: [id number] CAROL: 07/12/12-1305 [facility] DR: Cayla Breen PA REQ: [id number] RECD: 07/12/124147 STATUS: SCHUYLER MOODY DR: Sangita Pierson DO, Martin K. _ SOURCE: THROAT SPDESC: ORDERED: Throat Beta Str Procedure Result Verified Site Throat Beta Strep Culture Final 07/14/12- 1001 ML Negative For Group A Beta Streptococcus END OF REPORT * ML=Testing performed at Main Lab DEPARTMENT OF PATHOLOGY, [address] [place] [address] Lenard Woodard M.D. Director [facility] Permit #[id number] 45 Desirable: Less than 200 MG/DL Borderline-High [...] has been shown to interfere with the Jensimonik-Risingsun method for measuring total bilirubin. Samples from [...] <15 (or dialysis) 50 Test Performed by: [place] [address] Serology Technician: Renan Swan III, M.D. R 51 -- REFERENCE VALUE -- 25-HYDROXY D TOTAL (D2+D3) Optimum levels in the normal population are 25-80 Test Performed by: [place] [address] Serology Technician: Renan Swan III, M.D. R 52 ---- RUN DATE: 03/22/12 [facility] NMI LIVE PAGE 1 RUN TIME: 1330 Specimen Inquiry RUN USER: INTERFACE -- Name: AUTUMN JOHNSON#: [id number] Status: REG REF Re03/21/12 Age/Sex: 51/F Unit#: [id number] Location: [address] [place] [address].O.B. : 60 -- Specimen: [id number] Spec Date:03/21/12 Dr: Wes herbert MD Spec Type: SURGICAL P Received:03/21/12-1242 Copies to: Sangita Rebollarkatey [facility] SPECIMEN 1) HEPATIC FLEXURE BIOPSY 2) [...] specimen is received in formalin labelled Autumn Huertaus, Descending Colon Biopsy, and consists of two [...] 03/22/12 1330 -- -- DEPARTMENT OF PATHOLOGY, [address] [place] [address] [facility] Permit #[id number] Mickie Topete M.D. Four Roll Calender Operator mohit -- 53 ---- RUN DATE: 12/26/11 [facility] NMI LIVE PAGE 1 RUN TIME: 1405 Specimen Inquiry RUN USER: INTERFACE -- Name: AUTUMN JOHNSON#: [id number] Status: REG REF Re12/22/11 Age/Sex: 51/F Unit#: [id number] Location: [facility] : 60 -- Specimen: [id number] Spec Date:12/22/11 [facility] Dr: Sangita Pierson [facility] Spec Type: SURGICAL P Received:12/25/11 Copies [...] 1403 -- -- DEPARTMENT OF PATHOLOGY, [address] [place] [address] [facility] Permit #[id number] Lenard Woodard M.D. Director Pj Iniguez M.D. Four Roll Calender Operator Dir mohit -- 54 Anion gap measurement may be of limited value in the presence of any alkalosis, especially in a combined acid base disorder. . 55 A metabolite of Naproxen, O-desmethylnaproxen, has been shown to interfere with the Jendrassik-Risingsun method for measuring total bilirubin. Samples from [...] has been shown to interfere with the Jendrassik-Risingsun method for measuring total bilirubin. Samples from [...] <15 (or dialysis) 60 RUN DATE: 12/22/11 [facility] NMI LIVE PAGE 1 RUN TIME: 820 Inquiry RUN USER: INTERFACE Name: AUTUMN JOHNSON#: [id number] Status: DEP ER Re12/17/11 Age/Sex: 51/F Unit#: [id number] Location: [facility] : 60 SPEC #: [id number] CAROL: 12/17/11 STATUS: COMP REQ #: [id number] RECD: 12/17/[address]: [facility] SOURCE: BLOOD ENTR: 12/17/[address]: [facility]ENO ORDERED: BLOOD CULTURE ACT WKST: 12/18/11 #1 Procedure Result Verified Site > AEROBIC CULTURE BOTTLE Final 12/22/11820 ML NO GROWTH AFTER 5 DAYS > ANAEROBIC CULTURE BOTTLE Final 12/22/11820 ML NO GROWTH AFTER 5 DAYS ML - [facility] Permit #[id number] [address] [place] [address] DEPARTMENT OF PATHOLOGY, [address] [place] [address] [facility] Permit #[id number] Lenard Woodard M.D. Director Pj Iniguez M.D. Check Totaler 61 Recommended INR for Patients on Oral [...] has been shown to interfere with the Jendrassik-Risingsun method for measuring total bilirubin. Samples from [...] 189 MG/DL 69 ---- RUN DATE: 05/25/11 [facility] NMI LIVE PAGE 1 RUN TIME: 1606 Specimen Inquiry RUN USER: INTERFACE -- Name: AUTUMN JOHNSON#: [id number] Status: REG REF Re05/24/11 Age/Sex: 50/F Unit#: [id number] Location: [facility] : 60 -- Specimen: [id number] Spec Date: 05/24/[address]: Sangita del toro [facility] Spec Type: CYTOLOGY Received: 05/25/11-937 Copies to: SOURCE ECTOCERVICAL/ENDOCERVICAL Thin Prep with Reflex HPV Test PATIENT INFORMATION ACTUAL COLLECTION DATE: 05/24/11 ? No POST MENOPAUSAL? Yes HYSTERECTOMY? No DATE OF PRIOR SPECIMEN: 03/18/10 ADEQUACY OF SPECIMEN Satisfactory for evaluation * Transformation zone component identified * DIAGNOSIS NEGATIVE FOR INTRAEPITHELIAL LESION OR MALIGNANCY * This Pap test was evaluated with the assistance of the TragaraPrep Pap Test Imaging System. The Pap Smear [...] years. Initial evaluation performed by Reymundo DEL VALLE(ASCP) 05/25/11 Final Interpretation electronically signed by: Reymundo DEL VALLE(ASCP) 05/25/11 1606 -- -- DEPARTMENT OF PATHOLOGY, [address] [place] [address] [facility] Permit #[id number] Lenard Woodard M.D. Director Pj Iniguez M.D. Four Roll Calender Operator Dir mohit -- 70 Anion gap measurement may be of limited value in the presence of any alkalosis, especially in a combined acid base disorder. . 71 A metabolite of Naproxen, O-desmethylnaproxen, has been shown to interfere with the Jendrkoryik-Whit method for measuring total bilirubin. Samples from [...] (or dialysis) Procedures Date Code Description Status 09/06/2018 [id number] Mammogram Completed 08/30/2017 [id number] Mammogram Completed 04/13/2017 [id number] Mammogram Completed 04/06/2017 [id number] Colonoscopy Completed 04/06/2017 64911 Colonoscopy Flexible Remove Tumor/Polyp/Lesion Snare Completed Technique 04/06/2017 40384 Moderate Sedation Services; Same Phys Intl 15 Mins; PT Completed >=5 Years 04/06/2017 14642 Moderate Sedation Services; Same Phys Each Additional Completed 15 Mins 07/29/2015 [id number] Bone Mineral Density Test Completed 07/29/2015 [id number] Mammogram Completed 02/12/2015 25431 ECHO Transthorasic Realtime 2D W Doppler & Color Flow Completed Hosp 02/13/2014 55322698 Mammogram Completed 12/26/2013 96262 ECHO Transthorasic Realtime 2D W Doppler & Color Flow Completed Hosp 06/24/2012 [id number] Mammogram Completed 03/22/2012 88530 ECHO Transthoracic, Real-Time 2D With Doppler And Completed Color Flow 03/21/2012 35680390 Colonoscopy Completed 12/22/2011 57128 Biopsy Skin Lesion Single Completed 06/30/2011 032578656 Bone Mineral Density Test Completed 2011 71774509 Mammogram Completed 2010 43510053 Mammogram Completed Encounters Type Date Location Provider Dx Diagnosis Office Visit 07/01/2018 [facility] Seth Petty, N63.10 Unspecified lump in 9:00a [facility] the right breast, AT [place] unspecified quadrant Office Visit 05/24/2018 [facility] Internal Sangita Pierson, Z00.01 Encounter for 2:20p Medicine - N.P. general adult [facility] medical exam w abnormal findings Z12.31 Encntr [...] Cleo Petty M.D. in the right AT [place] breast, unspecified quadrant S30.861A Insect bite (nonvenomous) of abdominal wall, init encntr Office Visit 09/14/2017 [facility] Seth Powell N63.10 Unspecified lump 9:00a [facility] in the right [facility] AT [place] breast, unspecified quadrant Office Visit 07/26/2017 [facility] Internal Salbador Horton NP K11.20 Sialoadenitis, 3:20p Medicine unspecified Office Visit 07/19/2017 [facility] Internal Latesha N63.14 Unspecified lump 3:30p Joseph Alex M.D. in the right breast, lower inner quadrant Office Visit 06/08/2017 [facility] Internal Sangita Pierson, S20.01xD Contusion of 4:00p Medicine N.P. 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 intertrigo J20.9 Acute bronchitis, unspecified Office Visit 01/24/2016 1:20p [facility] Internal Salbador Sol, EDGER FEEDER J20.9 Acute bronchitis, Medicine unspecified Office Visit 12/17/2015 3:00p [facility] Internal Sangita Pierson, J20.9 Acute bronchitis, Medicine N.P. unspecified Office Visit 12/13/2015 4:00p [facility] Internal Sangita Pierson, H66.92 Otitis media, Medicine N.P. unspecified, left ear J20.9 Acute bronchitis, unspecified Office Visit 10/11/2015 11:40a [facility] Internal Sangita Pierson, B37.3 Candidiasis of Medicine N.P. vulva and vagina Office Visit 09/29/2015 3:00p [facility] Internal Sangita Pierson, J01.00 Acute maxillary Medicine N.P. sinusitis, unspecified Office Visit 09/20/2015 2:40p [facility] Sangita Pierson, J06.9 Acute upper Medicine N.P. respiratory infection, unspecified Office Visit 08/20/2015 11:40a [facility] Sangita Pierson, L30.4 Erythema Medicine N.P. intertrigo Office Visit 2015 3:20p [facility] Sangita Pierson, Z00.00 Encntr for general Medicine N.P. 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 Unspecified 578.1 Blood In Stool Melena V10.05 Personal History Malignant Neoplasm Large Intestine Office Visit 02/12/2015 11:40a [facility] Sangita Pierson, 599.0 UTI Urinary Medicine N.P. Tract Infection Site Not Spec 599.71 Gross Hematuria 788.41 Urinary Frequency Office Visit 12/24/2014 3:20p [facility] Salbador Horton, 465.9 URI Upper Medicine EDGER FEEDER Respiratory Infections Acute Unspec Sites 780.60 Fever, Unspecified Office Visit 12/01/2014 10:20a [facility] Sangita Pierson, 599.70 Hematuria, Medicine N.P. Unspecified 112.1 Candidiasis The Vulva & Vagina Office Visit 2014 2:40p [facility] Sangita Pierson, 465.9 URI Upper Medicine N.P. Respiratory Infections Acute Unspec Sites Office Visit 04/28/2014 3:20p [facility] Sangita Pierson, 719.47 Pain Joint Ankle & Medicine N.P. Foot Office Visit 09/08/2013 4:00p [facility] Sangita Pierson, 627.1 Postmenopausal Medicine N.P. Bleeding Office Visit 01/09/2013 3:40p [facility] Jayne Morrisonon, 466.0 Bronchitis Acute Medicine M.D., FACP Office Visit 08/29/2012 9:40a [facility] Sangita Pierson, 611.71 Mastodynia Medicine N.P. Office Visit 07/01/2012 11:00a [facility] Sangita Pierson, 244.9 Hypothyroidism Other Medicine N.P. Unspec 272.4 Hyperlipidemia Other Unspec Office Visit 06/05/2012 10:20a [facility] Sangita Pierson, V70.0 Examination Medicine N.P. General Medical Routine AT Health Care Facility V72.31 Routine Paper Plate Machine Tender Examination V76.10 Screening For Malignant Neoplasm Breast 733.90 Bone & Cartilage Disorder Unspec 244.9 Hypothyroidism Other Unspec 457.1 Lymphedema Other 272.4 Hyperlipidemia Other Unspec 345.90 Epilepsy Unspec W/O Intractable 235.5 Neoplasm Uncertain Digestive Other & Unspec V04.81 Need For Prophylactic Vaccination & Inoculation/Influenza 389.9 Hearing Loss Unspec Office Visit 05/14/2012 11:40a [facility] Sangita Pierson, 719.47 Pain Joint Medicine N.P. Ankle & Foot 627.1 Postmenopausal Bleeding Office Visit 04/22/2012 11:00a [facility] Sangita Varn, 782.1 Rash & Other Medicine N.P. Nonspec Skin Eruption 112.1 Candidiasis The Vulva & Vagina Office Visit 04/09/2012 2:20p [facility] Sangita Varn, 782.1 Rash & Other Medicine N.P. Nonspec Skin Eruption 686.9 Local Infection Of Skin And Subcutaneous Tissue Unspec Office Visit 03/28/2012 2:40p [facility] Jayne Viola, 461.9 Sinusitis Acute Medicine M.DDidi, FACP Unspec Office Visit 12/26/2011 4:20p [facility] Sangita Varn, 782.3 Edema Medicine N.P. Office Visit 12/22/2011 11:20a [facility] Sangita Varn, 709.9 Skin & Subcutaneous Medicine N.P. Tissue Disorders Unspec 782.3 Edema Office Visit 12/19/2011 10:00a [facility] Sangita Varn, 709.9 Skin & Subcutaneous Medicine N.P. Tissue Disorders Unspec 782.3 Edema Office Visit 07/12/2011 DO Not Use Sangita 782.3 Edema 1:00p Press Clipper-White Salmon Varn, N.P. Office Visit 06/06/2011 DO Not Use Sangita 244.9 Hypothyroidism 2:20p [employer] Clipper[employer] Salmon Varn, N.P. Other Unspec Office Visit 05/24/2011 DO Not Use Sangita V70.0 Examination General 3:00p Press Clipper-White Salmon Varn, N.P. Medical Routine AT Health Care Facility V72.31 Routine Paper Plate Machine Tender Examination V76.10 Screening For Malignant Neoplasm Breast V04.81 Need For Prophylactic Vaccination & Inoculation/Influenza 272.4 Hyperlipidemia Other Unspec 345.90 Epilepsy Unspec W/O Intractable 235.5 Neoplasm Uncertain Digestive Other & Unspec V06.1 Enayspprtt-Zuyupsk-Hixxmjwi Combined (DTaP) 733.90 Bone & Cartilage Disorder Unspec Office Visit 04/27/2011 DO Not Use Latesha 782.1 Rash & Other 12:40p Ai Alex M.D. Nonspec Skin Eruption Office Visit 04/05/2011 DO Not Use Sangita Varn, 782.3 Edema 4:00p Press Clipper-White Salmon N.P. Office Visit 06/03/2010 DO Not Use Sangita Varn, 795.01 Pap Smear 2:30p Press Clipper-White Salmon N.P. Atypical Squamous Cell Undetermined Sig (Asc-US) Office Visit 05/23/2010 DO Not Use Sangita Pierson, V72.31 Routine Paper Plate Machine Tender 10:00a Press Clipper-White Salmon N.P. Examination Office Visit 03/11/2010 DO Not Use Jayne Rod, 780.39 Convulsions Other 2:00p Ai Corado, FACP 235.5 Neoplasm Uncertain Digestive Other & Unspec Plan of Treatment 12/25/2018 - Sangita Pierson, N.P.M25.551 Pain in right hipNew Therapy:Physical TherapyComments:For your hip pain I have ordered physical therapy. Please keep your appointment with your specialistin January.For pain you may find taking Ibuprofen 600 mg, every 6 hours, helpful. Be sure to take this with food.L30.4 Erythema intertrigoNew Medication:Ibuprofen 600 mg - 1 by mouth every 6 hours as needed for painComments:Your rash is looking better. If you should get a recurrence you may use the Nystatin powder.J01.90 Acute sinusitis, unspecifiedComments:Your sinus infection seems much improved. I would advise you to continue to use your Fluticasone nasal spray for another week or two.
[2018-12-28 08:38] VITALS: BP 136/66
--- NOTE | 2018-12-28 08:51 | UC ---
Abdominal Pain Female HPI - HPI Summary HPI Summary: This patient is a 58-year-old female who presents to the urgent care with chief complaint of having dysuria, hematuria, urinary frequency and urgency since yesterday. She reports that these symptoms are similar to as when she has a urinary tract infection. She denies any abdominal pain but a slight lower abdominal/pelvic discomfort. She also reports that the urine has an strong smell similar as when she has a UTI. She denies any fever, denies any chills, denies any back pain, denies any nausea vomiting, diarrhea or constipation. She has no other complaints. - History of Current Complaint Chief Complaint: UCGU Stated Complaint: URINARY ISSUE Time Seen by Provider: 12/28/18 08:24 Hx Obtained From: Patient Onset/Duration: Gradual Onset Timing: Constant Severity Initially: Mild Severity Currently: Moderate Pain Intensity: 3 Allergies/Adverse Reactions: Allergies Allergy/AdvReac Type Severity Reaction Status Date / Time No Known Allergies Allergy Verified 12/28/18 08:38 Home Medications: Home Medications Loperamide CAP* [Imodium CAP*] 1 tab PO DAILY PRN 12/28/18 [History Confirmed ] PMH/Surg Hx/FS Hx/Imm Hx Previously Healthy: Yes Endocrine History: Hypothyroidism Neurological History: Seizures Cancer History: Other - Anal Cancer - Surgical History Surgical History: Yes Surgery Procedure, Year, and Place: colon radiation. full hysterectomy. D&C. Brain surgery - Family History Known Family History: Positive: Hypertension - Mother and sister, Other - Father - lymphoma - Social History Alcohol Use: None Substance Use Type: None Smoking Status (MU): Former Smoker Type: Cigarettes Length of Time of Smoking/Using Tobacco: 8 years Have You Smoked in the Last Year: No When Did the Patient Quit Smoking/Using Tobacco: 1998 Review of Systems All Other Systems Reviewed And Are Negative: Yes Constitutional: Positive: Negative Skin: Positive: Negative Eyes: Positive: Negative ENT: Positive: Negative Respiratory: Positive: Negative Cardiovascular: Positive: Negative Gastrointestinal: Positive: Negative Genitourinary: Positive: Dysuria, Hematuria, Frequency, Urgency Motor: Positive: Negative Neurovascular: Positive: Negative Musculoskeletal: Positive: Negative Neurological: Positive: Negative Psychological: Positive: Negative Is Patient Immunocompromised?: No Physical Exam - Summary Physical Exam Summary: VITAL SIGNS: Reviewed. GENERAL: Patient is a well developed and nourished female who is lying comfortable in the stretcher. Patient is not in any acute respiratory distress. HEAD AND FACE: No signs of trauma. No ecchymosis, hematomas or skull depressions. No sinus tenderness. EYES: PERRLA, EOMI x 2, No injected conjunctiva, no nystagmus. EARS: Hearing grossly intact. Ear canals and tympanic membranes are within normal limits. MOUTH: Oropharynx within normal limits. NECK: Supple, trachea is midline, no adenopathy, no JVD, no carotid bruit, no c- spine tenderness, neck with full ROM. CHEST: Symmetric, no tenderness at palpation LUNGS: Clear to auscultation bilaterally. No wheezing or crackles. CVS: Regular rate and rhythm, S1 and S2 present, no murmurs or gallops appreciated. ABDOMEN: Soft, non-tender. No signs of distention. No rebound no guarding, and no masses palpated. Bowel sounds are normal. EXTREMITIES: FROM in all major joints, no edema, no cyanosis or clubbing. NEURO: Alert and oriented x 3. No acute neurological deficits. Speech is normal and follows commands. SKIN: Dry and warm Triage Information Reviewed: Yes Appearance: Well-Appearing, No Pain Distress, Well-Nourished Vital Signs: Initial Vital Signs Temp 97.2 F 12/28/18 08:33 Pulse 89 12/28/18 08:33 Resp 18 12/28/18 08:33 BP 136/66 12/28/18 08:33 Pulse Ox 98 12/28/18 08:33 Abd Pain Female Course/Dx - Course Course Of Treatment: Urinalysis: positive for blood and leukoesterase likely secondary to an acute UTI. Therefore the patient was given Bactrim for 7 days. Patient will increase her water intake and follow with the primary care physician in next 2-3 days. Patient is hemodynamically stable alert oriented 3. She was recommended to return to the ED or go to the emergency department if the symptoms do not improve. Patient understands and agrees. - Differential Dx/Diagnosis Provider Diagnosis: UTI (urinary tract infection) Discharge - Sign-Out/Discharge Documenting (check all that apply): Patient Departure All imaging exams completed and their final reports reviewed: No Studies - Discharge Plan Condition: Stable Disposition: HOME Prescriptions: Sulfamethox/Trimethoprim DS* [Bactrim DS 800/160 TAB*] 1 tab PO BID #14 tab Patient Education Materials: Urinary Tract Infection in Women (DC) Referrals: Sangita Pierson NP [Primary Care Provider] - Additional Instructions: Take medications as instructed Increase your fluid intake Return to the UC if symptoms worsen - Billing Disposition and Condition Condition: STABLE Disposition: Home
--- NOTE | 2018-12-29 15:20 | UC ---
- Progress Note Progress Note: 12/29/2018 Urine culture final report: no growth Pt Rx Bactrim Po for possible UTI. Please call back Pt and inform her of results. Advised to stop taking antibiotic Thank you Edu [email or web address] PA-c Course/Dx - Diagnoses Provider Diagnoses: UTI (urinary tract infection) Discharge - Sign-Out/Discharge Documenting (check all that apply): Post-Discharge Follow Up All imaging exams completed and their final reports reviewed: No Studies - Discharge Plan Condition: Stable Disposition: HOME Prescriptions: Sulfamethox/Trimethoprim DS* [Bactrim DS 800/160 TAB*] 1 tab PO BID #14 tab Patient Education Materials: Urinary Tract Infection in Women (DC) Referrals: Sangita Pierson NP [Primary Care Provider] - Additional Instructions: Take medications as instructed Increase your fluid intake Return to the UC if symptoms worsen - Billing Disposition and Condition Condition: STABLE Disposition: Home - Attestation Statements Provider Attestation: I was available for consult. This patient was seen by the TUNDE. The patient was not presented to, seen by, or examined by me. -Flavio
== END 2018-12-28 09:06 | disposition home or self-care (01) ==
LOC: UCEAST 08:21
DX: N39.0 Urinary tract infection, site not specified (principal); Z85.048 Personal history of other malignant neoplasm of rectum, rectosigmoid junction, and anus
CPT/HCPCS: 81003; 87086; 99212; G0463

== ENCOUNTER 2019-06-04 16:38 | Emergency (ER) | payer BC, MEDICARE ==
--- OUTSIDE RECORDS SUMMARY | 2019-06-04 16:44 | XMS REPORT | Summary of Care ---
:1960 Author Organization [facility] Address [address] [place] [address] Care Team Providers Name Role Phone Latesha Alex MD Primary Care Provider Sangita Pierson NP Unavailable Reason for Visit Reason Comments Hip Pain Encounter Details Date Type Department Care Team Description 04/18/2019 Office Visit [facility] - Peri Lay, PT Right hip pain [address] (Primary Dx) Therapy [address] [place] [address] [address] [phone] [phone] Allergies No Known Allergiesdocumented as of this encounter (statuses as of 04/18/2019) Medications Medication Sig Dispensed Refills Start Date End Date Status Nystatin Oral Powder Take by mouth. 0 Active Elastic Bandages & by Does not 0 Active Supports (MEDICAL apply route. COMPRESSION STOCKINGS) Does not apply Misc levothyroxine Take 100 mcg by 0 Active (SYNTHROID) 100 MCG Oral mouth BEFORE Tab BREAKFAST. estrogens, conjugated Take 0.3 mg by 0 Active (PREMARIN) 0.3 MG Oral mouth DAILY. Tab Calcium Take by mouth. 0 Active Carbonate-Vitamin D (CALTRATE 600+D PO) Multiple Take by mouth. 0 Active Vitamins-Minerals (CENTRUM SILVER PO) divalproex sodium Take 250 mg by 0 Active (DEPAKOTE) 250 MG Oral mouth THREE Tab EC TIMES DAILY. lamotrigine (LAMICTAL) Take 100 mg by 0 Active 100 MG Oral Tab mouth DAILY. 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 documented as of this encounter Last Filed Vital Signs Not on filedocumented in this encounter Progress Notes Peri Lay, PT - 04/18/2019 11:00 AM EDT [facility] Treatment Note Outpatient Physical Therapy Services [facility] [address] [place] [id number] Treatment Number: 9 Referring Physician: Rojas Gaytan Primary Diagnosis: ICD-9-CM ICD-10-CM 1. Right hip pain 719.45 M25.551 Time In: 1100 Time Out: 1130 Total Session Minutes: 30 Pain at Start of Care: 08/15 Pain at End of Care: 08/15 Subjective Comments: Cant get shoes on or flex the hip to put pants on or shave without pain. Does non-reciprocal stairs due to pain. Interventions: Therapeutic Exercises (22870) Number of Exercises?: 8 Total Minutes (all Therapeutic Exercise): 30 Exercise #1 Exercise Name: Prone quad stretch Reason for Exercise: Flexibility Location/Body Area: Hip Sets/Reps: 3x30 seconds Exercise #2 Exercise Name: prone on elbows Reason for Exercise: Flexibility Location/Body Area: Hip Sets/Reps: 3x30 seconds Exercise #3 Exercise Name: pricilla stretch Reason for Exercise: Flexibility Location/Body Area: Hip Sets/Reps: 3x30 seconds Exercise #5 Exercise Name: piriformis stretch Reason for Exercise: Flexibility Location/Body Area: Hip Sets/Reps: 3x30 seconds Exercise #6 Exercise Name: bridge Reason for Exercise: Strengthening Location/Body Area: Hip Sets/Reps: 10 Exercise #7 Exercise Name: hamstring stretch Reason for Exercise: Flexibility Location/Body Area: Hip Sets/Reps: 3x30 seconds Assessment: Patient demonstrates good recall of HEP. With knees flexed the left LE appears shorter than right. Stands flexed at her trunk 30 degrees. Discussed posture and standing against a wall for reference which she appears to understand. Patient also reports ongoing difficulty in stairs, putting shoes on (ER, flexion), washing her leg or putting on pants. Skilled Physical Therapy services arerequired to address ongoing functional and objective limitations/impairments including decreased hipflexor and piriformis length, decreased core and hip strength, impaired posture. Plan for Next Visit: Continue per POC with lots of hip flexor and piriformis stretches and advance strengthening as tolerated. Total UNTIMED Code Treatment Minutes: Total TIMED Code Treatment Minutes: 30 Total Treatment Minutes: 30 Author: Peri Lay, PT 04/18/2019 11:20 documented in this encounter Plan of Treatment Date Type Specialty Care Team Description 05/02/2019 Office Visit Physical Therapy Peri Lay, PT [address] [place] [address] [phone] Health Maintenance Due Date Last Done Comments MEDICARE ANNUAL WELLNESS VISIT 1960 PAP SMEAR 1960 PNEUMOCOCCAL 0-64 YRS (1 of 3 - 1966 PCV13) DEPRESSION SCREENING 1972 HIV SCREENING 1975 DIABETES SCREENING 1978 LIPID DISORDER SCREENING 1978 HEPATITIS C SCREENING 2000 MAMMOGRAM (SCREENING) 2000 COLONOSCOPY SCREENING 2010 ZOSTER IMMUNIZATION SERIES (1 of 2) 2010 INFLUENZA VACCINE (#1) 2019 HPV IMMUNIZATION SERIES Aged Out No longer eligible based on patient's age to complete this topic MENINGOCOCCAL VACCINE IMM Aged Out No longer eligible based on patient's age to complete this topic documented as of this encounter Results Not on filedocumented in this encounter Visit Diagnoses Diagnosis Right hip pain - Primary Pain in joint, pelvic region and thigh documented in this encounter Insurance Payer Benefit Plan / Subscriber ID Effective Dates Phone Address Type Group MEDICARE MEDICARE PART A & xxxxxxxxxxx 1996-Present Medicare B [employer] BLUE xxxxxxxxxxxx 2014-Present [employer] CROSS PPO [employer]BS xxxxxxxxxxxx Effective for all [employer] medic documented as of this encounter
--- OUTSIDE RECORDS SUMMARY | 2019-06-04 16:44 | XMS REPORT | Summary of Care ---
:1960 Author Organization [facility] Address [address] [place] [address] Care Team Providers Name Role Phone Latesha Alex MD Primary Care Provider Sangita Pierson NP Unavailable Reason for Visit Reason Comments Hip Pain Encounter Details Date Type Department Care Team Description 05/02/2019 Office Visit [facility] - Peri Lay, PT Right hip pain [address] (Primary Dx) Therapy [address] [place] [address] [address] [phone] [phone] Allergies No Known Allergiesdocumented as of this encounter (statuses as of 05/02/2019) Medications Medication Sig Dispensed Refills Start Date [...] as of this encounter (statuses as of 05/02/2019) Active Problems Problem Noted Date Trochanteric bursitis [...] as of this encounter (statuses as of 05/02/2019) Social History Tobacco Use Types Packs/Day Years [...] encounter Progress Notes Peri Lay, PT - 05/02/2019 11:00 AM EDT [facility] Progress Note Outpatient Physical Therapy [facility] [address] [place] [phone] Patient: Autumn Vega : 1960 Date of Service: 05/02/2019 Referring Physician: Rojas Gaytan This progress report is for dates 01/09/19 to 05/02/2019. Total Visits Attended: 10 Time In: 1100 Time Out: 1130 ICD-9-CM ICD-10-CM 1. Right hip pain 719.45 M25.551 Subjective: Autumn Vega is a 58-y.o.-year-old female with groin and lateral hip pain. Doesn't feel like there is any improvement. Does the exercises daily. Prior Functional Status: Prior Function Comment: independent Current Functional Status: Current Function Comment: Modifies ADL's d/t pain;unable to walk long distances Abuse/Neglect Screening Are you being threatened or hurt by anyone? : No Objective: Palpation: Pain with palpation to the greater trochanter and IT band Stands in trunk flexion Hip AROM: Right Hip Left Hip Hip Flexion WNL degrees WNL degrees Hip Abduction WNL degrees WNL degrees Hip Ext. Rotation 32 degrees, 48 now* 52 degrees Hip Int. Rotation 20 degrees, 38 now 25 degrees Hip Extension 5 degrees, 5 degrees 5 degrees Hip PROM: Right Hip Left Hip Hip Flexion WNL degrees WNL degrees Hip Abduction WNL degrees WNL degrees Hip Ext. Rotation 45 degrees, 48 60 degrees Hip Int. Rotation 20 degrees, 38 20 degrees Hip Extension 5 degrees, 8 with anterior pain (iliopsoas) 5 degrees Hip Strength: Right Hip Left Hip Hip Flexion 3+/5 4/5 Hip Abduction 3/5 3+/5 Hip Ext. Rotation 3+/5 4/5 Hip Int. Rotation 4+/5 4+/5 Hip Extension 3+/5 4/5 Special Tests: Right Hip Left Hip Chi Test Positive for IT band, iliopsoas, rectus Positive for IT band, iliopsoas, rectus Ricardo's Test positive Hamstring Length Positive for hamstring shortening Positive for hamstring shortening Outcome Tools Used: FOTO Interventions: Therapeutic Exercise (Timed) (70900);Ultrasound (Timed) (50903);Manual Therapy ( Timed) (91252);MoistHot Pack (48102);Cold Pack (15750) The above planned interventions may be used in Physical Therapy treatment of her condition, but will not be limited to these interventions as warranted by the Physical Therapist. Was Physical Therapy treatment performed at this visit? Yes: Interventions: Therapeutic Exercises (20240) Total Minutes (all Therapeutic Exercise): 30 Exercise #1 Exercise Name: Prone quad stretch Reason for Exercise: Flexibility Location/Body Area: Hip Sets/Reps: 3x30 seconds Exercise #3 Exercise Name: chi stretch Reason for Exercise: Flexibility Location/Body Area: Hip Sets/Reps: 3x30 seconds Exercise #4 Exercise Name: standing quad stretch Reason for Exercise: Flexibility Location/Body Area: Hip Sets/Reps: 3x30 Exercise #5 Exercise Name: piriformis stretch Reason for Exercise: Flexibility Location/Body Area: Hip Sets/Reps: 3x30 seconds Exercise #6 Exercise Name: bridge Reason for Exercise: Strengthening Location/Body Area: Hip Sets/Reps: 10 Exercise #8 Exercise Name: butterfly stretch Reason for Exercise: Flexibility Location/Body Area: Hip Sets/Reps: 3x30 seconds Goals/Goal Status:Short term goals to be achieved within 3 weeks: 1. Patient will demonstrate independence with HEP-partial 2. Patient will tolerate lifting her hip into flexion without UE assist to put socks on-not met FPC goals to be achieved within 6-8 weeks: 1. Patient will tolerate going up stairs to get in to the house with reciprocal gait- paritally 2. Patient will tolerate putting shoes and socks on with less pain- not met Assessment Status: Patient presents with right lateral hip pain and anterior hip pain. Improved IR and ER range but no improvement subjectively. Displays decreased hip flexor, piriformis, adductor, and hamstring length with decreased lateral hip and core strength and impaired gait and posture Expresses compliance with HEP but requires cueing for body mechanics with all stretches. Appears that muscleimbalance is increasing joint compression and contributing to bursitis. Would benefit from continuedtherapy to address impairments. Is going to follow up with physician Plan for Next Visit: Continue per POC. Total Timed Codes (Minutes): 30 Total Treatment Time (Minutes): Author: Peri Lay, PT 05/02/2019 14:08 documented in this encounter Plan of Treatment Date Type Specialty Care Team Description 05/09/2019 Office Visit Orthopedics Rojas Gaytan MD [address] [address] Health Maintenance Due Date Last Done Comments [...] PART A & xxxxxxxxxxx 1996-Present Medicare B [employer] BLUE xxxxxxxxxxxx 2014-Present [employer] CROSS PPO ESTmobBS ESTmobBS xxxxxxxxxxxx Effective for all [employer] documented as of this encounter
--- OUTSIDE RECORDS SUMMARY | 2019-06-04 16:44 | XMS REPORT | Summary of Care ---
:1960 Author Organization [facility] Address [address] [place] [address] Care Team Providers Name Role Phone Latesha Alex MD Primary Care Provider Sangita Pierson NP Unavailable Reason for Visit Reason Comments Follow Up right troch bursa Encounter Details Date Type Department Care Team Description 05/23/2019 Office Visit [facility] - Rojas Gaytan, Trochanteric bursitis Jimmie YOUNG of right hip (Primary [address]) [address] [place] [address] [place] [address] [phone] Allergies No Known Allergiesdocumented as of this encounter (statuses as of 05/23/2019) Medications Medication Sig Dispensed Refills Start Date [...] as of this encounter (statuses as of 05/23/2019) Active Problems Problem Noted Date Trochanteric bursitis [...] as of this encounter (statuses as of 05/23/2019) Social History Tobacco Use Types Packs/Day Years Used Date Former Smoker 0.5 3 Comments: quit at age 20 Sex Assigned at Date Recorded Not on file Job Start Date Occupation Industry Not on file Not on file Not on file Travel History Travel Start Travel End No recent travel history available. documented as of this encounter Last Filed Vital Signs Vital Sign Reading Time Taken Comments Blood Pressure - - Pulse - - Temperature - - Respiratory Rate 16 05/23/2019 1:17 PM EDT Oxygen Saturation - - Inhaled Oxygen Concentration - - Weight 106.6 kg (235 lb) 05/23/2019 1:17 PM EDT Height 167.6 cm (5' 6") 05/23/2019 1:17 PM EDT Body Mass Index 37.93 05/23/2019 1:17 PM EDT documented in this encounter Progress Notes Rojas Gaytan MD - 05/23/2019 1:30 PM EDT PATIENT: Autmun Vega : 1960 DATE OF SERVICE: 05/23/2019 SUBJECTIVE: Autumn Vega is a 58-y.o. female. Here for follow up of right troch bursitis. Requests repeat in. OBJECTIVE: Resp 16 | Ht 5' 6" (1.676 m) | Wt 235 lb (106.6 kg) | BMI 37.93 kg/m Pos peritroch tenderness ASSESSMENT: ICD-9-CM ICD-10-CM 1. Trochanteric bursitis of right hip 726.5 M70.61 PLAN: Repeat injection PROCEDURE: The patient was advised of the material risks and benefits of a steroid injection and verbal informed consent was obtained. The skin was prepped with an alcohol sponge and steroid injection was performed in the right troch bursa using 1% plain Lidocaine and 80 mg of depomedrol. This was well tolerated. Author: Rojas Gaytan MD 05/23/2019 13:30 Portions of this note were made with voice recognition software documented in this encounter Plan of Treatment Health Maintenance Due Date Last Done Comments [...] filedocumented in this encounter Visit Diagnoses Diagnosis Trochanteric bursitis of right hip - Primary Enthesopathy of hip region documented in this encounter Insurance Payer Benefit Plan / Subscriber ID Effective Dates Phone Address Type Group MEDICARE MEDICARE PART A & xxxxxxxxxxx 1996-Present Medicare B [employer] BLUE xxxxxxxxxxxx 2014-Present [employer] CROSS PPO [employer] xxxxxxxxxxxx Effective for all [employer] dates documented as of this encounter
[2019-06-04 17:09] VITALS: BP 117/66
--- NOTE | 2019-06-04 18:47 | UC ---
Throat Pain/Nasal Khadar HPI - HPI Summary HPI Summary: 58 yo woman with seizures, complex medical problems, with 2 day hx of nasal drainage and cough productive of light yellow sputum. No fever, no shortness of breath, no hx of pneumonia of lung problems. Very concerned about sputum production and color. Last seizure approximately 2 months ago. No headache, nausea or vomiting. - History of Current Complaint Chief Complaint: UCRespiratory Stated Complaint: COUGH Time Seen by Provider: 06/04/19 18:36 Hx Obtained From: Patient Onset/Duration: Gradual Onset, Lasting Days - 2 Severity: Mild Pain Intensity: 0 Cough: Sputum Appears - yellow Associated Signs & Symptoms: Positive: Hoarseness, Sinus Discomfort, Nasal Discharge. Negative: Dysphagia, Vomiting - Epiglottits Risk Factors Epiglottis Risk Factors: Negative - Allergies/Home Medications Allergies/Adverse Reactions: Allergies Allergy/AdvReac Type Severity Reaction Status Date / Time No Known Allergies Allergy Verified 06/04/19 17:09 Home Medications: Home Medications Clobazam [Onfi] 10 mg PO DAILY 06/04/19 [History Confirmed 06/04/19] PMH/Surg Hx/FS Hx/Imm Hx Endocrine History: Hypothyroidism Neurological History: Seizures Cancer History: Other - anal cancer - Surgical History Surgical History: Yes Surgery Procedure, Year, and Place: colon radiation. full hysterectomy. D&C. Brain surgery - Family History Known Family History: Positive: Hypertension - Mother and sister, Diabetes - sister, Other - Father - lymphoma; sister with breast cancer. - Social History Occupation: Disabled Alcohol Use: None Substance Use Type: None Smoking Status (MU): Former Smoker Type: Cigarettes Length of Time of Smoking/Using Tobacco: 8 years Have You Smoked in the Last Year: No When Did the Patient Quit Smoking/Using Tobacco: 1998 Review of Systems All Other Systems Reviewed And Are Negative: Yes Constitutional: Positive: Chills, Fatigue ENT: Positive: Nasal Discharge, Sinus Congestion Respiratory: Positive: Cough Cardiovascular: Negative: Palpitations, Chest Pain Gastrointestinal: Negative: Abdominal Pain, Vomiting, Nausea Genitourinary: Positive: Negative Motor: Positive: Negative Neurovascular: Positive: Negative Musculoskeletal: Positive: Negative Neurological: Positive: Other - hx of seizures, on 3 medications, taking depakote, lamictal and clobazam. Psychological: Positive: Anxious Is Patient Immunocompromised?: No Physical Exam Triage Information Reviewed: Yes Appearance: No Pain Distress, Ill-Appearing - looks chronically unwell, fatigued., Obese Vital Signs: Initial Vital Signs Temp 97.3 F 06/04/19 17:04 Pulse 80 06/04/19 17:04 Resp 16 06/04/19 17:04 BP 117/66 06/04/19 17:04 Pulse Ox 97 06/04/19 17:04 Eyes: Positive: Conjunctiva Clear ENT: Positive: Pharyngeal erythema, TMs normal, Sinus tenderness Neck: Positive: Supple, Nontender, No Lymphadenopathy Respiratory: Positive: Lungs clear, Normal breath sounds Cardiovascular: Positive: RRR, No Murmur Musculoskeletal Exam: Normal Neurological Exam: Normal Neurological: Positive: Alert, Muscle Tone Normal Psychological Exam: Normal Skin Exam: Normal Throat Pain/Nasal Course/Dx - Course Course Of Treatment: amoxicillin for URI. - Differential Dx/Diagnosis Differential Diagnosis/HQI/PQRI: Sinusitis, Tonsillitis, URI Provider Diagnosis: URI, acute Discharge ED - Sign-Out/Discharge Documenting (check all that apply): Patient Departure All imaging exams completed and their final reports reviewed: No Studies - Discharge Plan Condition: Stable Disposition: HOME Prescriptions: Amoxicillin PO (*) [Amoxicillin 875 MG (*)] 875 mg PO BID #14 tab Patient Education Materials: Upper Respiratory Infection (ED) Referrals: Sangita Pierson NP [Primary Care Provider] - Additional Instructions: You are being prescribed amoxicillin for treatment of your respiratory illness. Ensure a high intake of fluids and rest. - Billing Disposition and Condition Condition: STABLE Disposition: Home
== END 2019-06-04 19:04 | disposition home or self-care (01) ==
LOC: UCEAST 16:38
DX: J06.9 Acute upper respiratory infection, unspecified (principal); R56.9 Unspecified convulsions; Z85.048 Personal history of other malignant neoplasm of rectum, rectosigmoid junction, and anus; Z87.891 Personal history of nicotine dependence
CPT/HCPCS: 99212; G0463

== ENCOUNTER 2019-06-06 17:45 | Emergency (ER) | payer BC, MEDICARE ==
--- NOTE | 2019-06-06 17:51 | UC ---
Skin Complaint HPI - HPI Summary HPI Summary: 58 yo female presents with tick bite. She tells me that 3 days ago she noticed, what she thought was, a scab to his left lower leg. Today she had her try to remove it and he removed a tick. Mildly engorged. Pt thinks it has been there these past 3 days. No symptoms currently. - History of Current Complaint Time Seen by Provider: 06/06/19 17:50 Stated Complaint: TICK Hx Obtained From: Patient Current Severity: None - Allergy/Home Medications Allergies/Adverse Reactions: Allergies Allergy/AdvReac Type Severity Reaction Status Date / Time No Known Allergies Allergy Verified 06/04/19 17:09 PMH/Surg Hx/FS Hx/Imm Hx Endocrine History: Hypothyroidism Neurological History: Seizures Psychological History: Anxiety, Depression, Bipolar Disorder - Surgical History Surgical History: Yes Surgery Procedure, Year, and Place: colon radiation. full hysterectomy. D&C. Brain surgery - Family History Known Family History: Positive: Hypertension - Mother and sister, Diabetes - sister, Other - Father - lymphoma; sister with breast cancer. - Social History Lives: With Family Alcohol Use: None Substance Use Type: None Smoking Status (MU): Former Smoker Type: Cigarettes Length of Time of Smoking/Using Tobacco: 8 years Have You Smoked in the Last Year: No When Did the Patient Quit Smoking/Using Tobacco: 1998 Review of Systems All Other Systems Reviewed And Are Negative: No Constitutional: Positive: Negative Skin: Positive: Other - Tick bite Respiratory: Positive: Negative Cardiovascular: Positive: Negative Neurovascular: Positive: Negative Neurological: Positive: Negative Psychological: Positive: Negative Physical Exam - Summary Physical Exam Summary: GENERAL: NAD. WDWN. No pain distress. SKIN: LEFT LOWER LEG medial aspect there is a 7mm diameter of mild erythema and edema with central 1mm area of superficial skin loss. No streaking, bleeding, or drainage. NECK: Supple. Nontender. No lymphadenopathy. CHEST: No accessory muscle use. Breathing comfortably and in no distress. CV: Pulses intact. Cap refill <2seconds NEURO: Alert. PSYCH: Age appropriate behavior. Triage Information Reviewed: Yes Vital Signs: Vital Signs: Temp Pulse Resp BP Pulse Ox 97.8 F 94 16 154/79 97 06/06/19 17:56 06/06/19 17:56 06/06/19 17:56 06/06/19 17:56 06/06/19 17:56 Vital Signs Reviewed: Yes Course/Dx - Course Course Of Treatment: Given that tick was mildly engorged and has been on approx 72 hours - pt was given 200mg doxycycline in the clinic. Advised to monitor for signs/symptoms of lyme and be rechecked if she develops these - Diagnoses Provider Diagnosis: Tick bite Discharge ED - Sign-Out/Discharge Documenting (check all that apply): Patient Departure All imaging exams completed and their final reports reviewed: No Studies - Discharge Plan Condition: Stable Disposition: HOME Patient Education Materials: Lyme Disease (ED), Tick Bite (ED) Referrals: Sangita Pierson NP [Primary Care Provider] - Additional Instructions: TICK BITE: You have been bitten by a tick. Once the tick is removed, these "bites" usually cause no problems. Tick fever, tick paralysis, [place] Spotted fever, and Lyme disease are uncommon -- but you should mention this tick bite to your doctor if you develop unusual symptoms in the next several weeks. If you develop any of the following, please see your physician promptly: (1) Fever, chills, or generalized malaise associated with a headache. (2) A red round area at the site of the bite (or elsewhere) (3) Joint pain, joint swelling or generalized weakness. (4) Redness, swelling, or drainage at the site of the bite. Ticks do not have a typical "head" attached to their body. There are mouth parts sticking out which they use to feed. If there are mouth parts left behind in the wound there is NO increased risk of Lyme infection or disease transmission. If mouth parts remain after tick removal, the best thing to do is apply warm soaks to the area 3-4 times per day to encourage the skin to expel the foreign material. WHEN A TICK IS NOT ENGORGED AND HAS BEEN ON LESS THAN 24 HOURS - THE RISK FOR LYME IS NEGLIGIBLE. YOU CAN REMOVE THE TICK AND OBSERVE THE AREA ON YOUR OWN. - Billing Disposition and Condition Condition: STABLE Disposition: Home
[2019-06-06 18:01] VITALS: BP 154/79
[2019-06-06] MEDS ORDERED: DOXYcycline CAP(*) 100 MG PO ONE (18:03)
== END 2019-06-06 18:12 | disposition home or self-care (01) ==
LOC: UCEAST 17:45
DX: S80.862A Insect bite (nonvenomous), left lower leg, initial encounter (principal); F31.9 Bipolar disorder, unspecified; Z87.891 Personal history of nicotine dependence; W57.XXXA Bitten or stung by nonvenomous insect and other nonvenomous arthropods, initial encounter; Y92.9 Unspecified place or not applicable
CPT/HCPCS: 99212; A9270-GY; G0463

== ENCOUNTER 2019-06-30 10:29 | Emergency (ER) | payer BC, MEDICARE ==
--- OUTSIDE RECORDS SUMMARY | 2019-06-30 10:37 | XMS REPORT | Summary of Care ---
:1960 Author Organization [facility] Address [address] [place] [address] Care Team Providers Name Role Phone Ltaesha Alex MD Primary Care Provider Sangita Pierson NP Unavailable Reason for Visit Reason Comments Hip Pain Encounter Details Date Type Department Care Team Description 06/20/2019 Office Visit [facility] - Peri Lay, PT Right hip pain [address] (Primary Dx) Therapy [address] [place] [address] [address] [phone] [phone] Allergies No Known Allergiesdocumented as of this encounter (statuses as of 06/20/2019) Medications Medication Sig Dispensed Refills Start Date [...] as of this encounter (statuses as of 06/20/2019) Active Problems Problem Noted Date Trochanteric bursitis [...] as of this encounter (statuses as of 06/20/2019) Social History Tobacco Use Types Packs/Day Years [...] encounter Progress Notes Peri Lay, PT - 06/20/2019 10:00 AM EST [facility] Treatment Note Outpatient Physical Therapy Services [facility] [address] [place] [phone] Treatment Number: [id number] Referring Physician: Rojas Gaytan Primary Diagnosis: ICD-9-CM ICD-10-CM 1. Right hip pain 719.45 M25.551 Plan of Care Expiration Date: Time In: 1000 Time Out: 1030 Total Session Minutes: 30 Pain at Start of Care: 3 Pain at End of Care: 09/15 Subjective Comments: Seems a little better today. Still some pain with getting shoes on. Interventions: Therapeutic Exercises (29958) Number of Exercises?: 10 Total Minutes (all Therapeutic Exercise): 25 Exercise #3 Exercise Name: pricilla gomez Reason for Exercise: Flexibility Location/Body Area: Hip Sets/Reps: 3x30 seconds Exercise #5 Exercise Name: iformis stretch Reason for Exercise: Flexibility Location/Body Area: Hip Sets/Reps: 3x30 seconds Exercise #6 Exercise Name: bridge Reason for Exercise: Strengthening Location/Body Area: Hip Sets/Reps: 10 Exercise #7 Exercise Name: standing gastroc/hip flexor stretch Reason for Exercise: Flexibility Location/Body Area: Hip Sets/Reps: 3x30 seconds Exercise #8 Exercise Name: butterfly stretch Reason for Exercise: Flexibility Location/Body Area: Hip Sets/Reps: 3x30 seconds Exercise #9 Exercise Name: clamshells Reason for Exercise: Strengthening Location/Body Area: Hip Sets/Reps: 10 Resistance: blue Ultrasound (48981) Reason for Use: soft tissue extensibility Body Area: right hip Frequency: 1.0 MHz Frequency Description: Continuous Intensity: 1 Total Minutes: 5 minutes Assessment: Patient demonstrates good recall of HEP but requires cueing for counts/holds. Patient also reports ongoing difficulty in stairs, putting shoes on, sit to stand.. Skilled Physical Therapyservices are required to address ongoing functional and objective limitations/impairments including decreased hip ROM, decreased core and lateral hip strength, decreased LE flexibility, impaired posture. Plan for Next Visit: Continue per POC. Total UNTIMED Code Treatment Minutes: Total TIMED Code Treatment Minutes: 30 Total Treatment Minutes: 30 Author: Peri Lay, ERICA 06/20/2019 10:34 documented in this encounter Plan of Treatment Date Type Specialty Care Team Description 06/27/2019 Office Visit Physical Therapy Peri Lay, PT [address] [place] [address] [phone] 07/11/2019 Office Visit Physical Therapy Peri Lay, PT [address] [place] [address] [phone] Health Maintenance Due Date Last Done Comments [...] PART A & xxxxxxxxxxx 1996-Present Medicare B [employer] BLUE xxxxxxxxxxxx 2014-Present [employer] CROSS PPO [employer] xxxxxxxxxxxx Effective for all [employer] documented as of this encounter
--- OUTSIDE RECORDS SUMMARY | 2019-06-30 10:37 | XMS REPORT | Summary of Care ---
:1960 Author Organization [facility] Address [address] [address] Care Team Providers Name Role Phone Latesha Alex MD Primary Care Provider Sangita Pierson NP Unavailable Reason for Visit Reason Comments Hip Pain Encounter Details Date Type Department Care Team Description 06/19/2019 Office Visit [facility] - Peri Lay, PT Right hip pain [address] (Primary Dx) Therapy [address] [place] [address] [address] [phone] [phone] Allergies No Known Allergiesdocumented as of this encounter (statuses as of 06/19/2019) Medications Medication Sig Dispensed Refills Start Date [...] as of this encounter (statuses as of 06/19/2019) Active Problems Problem Noted Date Trochanteric bursitis [...] as of this encounter (statuses as of 06/19/2019) Social History Tobacco Use Types Packs/Day Years [...] encounter Progress Notes Peri Lay, PT - 06/19/2019 4:00 PM EST [facility] Treatment Note Outpatient Physical Therapy Services [facility] [address] [place] [phone] Treatment Number: 12 Referring Physician: Rojas Gaytan Primary Diagnosis: ICD-9-CM ICD-10-CM 1. Right hip pain 719.45 M25.551 Plan of Care Expiration Date: Time In: 349 Time Out: 419 Total Session Minutes: 30 Pain at Start of Care: 210 Pain at End of Care: 2 Subjective Comments: Hip still hurts. Hard to get shoes on. Is going to get a massage to see if itwill help. Interventions: Hip ER 68 on right Therapeutic Exercises (76298) Number of Exercises?: 10 Total Minutes (all Therapeutic Exercise): 25 Exercise #3 Exercise Name: pricilla gomez Reason for Exercise: Flexibility Location/Body Area: Hip Sets/Reps: 3x30 seconds Exercise #4 Exercise Name: LTR Reason for Exercise: Joint Mobility Location/Body Area: Lumbar Spine Sets/Reps: 8 Exercise #5 Exercise Name: piriformis stretch Reason for Exercise: Flexibility Location/Body Area: Hip Sets/Reps: 3x30 seconds Exercise #6 Exercise Name: bridge Reason for Exercise: Strengthening Location/Body Area: Hip Sets/Reps: 10 Exercise #8 Exercise Name: butterfly stretch Reason for Exercise: Flexibility Location/Body Area: Hip Sets/Reps: 3x30 seconds Exercise #9 Exercise Name: clamshells Reason for Exercise: Strengthening Location/Body Area: Hip Sets/Reps: 10 Resistance: blue Modalities Modalities Needed?: Ultrasound Ultrasound (66616) Reason for Use: soft tissue extensibility Body Area: right hip Frequency: 1.0 MHz Frequency Description: Continuous Intensity: 1 Total Minutes: 5 minutes Assessment: Patient demonstrates good recall of HEP. Patient also reports ongoing difficulty in crossing legs, sleeping on the right, putting shoes on. Skilled Physical Therapy services are requiredto address ongoing functional and objective limitations/impairments including decreased LE flexibility, decreased core and hip strength, pain/inflammation. Plan for Next Visit: Continue per POC. Total UNTIMED Code Treatment Minutes: Total TIMED Code Treatment Minutes: 30 Total Treatment Minutes: 30 Author: Peri Lay PT 06/19/2019 16:25 documented in this encounter Plan of Treatment Date Type Specialty Care Team Description 06/20/2019 Office Visit Physical Therapy Peri Lay, PT [address] [place] [address] [phone] 06/27/2019 Office Visit Physical Therapy Peri Lay, PT [address] [place] [address] [phone] 07/11/2019 Office Visit Physical Peri Richardson, PT [address] [place] [address] [phone] Health Maintenance Due Date Last Done Comments [...] BCBS EXCELLUS BCBS [id number] Effective for all Photos to Photos dates documented as of this encounter
--- OUTSIDE RECORDS SUMMARY | 2019-06-30 10:38 | XMS REPORT | Summary of Care ---
:1960 Author Organization [facility] Address [address] [address] Care Team Providers Name Role Phone Latesha Alex MD Primary Care Provider Sangita Pierson NP Unavailable Reason for Visit Reason Comments Hip Pain Encounter Details Date Type Department Care Team Description 06/13/2019 Office Visit [facility] - Peri Lay, PT Right hip pain [address] (Primary Dx) Therapy [address] [place] [address] [address] [phone] [phone] Allergies No Known Allergiesdocumented as of this encounter (statuses as of 06/13/2019) Medications Medication Sig Dispensed Refills Start Date [...] as of this encounter (statuses as of 06/13/2019) Active Problems Problem Noted Date Trochanteric bursitis [...] as of this encounter (statuses as of 06/13/2019) Social History Tobacco Use Types Packs/Day Years [...] encounter Progress Notes Peri Lay, PT - 06/13/2019 12:00 PM EST [facility] Treatment Note Outpatient Physical Therapy Services [facility] [address] [place] [phone] Treatment Number: Referring Physician: Rojas Gaytan Primary Diagnosis: ICD-9-CM ICD-10-CM 1. Right hip pain 719.45 M25.551 Plan of Care Expiration Date: Time In: Time Out: Total Session Minutes: Pain at Start of Care: Pain at End of Care: Subjective Comments: No change in right hip pain since injection. Still hurts to bend her trunk orbend toward her leg. Pain is lateral. Interventions: Assessment: Patient demonstrates impaired posture with decreased hip flexor length and excessive lordosis. Responds well to treatment. Suggested performing stretches more often. . Patient also reports ongoing difficulty in putting shoes/socks on, prolonged walking, stairs. Skilled Physical Therapy services are required to address ongoing functional and objective limitations/ impairments including decreaesd LE flexibility, decreased core and lateral hip strength, impaired posture. Plan for Next Visit: Continue per POC. Total UNTIMED Code Treatment Minutes: Total TIMED Code Treatment Minutes: Total Treatment Minutes: Author: Peri Lay, PT 06/13/2019 12:00 documented in this encounter Plan of Treatment Date Type Specialty Care Team Description 06/19/2019 Office Visit Physical Therapy Peri Lay, PT [address] [place] [address] [place] [address] [phone] 06/27/2019 Office Visit Physical Therapy Peri Lay, PT [address] [place] [address] [place] [address] [phone] 07/11/2019 Office Visit Physical Therapy Peri Lay, PT [address] [place] [address] [place] [address] [phone] Health Maintenance Due Date Last Done Comments [...] BCBS EXCELLUS BCBS [id number] Effective for all [email or web address] dates documented as of this encounter
[2019-06-30 10:41] VITALS: BP 143/77
--- NOTE | 2019-06-30 11:06 | UC ---
Respiratory Complaint HPI - HPI Summary HPI Summary: Ms. Vega started 2 days ago with nasal congestion, forehead pain and a nagging cough which is productive of green sputum. She does not think she said any fever or chills. - History of Current Complaint Chief Complaint: UCGeneralIllness Stated Complaint: COUGH HEADACHE Hx Obtained From: Patient ?: Yes Onset/Duration: Gradual Onset Severity Initially: Moderate Severity Currently: Moderate Pain Intensity: 5 Character: Cough: Productive Associated Signs And Symptoms: Positive: Nasal Congestion, Sinus Discomfort - Allergies/Home Medications Allergies/Adverse Reactions: Allergies Allergy/AdvReac Type Severity Reaction Status Date / Time No Known Allergies Allergy Verified 06/30/19 10:42 PMH/Surg Hx/FS Hx/Imm Hx Previously Healthy: Yes Neurological History: Seizures - Surgical History Surgical History: Yes Surgery Procedure, Year, and Place: colon radiation. full hysterectomy. D&C. Brain surgery - Family History Known Family History: Positive: Hypertension - Mother and sister, Diabetes - sister, Other - Father - lymphoma; sister with breast cancer. - Social History Alcohol Use: None Substance Use Type: None Smoking Status (MU): Former Smoker Type: Cigarettes Length of Time of Smoking/Using Tobacco: 8 years Have You Smoked in the Last Year: No When Did the Patient Quit Smoking/Using Tobacco: 1998 Review of Systems All Other Systems Reviewed And Are Negative: Yes ENT: Positive: Nasal Discharge, Sinus Congestion, Sinus Pain/Tenderness Respiratory: Positive: Cough Physical Exam - Summary Physical Exam Summary: She is nontoxic in appearance with stable vital signs Triage Information Reviewed: Yes Appearance: Well-Appearing Vital Signs: Initial Vital Signs Temp 98.8 F 06/30/19 10:36 Pulse 99 06/30/19 10:36 Resp 18 06/30/19 10:36 BP 143/77 06/30/19 10:36 Pulse Ox 99 06/30/19 10:36 Vital Signs Reviewed: Yes ENT: Positive: Pharynx normal, Nasal congestion - Her sinuses transilluminate well, TMs normal Neck exam: Normal Respiratory Course/Dx - Course Course Of Treatment: . This seems like a viral URI. Influenza swab was negative. I recommended symptomatic treatment and sent a prescription for guaifenesin AC. - Differential Dx/Diagnosis Provider Diagnosis: URI (upper respiratory infection) Discharge ED - Sign-Out/Discharge Documenting (check all that apply): Patient Departure All imaging exams completed and their final reports reviewed: No Studies - Discharge Plan Condition: Stable Disposition: HOME Patient Education Materials: Upper Respiratory Infection (ED) Referrals: Sangita Pierson NP [Primary Care Provider] - - Billing Disposition and Condition Condition: STABLE Disposition: Home
[2019-06-30 11:26] LABS: Influenza A Molecular NEGATIVE (Negative); Influenza B Molecular NEGATIVE (Negative)
== END 2019-06-30 11:53 | disposition home or self-care (01) ==
LOC: UCEAST 10:29
DX: J06.9 Acute upper respiratory infection, unspecified (principal); Z87.891 Personal history of nicotine dependence
CPT/HCPCS: 99211; G0463

== ENCOUNTER 2020-03-13 18:17 | Inpatient (IN) ==
[2020-03-13] MEDS ORDERED: NS 0.9% 1000 ml BAG 1,000 ML IV ONE (19:00)
[2020-03-13 19:53] LABS: Hematocrit 40 % (35-47); Hemoglobin 13.4 g/dL (12.0-16.0); Mean Corpuscular HGB Conc 34 g/dL (31-36); Mean Corpuscular Hemoglobin 34 pg (27-31); Mean Corpuscular Volume 100 fL (80-97); Mean Platelet Volume 7.2 fL (7.4-10.4); Platelet Count 292 10^3/uL (150-450); Red Blood Count 3.94 10^6 /uL (3.70-4.87); Red Cell Distribution Width 13 % (10-15); White Blood Count 12.5 10^3/uL (3.5-10.8)
[2020-03-13 19:58] LABS: INR 0.96 (0.82-1.09)
[2020-03-13 20:11] LABS: Albumin/Globulin Ratio 1.4 (1-3); BUN/Creatinine Ratio 12.8 (8-20); C Reactive Protein 23.66 mg/L (<8.01); Calcium 9.6 mg/dL (8.6-10.3); EGFR African American 81.7 (>60); EGFR Non-African American 67.5 (>60); Globulin 2.8 g/dL (2-4); Potassium 4.3 mmol/L (3.5-5.0); Total Bilirubin 0.4 mg/dL (0.2-1.0); Total Protein 6.8 g/dL (6.4-8.9)
[2020-03-13 20:48] LABS: ABS Basophils 0.2 10^3/ul (0-0.2); ABS Eosinophils 0.1 10^3/ul (0-0.6); ABS Lymphocytes 0.6 10^3/ul (1.0-4.8); ABS Monocytes 0.4 10^3/ul (0-0.8); ABS Neutrophils 11.2 10^3/ul (1.5-7.7); Eosinophil % 0.9 %; Lymphocyte % 5.1 %; Nucleated Red Blood Cells % 0.1
[2020-03-13] MEDS ORDERED: ceFAZolin 1 GM ADVAN 1 GM ADDV.VIAL IVPB SCH (23:30)
[2020-03-14] MEDS: Enoxaparin 40 MG/0.4 ML SYR SUBCUT SCH ×2 (00:18→20:10)
[2020-03-14] MEDS: ceFAZolin 1 GM* Q8H (AddVan) IVPB SCH ×4 (00:19→23:38)
[2020-03-14 05:18] LABS: ABS Basophils 0.1 10^3/ul (0-0.2); ABS Eosinophils 0.2 10^3/ul (0-0.6); ABS Monocytes 0.8 10^3/ul (0-0.8); ABS Neutrophils 9.8 10^3/ul (1.5-7.7); Hematocrit 33 % (35-47); Hemoglobin 11.6 g/dL (12.0-16.0); Lymphocyte % 8.6 %; Mean Corpuscular HGB Conc 35 g/dL (31-36); Mean Corpuscular Hemoglobin 35 pg (27-31); Mean Corpuscular Volume 100 fL (80-97); Mean Platelet Volume 7.3 fL (7.4-10.4); Nucleated Red Blood Cells % 0.1; Platelet Count 219 10^3/uL (150-450); Red Blood Count 3.35 10^6 /uL (3.70-4.87); Red Cell Distribution Width 13 % (10-15); White Blood Count 11.9 10^3/uL (3.5-10.8)
[2020-03-14 05:34] LABS: Calcium 8.8 mg/dL (8.6-10.3); EGFR African American 92.8 (>60); EGFR Non-African American 76.7 (>60); Potassium 3.9 mmol/L (3.5-5.0)
[2020-03-14 06:04] LABS: TSH (Thyroid Stimulating Horm) 1.42 mcIU/mL (0.34-5.60)
[2020-03-14] MEDS ORDERED: Perflutren Lipid Microsphere 3 ML VIAL ONE (08:00)
[2020-03-14] MEDS ORDERED: Conjugated Estrogens 0.3mg TAB PO SCH ×2 (09:00→21:00)
[2020-03-14] MEDS: Furosemide 20 mg/2 ml IV VIAL IV SCH ×2 (09:49→20:01)
[2020-03-14 14:44] LABS: Urine Appearance Clear; Urine Bilirubin Negative (Negative); Urine Blood Negative (Negative); Urine Color Yellow; Urine Glucose Negative (Negative); Urine Ketones Negative (Negative); Urine Nitrite Negative (Negative); Urine Protein Negative (Negative); Urine Specific Gravity 1.008 (1.010-1.030); Urine Urobilinogen Negative (Negative)
[2020-03-15 05:57] LABS: ABS Basophils 0.1 10^3/ul (0-0.2); ABS Eosinophils 0.3 10^3/ul (0-0.6); ABS Lymphocytes 1.2 10^3/ul (1.0-4.8); ABS Monocytes 0.9 10^3/ul (0-0.8); ABS Neutrophils 5.8 10^3/ul (1.5-7.7); Hematocrit 34 % (35-47); Hemoglobin 11.8 g/dL (12.0-16.0); Lymphocyte % 14.2 %; Mean Corpuscular HGB Conc 35 g/dL (31-36); Mean Corpuscular Hemoglobin 35 pg (27-31); Mean Corpuscular Volume 101 fL (80-97); Nucleated Red Blood Cells % 0.2; Platelet Count 216 10^3/uL (150-450); Red Blood Count 3.32 10^6 /uL (3.70-4.87); Red Cell Distribution Width 13 % (10-15); White Blood Count 8.2 10^3/uL (3.5-10.8)
[2020-03-15] MEDS: Furosemide 20 mg/2 ml IV VIAL IV SCH (08:05)
[2020-03-15] MEDS: ceFAZolin 1 GM* Q8H (AddVan) IVPB SCH ×2 (08:05→15:08)
[2020-03-15 16:28] VITALS: BP 113/53
== END 2020-03-15 17:25 | disposition home or self-care (01) | DRG 720 ==
LOC: ED 18:17 → SSU 21:49
PROVIDERS: ADMIT Student in an Organized Health Care Education/Training Program; ATTEND Internal Medicine

== ENCOUNTER 2021-12-21 05:54 | Inpatient (IN) ==
[2021-12-21] MEDS ORDERED: Lactated Ringers 1000 ml BAG 1,000 ML IV SCH (06:00)
[2021-12-21] MEDS ORDERED: Buffered Lidocaine 1% SYRIN 1 ml INTRADERM ONE (06:00)
[2021-12-21] MEDS ORDERED: ceFAZolin 2 GM in NS PREMIX 2 GM/100 ML BAG IVPB ONE (06:27)
[2021-12-21] MEDS ORDERED: Bupivacaine 0.25% SDV PF 10 ML VIAL INJ ONE ×2 (06:51→07:53)
[2021-12-21] MEDS ORDERED: ceFAZolin VIAL VIAL ONE ×2 (06:51→12:46)
[2021-12-21 06:58] LABS: Rapid COVID-19 Molecular Undetected (Undetected)
[2021-12-21] MEDS ORDERED: Propofol 10 MG/ML 20 ML BTL ONE (07:01)
[2021-12-21] MEDS ORDERED: fentaNYL 250 mcg/5 ml 50 MCG/ML 5 ml VIAL (250 MCG) ONE (07:02)
[2021-12-21] MEDS ORDERED: Midazolam 2 mg/2 ml VIAL 1 mg/ml 2 ml VIAL (2 mg) ONE (07:04)
[2021-12-21] MEDS ORDERED: Phenylephrine IV 10 MG/ML 1 ml VIAL ONE (07:04)
[2021-12-21] MEDS ORDERED: Remifentanil 2 MG VIAL ONE ×2 (07:10→10:59)
[2021-12-21] MEDS ORDERED: Succinylcholine 200 mg VIAL 20 mg/ml 10 ml VIAL (200 mg) ONE (07:16)
[2021-12-21] MEDS ORDERED: Rocuronium 50 mg VIAL 10 mg/ml 5 ml VIAL (50 mg) ONE (07:16)
[2021-12-21] MEDS ORDERED: Propofol 10 mg/ml 100 ML BTL 400 ML ONE (07:19)
[2021-12-21] MEDS ORDERED: BUPIVACAINE **LIPOSOME/PF 13.3 MG/ML (266MG/ 20ML) VIAL (RESTRICTED) INFIL ONE (08:00)
[2021-12-21] MEDS ORDERED: Dexamethasone IV 4 MG/ML VIAL 1 ml VIAL ONE (09:06)
[2021-12-21] MEDS ORDERED: EPHEDrine (Pressors) 50 MG/ML VIAL ONE (09:06)
[2021-12-21] MEDS ORDERED: HYDROmorphone 0.5 MG/0.5 ML SYRINGE ONE ×2 (09:16→13:26)
[2021-12-21] MEDS ORDERED: Acetaminophen IV 1 GM/100ML 100 ML IV ONE (12:00)
[2021-12-21] MEDS ORDERED: Sterile Water for Inj 10 ML ONE (12:46)
[2021-12-21] MEDS ORDERED: Naloxone 0.4 mg VIAL 0.4 mg/ml 1 ml VIAL IV PRN (13:28)
[2021-12-21] MEDS ORDERED: Ondansetron 4 mg VIAL 2 MG/ML 2 ml VIAL IV PRN ×2 (13:28→13:35)
[2021-12-21] MEDS ORDERED: Ondansetron 4 mg VIAL 2 MG/ML 2 ml VIAL ONE (13:37)
[2021-12-21] MEDS ORDERED: fentaNYL 100 mcg/2 ml 50 MCG/ML VIAL ONE (13:37)
[2021-12-21] MEDS: fentaNYL 100 mcg/2 ml 50 MCG/ML VIAL IV PRN ×2 (13:39→13:50)
[2021-12-21] MEDS: HYDROcodone/ACETAMIN 5/325 mg TAB PO PRN ×2 (16:45→21:26)
[2021-12-22] MEDS: HYDROcodone/ACETAMIN 5/325 mg TAB PO PRN ×3 (02:10→20:37)
[2021-12-22 05:41] LABS: Hematocrit 36 % (35-47); Hemoglobin 12.1 g/dL (12.0-16.0); Mean Corpuscular HGB Conc 34 g/dL (31-36); Mean Corpuscular Hemoglobin 34 pg (27-31); Mean Corpuscular Volume 100 fL (80-97); Platelet Count 246 10^3/uL (150-450); Red Blood Count 3.59 10^6 /uL (3.70-4.87); Red Cell Distribution Width 12 % (10-15)
[2021-12-22 06:02] LABS: Blood Urea Nitrogen 8 mg/dL (6-24); CO2 Carbon Dioxide 28 mmol/L (22-32); Calcium 9.3 mg/dL (8.6-10.3); Chloride 95 mmol/L (101-111); Glucose 129 mg/dL (70-100); Sodium 128 mmol/L (135-145); eGFR CKD-EPI 100.5 (>60)
[2021-12-22 06:10] LABS: Anion Gap 5 mmol/L (2-11)
[2021-12-22] MEDS: Conjugated Estrogens 0.3mg TAB PO SCH (09:32)
[2021-12-22 10:21] LABS: Osmolality Serum 276 mOsm/kg (275-295)
[2021-12-22] MEDS ORDERED: NS 0.9% 1000 ml BAG 1,000 ML IV SCH (13:45)
[2021-12-22 18:52] LABS: Urine Osmo 850 mOsm/kg (150-1150)
[2021-12-23] MEDS: HYDROcodone/ACETAMIN 5/325 mg TAB PO PRN ×4 (04:28→22:08)
[2021-12-23 06:07] LABS: Hematocrit 35 % (35-47); Hemoglobin 11.5 g/dL (12.0-16.0)
[2021-12-23 06:36] LABS: Calcium 8.7 mg/dL (8.6-10.3); Potassium 4.6 mmol/L (3.5-5.0); eGFR CKD-EPI 104.2 (>60)
[2021-12-23] MEDS: Conjugated Estrogens 0.3mg TAB PO SCH (08:12)
[2021-12-23 17:01] LABS: ABS Eosinophils 0.1 10^3/ul (0-0.6); ABS Lymphocytes 1.2 10^3/ul (1.0-4.8); ABS Monocytes 1.4 10^3/ul (0-0.8); ABS Neutrophils 9.1 10^3/ul (1.5-7.7); Eosinophil % 0.6 %; Hematocrit 35 % (35-47); Hemoglobin 11.6 g/dL (12.0-16.0); Lymphocyte % 10.4 %; Mean Corpuscular HGB Conc 33 g/dL (31-36); Mean Corpuscular Hemoglobin 33 pg (27-31); Mean Corpuscular Volume 100 fL (80-97); Mean Platelet Volume 7.1 fL (7.4-10.4); Platelet Count 246 10^3/uL (150-450); Red Blood Count 3.52 10^6 /uL (3.70-4.87); Red Cell Distribution Width 13 % (10-15); White Blood Count 11.8 10^3/uL (3.5-10.8)
[2021-12-23 17:18] LABS: Activated Partial Thrombo Time 29.8 seconds (26.0-38.0); INR 0.97 (0.86-1.15)
[2021-12-23] MEDS: Heparin 5000 UNITS/ML 1 mL VIAL SUBCUT SCH (22:07)
[2021-12-24] MEDS: Heparin 5000 UNITS/ML 1 mL VIAL SUBCUT SCH ×3 (05:42→23:00)
[2021-12-24] MEDS: HYDROcodone/ACETAMIN 5/325 mg TAB PO PRN (06:39)
[2021-12-24 06:59] LABS: Calcium 8.9 mg/dL (8.6-10.3); Potassium 4.4 mmol/L (3.5-5.0); eGFR CKD-EPI 102.5 (>60)
[2021-12-24] MEDS ORDERED: Senna TAB 8.6 mg TAB PO PRN (08:03)
[2021-12-24] MEDS ORDERED: oxyCODONE/Acetamin 5/325 mg TAB PO PRN (10:32)
[2021-12-24] MEDS: Polyethylene Glycol 3350 17 GM PACKET PO SCH (10:54)
[2021-12-24] MEDS: Magnesium Hydroxide LIQ 30 ML UDC PO SCH ×2 (10:55→23:00)
[2021-12-24] MEDS: oxyCODONE/Acetamin 5/325 mg TAB PO PRN ×2 (10:55→15:30)
[2021-12-24] MEDS: Conjugated Estrogens 0.3mg TAB PO SCH (10:56)
[2021-12-25] MEDS: oxyCODONE/Acetamin 5/325 mg TAB PO PRN ×2 (04:01→11:42)
[2021-12-25] MEDS: Heparin 5000 UNITS/ML 1 mL VIAL SUBCUT SCH ×3 (05:47→21:35)
[2021-12-25 06:21] LABS: ABS Eosinophils 0.1 10^3/ul (0-0.6); ABS Lymphocytes 1.4 10^3/ul (1.0-4.8); ABS Monocytes 0.8 10^3/ul (0-0.8); ABS Neutrophils 4.8 10^3/ul (1.5-7.7); Eosinophil % 1.6 %; Hematocrit 34 % (35-47); Hemoglobin 11.5 g/dL (12.0-16.0); Mean Corpuscular HGB Conc 34 g/dL (31-36); Mean Corpuscular Hemoglobin 33 pg (27-31); Mean Corpuscular Volume 99 fL (80-97); Mean Platelet Volume 6.9 fL (7.4-10.4); Platelet Count 241 10^3/uL (150-450); Red Blood Count 3.46 10^6 /uL (3.70-4.87); Red Cell Distribution Width 12 % (10-15); White Blood Count 7.2 10^3/uL (3.5-10.8)
[2021-12-25 06:38] LABS: Calcium 8.6 mg/dL (8.6-10.3); Potassium 4.4 mmol/L (3.5-5.0); eGFR CKD-EPI 105.6 (>60)
[2021-12-25] MEDS: Polyethylene Glycol 3350 17 GM PACKET PO SCH (08:33)
[2021-12-25] MEDS: Conjugated Estrogens 0.3mg TAB PO SCH (08:33)
[2021-12-25] MEDS: Magnesium Hydroxide LIQ 30 ML UDC PO SCH ×2 (08:34→21:35)
[2021-12-26] MEDS: oxyCODONE/Acetamin 5/325 mg TAB PO PRN ×4 (03:04→20:08)
[2021-12-26] MEDS: Heparin 5000 UNITS/ML 1 mL VIAL SUBCUT SCH ×3 (05:15→23:14)
[2021-12-26 06:00] LABS: ABS Eosinophils 0.1 10^3/ul (0-0.6); ABS Lymphocytes 1.4 10^3/ul (1.0-4.8); ABS Monocytes 0.8 10^3/ul (0-0.8); ABS Neutrophils 4.9 10^3/ul (1.5-7.7); Eosinophil % 1.3 %; Hematocrit 35 % (35-47); Hemoglobin 11.7 g/dL (12.0-16.0); Lymphocyte % 19.6 %; Mean Corpuscular HGB Conc 33 g/dL (31-36); Mean Corpuscular Hemoglobin 33 pg (27-31); Mean Corpuscular Volume 99 fL (80-97); Mean Platelet Volume 6.9 fL (7.4-10.4); Platelet Count 296 10^3/uL (150-450); Red Blood Count 3.54 10^6 /uL (3.70-4.87); Red Cell Distribution Width 12 % (10-15); White Blood Count 7.3 10^3/uL (3.5-10.8)
[2021-12-26] MEDS: Polyethylene Glycol 3350 17 GM PACKET PO SCH (08:55)
[2021-12-26] MEDS: Magnesium Hydroxide LIQ 30 ML UDC PO SCH ×2 (08:55→20:09)
[2021-12-26] MEDS: Conjugated Estrogens 0.3mg TAB PO SCH (09:12)
[2021-12-26] MEDS ORDERED: Conjugated Estrogens 0.3mg TAB PO SCH (21:00)
[2021-12-27] MEDS: Heparin 5000 UNITS/ML 1 mL VIAL SUBCUT SCH (06:15)
[2021-12-27] MEDS: oxyCODONE/Acetamin 5/325 mg TAB PO PRN ×2 (06:15→10:14)
[2021-12-27 06:17] LABS: ABS Eosinophils 0.2 10^3/ul (0-0.6); ABS Lymphocytes 1.8 10^3/ul (1.0-4.8); ABS Monocytes 0.8 10^3/ul (0-0.8); ABS Neutrophils 3.3 10^3/ul (1.5-7.7); Eosinophil % 3.3 %; Hematocrit 33 % (35-47); Hemoglobin 11.2 g/dL (12.0-16.0); Mean Corpuscular HGB Conc 34 g/dL (31-36); Mean Corpuscular Hemoglobin 34 pg (27-31); Mean Corpuscular Volume 101 fL (80-97); Mean Platelet Volume 6.7 fL (7.4-10.4); Nucleated Red Blood Cells % 0.1; Platelet Count 297 10^3/uL (150-450); Red Cell Distribution Width 12 % (10-15); White Blood Count 6.1 10^3/uL (3.5-10.8)
[2021-12-27 06:54] LABS: Calcium 8.7 mg/dL (8.6-10.3); eGFR CKD-EPI 105.2 (>60)
[2021-12-27 07:59] VITALS: BP 113/71
[2021-12-27] MEDS: Polyethylene Glycol 3350 17 GM PACKET PO SCH (09:38)
[2021-12-27] MEDS: Magnesium Hydroxide LIQ 30 ML UDC PO SCH (09:38)
== END 2021-12-27 12:25 | DRG 460 ==
LOC: SSU → AA 05:54 → INTOOBSV 05:54
PROVIDERS: ADMIT Neurological Surgery; ATTEND Neurological Surgery